=== PATIENT | male | born 1965 | race Caucasian/White ===

== ENCOUNTER → 2020-08-06 13:44 | Outpatient (CLI) | payer BC, SELFPAY ==
[2020-08-06 14:49] LABS: COVID19 -Nasal RAPID Negative (Negative)
== END ==
PROVIDERS: PCP Student in an Organized Health Care Education/Training Program; Visit Provider Nurse Practitioner
DX: Z20.822 Contact with and (suspected) exposure to COVID-19 (principal)
CPT/HCPCS: 87635

== ENCOUNTER 2020-08-08 13:28 | Day surgery (SDC) | payer BC, SELFPAY ==
[2020-08-08] VITALS (7 sets, daily range): BP systolic 141–154; BP diastolic 85–99; PULSE 46–67; RESP 10–20; TEMP 36.2–36.8; O2SAT 93–99; BMI 34.4
--- NOTE | 2020-08-08 | PATH_ITS ---
[facility] Accession Number: [id number] . 01 Material submitted: . PART A: cecum - CECAL POLYP 2 MM PART B: sigmoid colon - SIGMOID COLON 8 MM . 01 Clinical history: . SCREENING COLONOSCOPY . 02 Diagnosis: A. Cecal Polyp, 2 mm, Biopsy: Tubular adenoma. . B. Sigmoid Colon Polyp, 8 mm, Biopsy: Tubular adenoma. MRV 08/13/2020 1032 Local . 02 Electronically signed: . Ebenezer Patton MD, PhD, Pathologist NPI- [id number] . 01 Gross description: . Part A: CECAL POLYP 2 MM: Received in formalin is 1 fragment(s) of jeffries, soft tissue measuring 0.1 x 0.1 x 0.1 cm submitted entirely in 1 cassette(s) Part B: SIGMOID COLON 8 MM: Received in formalin are 4 fragment(s) of jeffries, soft tissue measuring 0.2 x 0.2 x 0.2 cm to 0.4 x 0.3 x 0.2 cm submitted entirely in 1 cassette(s) /TRE 08/11/2020 1930 Local . 02 Pathologist provided ICD-10: D12.0, D12.5 . 02 CPT . 133237, [id number] Performed at: 01 [facility] [address], [place], [place] [id number] MD Iam Lind MD Phone: [phone] Performed at: 02 [facility] [address] [place], [place] [id number] MD Angie Rollins MD Phone: [phone]
--- NOTE | 2020-08-08 | DI.RAD.S_ITS ---
PROCEDURE: XR ABDOMEN 1V INDICATIONS: distended abd TECHNIQUE: One view of the abdomen acquired. 2 images. Decubitus. COMPARISON: None. FINDINGS: Surgical changes and devices: None. Bowel: Gaseous distension of bowel loops on this decubitus radiograph. Small air-fluid levels. No obvious pneumoperitoneum. Possible small clip in the pelvis. Soft tissues: No suspicious abdominal calcifications. Visualized solid organ contours appear normal in size. Bones: No suspicious bony lesions. IMPRESSION: No obvious pneumoperitoneum. Upright abdominal radiograph or CT abdomen pelvis with IV contrast could be considered for further evaluation. Dictated by: Daniel Valencia M.D. on 08/08/2020 at 15:53 Approved by: Daniel Valencia M.D. on 08/08/2020 at 15:55
--- NOTE | 2020-08-08 | DI.RAD.S_ITS ---
PROCEDURE: XR ABDOMEN 1V INDICATIONS: r/o perforation, abdominal distention s/p colonosocopy TECHNIQUE: One view of the abdomen acquired. COMPARISON: [facility], CR, XR ABDOMEN 1V, 08/08/2020, 15:42. FINDINGS: Surgical changes and devices: Clip versus is Mallory catheter in the pelvis. Bowel: There is gaseous distension of the colon. Small air-fluid level in the cecum. Scattered small bowel gas. No pneumoperitoneum is seen under the diaphragm. Soft tissues: No suspicious abdominal calcifications. Visualized solid organ contours appear normal in size. Visualized lung bases are unremarkable. Bones: No suspicious bony lesions. IMPRESSION: No free air under the diaphragm is seen. If symptoms persist or high suspicion for occult perforation recommend CT abdomen pelvis with IV contrast. Dictated by: Daniel Valencia M.D. on 08/08/2020 at 16:43 Approved by: Daniel Valencia M.D. on 08/08/2020 at 16:46
--- NOTE | 2020-08-08 12:10 | PM.HP.1 ---
History of Present Illness History of Present Illness Date Patient Seen: 08/08/20 Chief complaint: SCREENING COLONOSCOPY Narrative: 54 Years Old Male seen today fo consideration of a screening colonoscopy. There have been no lower GI symptoms suggesting disease such as change in bowel habits, bleeding, abdominal pain or anemia. There's been no family history of colon cancer or colon polyps. Overall health issues have been stable, including no major cardiac events for at least 6 weeks. 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 Household Members: 2 Education: [employer] Patient History Family & Social History Family History Family/Other Obesity Father Loud snoring Heart disease Mother Obesity Dementia Family/Other Obesity Tobacco & Substance use: Smoking Status Current every day smoker Meds Home Medications and Allergies Home Medications Medication Instructions Recorded Confirmed Type aspirin 81 mg tablet,delayed 81 mg PO DAILY 05/22/20 08/08/20 History release atorvastatin 10 mg tablet 30 mg PO DAILY tab 05/22/20 08/08/20 History lisinopril 20 1 tab PO DAILY 05/22/20 08/08/20 History mg-hydrochlorothiazide 12.5 mg tablet Allergies Allergy/AdvReac Type Severity Reaction Status Date / Time No Known Drug Allergies Allergy Verified 08/08/20 14:08 Review of Systems Review of Systems ROS: Yes All systems reviewed with the patient and are negative except as otherwise documented Exam Narrative Exam Narrative: General: well developed, well nourished, in no acute distress, Head: normocephalic and atraumatic, Lungs: normal respiratory effort, clear bilaterally to auscultation, no wheezes rales or rhonchi. (unchanged from 04/02/2020) Heart: normal rate and regular rhythm, no murmurs, rubs, gallops, or clicks, Abdomen: abdomen soft and non-tender without masses, organomegaly, or abdominal wall hernias, bowel sounds positive. (unchanged from 04/02/2020) Skin: intact without suspicious lesions or rashes, Psych: alert and cooperative; normal mood and affect; normal attention span and concentration; cognition, remote and recent memory appear to be intact, Assessment & Plan Assessment & Plan narrative: 1. Screening for colon cancer Plan for colonoscopy. The nature and character of the procedure as well as anticipated results were discussed. The possibility of not completing the procedure was also discussed. Possible complications including aspiration pneumonia, bleeding, perforation and reaction to medications either for sedation or preparation and missed lesions were discussed. Questions were answered and proceeding to the colonoscopy was elected. Informed consent signed. I sincerely appreciate the referral allowing me to participate in this patient's care. Please contact me with any questions or concerns.
--- NOTE | 2020-08-08 12:12 | P.OP.ENDO_ITS ---
Operative Date/Time/Diagnoses Date of procedure: 08/08/20 Procedure Notes SCOAP/Timeout: 14:37 Procedure in detail: ENDOSCOPIST: Radha Brito MD Sedation RN: Nathanael Ingram Rn Sedation start time: 2:38 p.m. Sedation end time: 3:15 p.m. PROCEDURE: Colonoscopy with methylene blue lift, cold snare, and placement of hemoclip INDICATIONS: 1. Screening for colon cancer MEDICATION: Levsin 0.125 mg sublingual, incremental doses of Versed and fent anyl until appropriate level sedation achieved. ASA CLASS: 2 CECAL WITHDRAWAL TIME: 27 minutes COMPLICATIONS: None. EXTENT OF PROCEDURE: Cecum. QUALITY OF PREP: Good with portions of liquid stool. PROCEDURE: Prior to insertion of the colonoscope, a digital rectal examination was accomplished with circumferential palpation of the distal rectal mucosa without significant findings being noted. The high-definition colonoscope was passed into the rectum in the usual fashion and advanced over to the cecum without difficulty. The ileocecal valve, appendiceal stoma, and medial wall all could be inspected and a 2 mm polyp was seen and removed with cold biopsy forceps. ASCENDING COLON: As the colonoscope was withdrawn, care was taken to expose and inspect the haustral folds and no abnormalities were seen. HEPATIC FLEXURE: Normal, no polyps, diverticula or other abnormalities. TRANSVERSE COLON: Normal, no polyps, diverticula or other abnormalities. DESCENDING COLON: Normal, no polyps, diverticula or other abnormalities. SIGMOID COLON: 8 mm polyp lifted with methylene blue and removed with cold snare, hemoclip placed x1 with excellent hemostasis. Otherwise, no diverticula or other abnormalities. RECTUM: Normal. J maneuver was produced. There was no significant perianal disease. The J maneuver was broken. The remainder of the rectum was inspected and there was no external hemorrhoid disease. The scope was withdrawn. IMPRESSION: 1. Cecal polyp x1, 2 mm, removed with cold biopsy forceps 2. Sigmoid polyp x1, 8 mm, lifted with methylene blue and removed with cold snare PLAN: 1. Follow-up in clinic status post pathology results. The possibility of a missed lesion including a malignancy has been discussed with the patient previously. Potential alarm symptoms have been discussed and should be reported immediately.
[2020-08-08] MEDS: LACTATED RINGERS 1,000 ML 200 ML IV (14:11)
[2020-08-08] MEDS: HYOSCYAMINE 0.125 MG TABLET PO (14:11)
[2020-08-08] MEDS: METHYLENE BLUE 50 MG/10 ML VIAL 10 MG IV (15:05)
[2020-08-08] MEDS: MIDAZOLAM 5 MG/5 ML VIAL IV (15:07)
[2020-08-08] MEDS: fentaNYL 250 MCG/5 ML INJ IV (15:07)
--- NOTE | 2020-08-08 16:36 | SUR.PHASEII ---
Addendum entered by Maria Luisa Townsend R.N. 08/08/20 16:51: Report to Merrick Marlow. Discharge pending review of most recent xray. Original Note: after pts procedure, Dr Brito arrived at for follow up. Pt reported increase in discomfort and abd was noted to be somewhat distended. 1V portable xray was order, results posted. After this procedure pt requested use of the BR as he could feel the air moving thru. Pt stated he relieved a large amount of gas. Dr Brito returned to and then requested an upright view of the abd. Pt was transported by [facility] to . Dr Flores was requested to consult on pt. Results of xray pending.
--- NOTE | 2020-08-08 17:10 | PM.CN ---
History of Present Illness Consult details Date Patient Seen: 08/08/20 Time Patient Seen: 17:10 Chief complaint: SCREENING COLONOSCOPY Reason for consult: concern for possible colon perforation Requesting provider: Radha Brito Narrative: This is a 54 yo man who came in today for screening colonoscopy. He has a history of obesity (BMI 34.5), HTN, vertigo, HLD, and tobacco smoking. He denies any history of abdominal surgery. He reports no history of change in bowel habits, melena or hematochezia, and no family history of colon cancer or colon polyps. Today during his colonoscopy by Dr. Brito he had two polyps removed from the cecum using forceps, and an 8mm polyp removed from the sigmoid colon using lift and snare, with placement of a hemoclip after polyp removal. Per Dr. Brito, he initially complained of significant pain and discomfort upon arrival into the recovery room. His vitals were normal, without tachycardia or hypotension. A supine xray was obtained that showed no free air. He passed some flatus and began to feel a little bit better. An upright xray was obtained, and Dr. Brito called me to see the patient. Upon coming to see him, the patient reports he is now feeling better and better, and he no longer has any significant abdominal discomfort. He reports a bit of epigastric fullness which he continually says is improving. He denies any shoulder pain or any pelvic pain. His upright xray reveals no free air. The position of the hemoclip appears to be low in the pelvis, and may be below the peritoneal reflection. PMH: Hypertension, benign Vertigo Hyperlipidemia Obesity Smoker PSH: Colonoscopy with polypectomy x3 today right foot tendon repair, 2010 FMH: Father heart disease, mother Alzheimer's, sister ALS SOC: , employed, tobacco smoker Allergies: NKDA Home meds: ASA, atorvastatin, lisinopril ROS: Thirteen system review is otherwise negative other than as mentioned below and in HPI. PE: GENERAL: Alert, comfortable. Obese. Appears stated age. Answers questions promptly and appropriately. Vital signs noted. HENT: Normocephalic, atraumatic. Hearing intact. EYES: Conjunctiva pink, sclera white, no periorbital swelling. CARDIOVASCULAR: Slightly bradycardic at 46-59. No pedal edema. RESPIRATORY: Non-tachypneic, breathing comfortably on room air. GASTROINTESTINAL: Abdomen soft, obese, rounded, no left lower quadrant or pelvic tenderness, no tenderness in any quadrant of the abdomen GENITALURINARY: No flank tenderness. MUSCULOSKELETAL: Equal tone and mass bilaterally. No shoulder tenderness. SKIN: Warm, dry, soft, appropriate color for ethnicity. No other lesions, rashes, or wounds. NEURO: Alert and Oriented X 3. No gross sensory deficits, or cognitive issues. PSYCH: Appropriate affect and mood. Meds Home Medications and Allergies Home Medications Medication Instructions Recorded Confirmed Type aspirin 81 mg tablet,delayed 81 mg PO DAILY 05/22/20 08/08/20 History release atorvastatin 10 mg tablet 30 mg PO DAILY tab 05/22/20 08/08/20 History lisinopril 20 1 tab PO DAILY 05/22/20 08/08/20 History mg-hydrochlorothiazide 12.5 mg tablet Allergies Allergy/AdvReac Type Severity Reaction Status Date / Time No Known Drug Allergies Allergy Verified 08/08/20 14:08 Exam Vital Signs (past 8 hours): - 08/08/20 13:59 08/08/20 15:22 08/08/20 15:27 Temperature 98.0 F 97.2 F L Pulse Rate 67 55 L 54 L Respiratory Rate 17 14 18 Blood Pressure 146/91 H 149/85 H 143/92 H Pulse Oximetry 96 94 93 08/08/20 15:32 08/08/20 15:47 08/08/20 16:06 Temperature 98.3 F Pulse Rate 59 L 51 L 53 L Respiratory Rate 10 L 20 13 Blood Pressure 141/90 H 148/92 H 150/99 H Pulse Oximetry 96 98 97 08/08/20 16:55 Temperature 97.5 F L Pulse Rate 46 L Respiratory Rate 16 Blood Pressure 154/94 H Pulse Oximetry 99 Oxygen Delivery Method Room Air Objective Imaging Abdominal x-ray: Radiologist's impression: [address] [id number] ReportSigned Patient: Gino Hyman [facility]#: [id number]: 1965Acct:[id number]/Sex: 54 / MDate of Service: 08/08/20Loc: ENDOAccession Number: [id number] Procedure: XR abdomen 1V Ordering Provider: Radha Brito MD PROCEDURE: XR ABDOMEN 1V INDICATIONS: r/o perforation, abdominal distention s/p colonosocopy TECHNIQUE: One view of the abdomen acquired. COMPARISON: [facility], CR, XR ABDOMEN 1V, 08/08/2020, 15:42. FINDINGS: Surgical changes and devices: Clip versus is Mallory catheter in the pelvis. Bowel: There is gaseous distension of the colon. Small air-fluid level in the cecum. Scattered small bowel gas. No pneumoperitoneum is seen under the diaphragm. Soft tissues: No suspicious abdominal calcifications. Visualized solid organ contours appear normal in size. Visualized lung bases are unremarkable. Bones: No suspicious bony lesions. IMPRESSION: No free air under the diaphragm is seen. If symptoms persist or high suspicion for occult perforation recommend CT abdomen pelvis with IV contrast. Dictated by: Daniel Valencia M.D. on 08/08/2020 at 16:43 Approved by: Daniel Valencia M.D. on 08/08/2020 at 16:46 Assessment & Plan Assessment and plan (1) Abdominal pain: Status: Acute (2) Obesity (BMI 30.0-34.9): Status: Acute (3) Status post colonoscopy with polypectomy: Status: Acute (4) Hypertension: Status: Acute (5) Hyperlipidemia: Status: Acute Assessment & Plan narrative: I was asked by Dr. Brito to see this patient out of concern for possible perforation from his colonoscopy today. His exam at this point is quite benign. He has no pelvic pain, no shoulder pain, no left lower quadrant pain. His x-rays reveal no free air, and appear to have a normal gas pattern for post colonoscopy. IC the hemoclip from his procedure, which appears to be low in the colon and may be below the peritoneal reflection, which decreases the risk of free perforation as well. Given the benign appearance of his exam, his x-rays, and the description of the procedure, my suspicion is very low that he has a perforation of the colon. I think it is reasonable to let him go home, with strict return precautions that he should come into the ER if he is having fevers, nausea, vomiting, worsening abdominal pain, or other concerning symptoms. He should have someone at home observing him, or available to check in on him during the weekend. 17 minutes were spent discussing his case with Dr. Brito, and examining the patient. 4 minutes were spent reviewing his x-rays. Recommendations: Discharge home with a reliable helper who will check in on him over the weekend, and with strict return precautions as described above COVID-19 COVID-19 status: Negative Result date/Date tested (Pos, Neg/Pending): 08/06/20 Time Spent With Patient Time with patient: 15-24 minutes
== END 2020-08-08 17:08 | disposition home or self-care (01) ==
PROVIDERS: PCP Student in an Organized Health Care Education/Training Program; Referring Provider Student in an Organized Health Care Education/Training Program; Visit Provider Student in an Organized Health Care Education/Training Program
PROC: 0DJD8ZZ Inspection of Lower Intestinal Tract, Via Natural or Artificial Opening Endoscopic (ICD-10-PCS; CPT 45378; principal; 2020-08-08 14:30)
DX: Z12.11 Encounter for screening for malignant neoplasm of colon (principal); K42.9 Umbilical hernia without obstruction or gangrene; I10 Essential (primary) hypertension; E78.5 Hyperlipidemia, unspecified; E66.9 Obesity, unspecified; F17.210 Nicotine dependence, cigarettes, uncomplicated; Z68.34 Body mass index [BMI] 34.0-34.9, adult; D12.0 Benign neoplasm of cecum; D12.5 Benign neoplasm of sigmoid colon
CPT/HCPCS: 45390; 45385; 45382; 74018; J2250; J3010; Q9968

== ENCOUNTER → 2020-08-29 08:45 | Outpatient (CLI) | payer BC, SELFPAY ==
--- NOTE | 2020-08-29 09:52 | DI.CT.S_ITS ---
PROCEDURE: CT ABDOMEN PELVIS W CON INDICATIONS: Umbilical hernia without obstruction or gangrene TECHNIQUE: After the administration of oral and intravenous contrast, 5 mm thick sections acquired from the diaphragms to the symphysis. 5 mm thick coronal and sagittal reformats were performed. For radiation dose reduction, the following was used: automated exposure control, adjustment of mA and/or kV according to patient size. COMPARISON: None. FINDINGS: Image quality: Excellent. ABDOMEN: Lung bases: Lung bases are clear. Heart size is normal. Solid organs: Liver is normal in size and enhancement. Gallbladder is normal. Biliary system is non-dilated. Pancreas enhances normally. Spleen is normal in size and enhancement. No adrenal nodules. Kidneys are normal in size and enhancement, without hydronephrosis. Peritoneum and bowel: Stomach, small bowel, and colon loops are normal in caliber and wall thickness. Occasional diverticula in the colon. Normal appendix. No free fluid or air. Nodes and vessels: No retroperitoneal or mesenteric adenopathy. Aorta and inferior vena cava are normal in caliber. Miscellaneous: Fat containing umbilical hernia has a narrow neck measuring about 1.4 x 1.3 cm. There is minimal induration in the herniated fat. No fluid in the hernia sac. PELVIS: Genitourinary: Bladder wall thickness is normal. Miscellaneous: No inguinal hernias or adenopathy. Bones: No suspicious bony lesions. There are severe degenerative disc changes at L5-S1. No vertebral body compression fractures. IMPRESSION: 1. Small, narrow necked fat containing umbilical hernia. No evidence of significant intrinsic inflammation or fluid. Dictated by: Cynthia Ibarra M.D. on 08/29/2020 at 10:46 Approved by: Cynthia Ibarra M.D. on 08/29/2020 at 10:52
== END ==
PROVIDERS: PCP Student in an Organized Health Care Education/Training Program; Referring Provider Student in an Organized Health Care Education/Training Program; Visit Provider Student in an Organized Health Care Education/Training Program
DX: K42.9 Umbilical hernia without obstruction or gangrene (principal)
CPT/HCPCS: 74177; Q9967

== ENCOUNTER → 2020-09-12 11:02 | Outpatient (CLI) | payer BC, SELFPAY ==
[2020-09-12 11:37] LABS: COVID19 -Nasal RAPID Negative (Negative)
== END ==
PROVIDERS: PCP Student in an Organized Health Care Education/Training Program; Visit Provider Surgery
DX: Z20.822 Contact with and (suspected) exposure to COVID-19 (principal)
CPT/HCPCS: 87635; C9803

== ENCOUNTER 2020-09-15 11:50 | Day surgery (SDC) | payer BC, SELFPAY ==
[2020-09-15] MEDS: LACTATED RINGERS 1,000 ML 42 ML IV (12:07)
[2020-09-15] MEDS: ACETAMINOPHEN 325 MG TABLET 975 MG PO (12:09)
[2020-09-15 12:12] VITALS: BP 150/90; PULSE 52; RESP 16; TEMP 36.6; O2SAT 98; BMI 34.4
--- NOTE | 2020-09-15 12:39 | PM.PREOP ---
Pre-operative Note COVID-19 COVID-19 status: Negative Result date/Date tested (Pos, Neg/Pending): 09/12/20 Interval Note History & Physical reviewed/Exam performed by Physician: Yes Changes to H&P: No H&P completed within 30 days and has changed as indicated here:: Patient has not yet quit smoking, although we did discuss at his office visit that he was going to quit smoking that day. I again reiterated to him the importance of smoking cessation as cigarette smoking increases the risk of wound infection and hernia recurrence. He verbalized understanding of this and says he plans to quit smoking today.
[2020-09-15] MEDS: CEFAZOLIN 2 GM/100 ML FROZ.PIGGY IV (13:00)
--- NOTE | 2020-09-15 13:10 | SUR.OPER ---
Supine on padded OR bed, head on pillow, arms secured on padded arm boards at <90 degrees abduction, legs uncrossed, safety belt at thigh, tape over blanket over lower legs.
[2020-09-15] MEDS: BUPIVACAINE LIPOSOME 266 MG/20 ML VIAL INJ (13:22)
[2020-09-15] MEDS: BUPIVACAINE 0.5% W/ EPI (PF) 30 ML VIAL INJ (13:22)
[2020-09-15 13:48] VITALS: BP 130/74; PULSE 73; RESP 12; TEMP 36.8; O2SAT 90
[2020-09-15 13:53] VITALS: BP 119/74; PULSE 71; RESP 93; O2SAT 10
--- NOTE | 2020-09-15 13:54 | P.OP_ITS ---
Operative Date/Time/Diagnoses Date of procedure: 09/15/20 Time of procedure: 13:54 Pre-op diagnosis: Non reducible umbilical hernia Post-op diagnosis: other (Umbilical hernia with incarcerated omentum) Procedure & Clinicians Procedure: Open repair of umbilical hernia with mesh Same procedure as scheduled: Yes Indications: Painful umbilical hernia Surgeon: Luanne Flores Click Yes if Unassisted: Yes Anesthesia Type: General Operative Notes Findings: 1.5cm umbilical hernia defect with 3cm hernia sac, non reducible with omentum incarcerated in the sac. Specimen(s): none sent Prosthetic devices, grafts, tissues, transplants, or devices: BARD 4.3cm ventralex mesh Estimated Blood Loss (mL): 2 Procedure in detail: The patient was brought to the operating room, placed supine on the operating table, and sequential compression devices were placed on both legs and turned on. Appropriate perioperative antibiotics were given. General anesthesia was induced by the anesthesiologist and the patient was intubated. The abdomen was then prepped and draped in sterile fashion, and a surgical time-out was conducted. At this point local anesthetic was injected using 0.5% Marcaine with epi, at the site of the planned incision. A 3cm transverse curvilinear incision was then made in the skin on the superior border of the umbilicus. Dissection was then carried down through the dermis and subcutaneous tissue, until the hernia sac was encountered. The sac contents were not reducible. I dissected circumferentially around the hernia sac, and off of the umbilical skin. I opened the sac and encountered incarcerated omentum. It was not ischemic. Once it was freed from the sac, the omentum and sac could be reduced. The hernia defect was [1.5 cm] in diameter. The hernia sac was reduced through the defect, and a [4.3cm] BARD Ventralex mesh was brought into the field and placed into the defect, between the peritoneum and the fascia. It was then sutured to the fascia in four corners using 2-0 PDS suture. I then closed the defect with 2-0 PDS figure of eights. I then injected the fascia with another 10mL of 0.5% Marcaine with epi, and 20mL of Exparel in small aliquots. I then closed the subcutaneous fat and tacked down the umbilical skin with 3-0 Vicryl. I closed the skin with subcuticular Monocryl 4-0. The skin edges were then sealed with Dermabond. This concluded the procedure. Two cotton balls were placed in the umbilicus and covered with a Tegaderm. As the patient was awakened from anesthesia he had a prolonged episode of coughing. I held pressure on the repair as he was awakened from anesthesia and extubated. Once he stopped coughing, he was transferred onto his hospital [facility]. The patient was then transferred to the postanesthesia care unit in stable condition. He tolerated the procedure well. Needle sponge and instrument counts were correct x2 at the end of the case. Complications: none Post-operative Condition: stable Disposition: PACU
[2020-09-15 13:58] VITALS: BP 126/79; PULSE 70; RESP 10; O2SAT 93
--- NOTE | 2020-09-15 13:58 | SUR.PHASEI ---
Received to PACU after general anesthesia. Oral airway in place. No further assistance required. Report received from Dr Doran and Luca RN. 1343 - Oral airway removed without difficulty.
[2020-09-15 14:03] VITALS: BP 130/83; PULSE 63; RESP 10; TEMP 36.2; O2SAT 94
[2020-09-15 14:07] VITALS: BP 123/82; PULSE 64; RESP 10; TEMP 36.2; O2SAT 93
== END 2020-09-15 14:28 | disposition home or self-care (01) ==
PROVIDERS: PCP Student in an Organized Health Care Education/Training Program; Referring Provider Surgery; Visit Provider Surgery
PROC: (CPT 49587; principal; 2020-09-15 13:45)
DX: K42.0 Umbilical hernia with obstruction, without gangrene (principal); G47.33 Obstructive sleep apnea (adult) (pediatric); I10 Essential (primary) hypertension; E66.9 Obesity, unspecified; K21.9 Gastro-esophageal reflux disease without esophagitis; F17.210 Nicotine dependence, cigarettes, uncomplicated; Z68.35 Body mass index [BMI] 35.0-35.9, adult
CPT/HCPCS: 49587; 82962; C1781; C9290; J0330; J0690; J1100; J1885; J2250; J2405; J2704; J3010

== ENCOUNTER → 2020-10-13 11:47 | Outpatient (CLI) | payer BC, SELFPAY ==
[2020-10-13 13:57] LABS: COVID19 -Nasal RAPID Negative (Negative)
== END ==
PROVIDERS: PCP Student in an Organized Health Care Education/Training Program; Visit Provider Family Medicine Sleep Medicine
DX: Z20.822 Contact with and (suspected) exposure to COVID-19 (principal)
CPT/HCPCS: 87635

== ENCOUNTER 2021-02-02 09:27 | Emergency (ER) | payer BC, SELFPAY ==
[2021-02-02 09:30] VITALS: BP 159/94; PULSE 64; RESP 14; TEMP 36.6; O2SAT 99
[2021-02-02 10:13] LABS: Add Manual Diff / Slide Review NO; Basophils Absolute Auto 0 /uL (0-100); Basophils Percent Auto 0.5 % (0-2); Eosinophils Absolute Auto 300 /uL (0-450); Hemoglobin 14.6 g/dL (13.5-17.5); Lymphocytes Absolute Auto 2200 /uL (1100-4500); Lymphocytes Percent Auto 23.7 % (25-40); Mean Corpuscular HGB Conc 34.8 % (30-36); Mean Corpuscular Hemoglobin 35.5 PG (26-34); Mean Corpuscular Volume 101.8 fL (80-100); Monocytes Absolute Auto 700 /uL (0-900); Monocytes Percent Auto 7.7 % (3-14); Neutrophils Absolute Auto 6100 /uL (1500-7000); Neutrophils Percent Auto 65.1 % (50-75); Platelet Count 169 X10^3/uL (150-400); Red Blood Cell Count 4.13 X10^6/uL (4.5-5.9); Red Cell Distribution Width 12.9 % (11.6-14.8); White Blood Cell Count 9.4 X10^3/uL (4.5-11.0)
--- NOTE | 2021-02-02 10:15 | ED.ABDPAIN ---
HPI - Abdominal Pain General Chief Complaint: Abdominal Pain Stated Complaint: abd pain sent by [facility] Time Seen by Provider: 02/02/21 09:55 Source: patient Mode of arrival: Ambulatory Limitations: no limitations History of Present Illness HPI narrative: Patient is a 55-year-old male who presents with left lower quadrant pain ongoing for the last 3 days. He says it has progressively gotten worse. He had colonoscopy earlier this year he had a couple polyps removed. He denies any fever no nausea or vomiting. No blood in his stool. No change in bowel habits. No prior history of diverticulitis. He denies any flank pain or blood in his urine. Location: [facility] Radiation: none Migration to: no migration Related Data Home Medications Medication Instructions Recorded Confirmed aspirin 81 mg tablet,delayed 81 mg PO DAILY 05/22/20 09/24/20 release (Adult Low Dose Aspirin) atorvastatin 10 mg tablet 30 mg PO DAILY tab 05/22/20 09/24/20 lisinopril 20 1 tab PO DAILY 05/22/20 09/24/20 mg-hydrochlorothiazide 12.5 mg tablet Previous Rx's Medication Instructions Recorded docusate sodium 100 mg capsule 100 mg PO BID #20 cap 09/15/20 ciprofloxacin HCl 500 mg tablet 500 mg PO BID #20 tab 02/02/21 (Cipro) metronidazole 500 mg tablet 500 mg PO Q8H #30 tab 02/02/21 (Flagyl) Allergies Allergy/AdvReac Type Severity Reaction Status Date / Time No Known Drug Allergies Allergy Verified 02/02/21 08:59 Review of Systems Review of Systems Narrative: GENERAL: Denies chills, fatigue, malaise, fever, sweats, travel HEENT: Denies sinus pain, ear pain, sore throat, difficulty swallowing, neck pain RESPIRATORY: Denies dyspnea, cough, wheezing, hemoptysis, sputum. CARDIOVASCULAR: Denies chest pain, palpitations, orthopnea, edema GASTROINTESTINAL: See HPI : Denies dysuria, frequency, incontinence, hematuria, urinary retention, flank pain. MUSCULOSKELETAL: Denies weakness, joint pain, or bony pain SKIN: No rash, no erythema, no pruritus NEUROLOGIC: Denies weakness, dizziness, headache, numbness, change in speech, confusion PSYCHIATRIC: No concerning psychosocial issues. 12 point review of systems is negative except for those stated above and HPI Patient History Medical History Abdominal pain Benign essential HTN GERD (gastroesophageal reflux disease) Hyperlipidemia Idiopathic hypersomnia Obesity (BMI 30-39.9) Obstructive sleep apnea, adult Tobacco use disorder, continuous Umbilical hernia Vertigo Surgical History History of colonoscopy with polypectomy S/P hernia repair S/P tendon repair Status post colonoscopy with polypectomy Family History Family/Other Obesity Father Loud snoring Heart disease Mother Obesity Dementia Family/Other Obesity Social History household members: spouse and none Smoking Status: Current every day smoker alcohol intake: current Smoking Status: Current every day smoker alcohol intake frequency: 3 or more drinks per day Substance Use Type: does not use Exam Initial Vital Signs Initial Vital Signs: Vital Signs Temperature 97.9 F 02/02/21 09:30 Pulse Rate 64 02/02/21 09:30 Respiratory Rate 14 02/02/21 09:30 Blood Pressure 159/94 H 02/02/21 09:30 Pulse Oximetry 99 02/02/21 09:30 GENERAL: Alert 55-year-old male and in no acute] distress. HEENT: Head atraumatic,EOMI, pupils reactive, face symmetric, [moist] mucous membranes CARDIOVASCULAR: Regular rate and rhythm without murmurs, rubs or gallops. RESPIRATORY: Breath sounds equal bilaterally, no wheezes rales or rhonchi. ABDOMEN: Soft, of lower quadrant pain no guarding or rebound EXTREMITIES: Normal range of motion, no clubbing or edema. Neurovascularly intact NEUROLOGICAL: Alert and oriented x4.Normal gait and speech. SKIN: Warm, dry, no laceration, no petechiae, no rashes or lesions. Course Orders Ordered: Discontinued Medications Ketorolac Tromethamine (Ketorolac 30 Mg/Ml Vial) 15 mg IV NOW ONE Stop: 02/02/21 10:23 Last Admin: 02/02/21 10:36 Dose: 15 mg Documented by: RAMOS Vital Signs Vital signs: Vital Signs - 8 hr 02/02/21 11:31 Pulse Rate 60 Respiratory Rate 19 Blood Pressure 146/88 H Pulse Oximetry 97 MDM - Abdominal Pain Lab Data Result diagrams: 02/02/21 10:07 02/02/21 10:07 Labs: Lab Results 02/02/21 02/02/21 Range/Units 10:07 10:07 WBC 9.4 (4.5-11.0) X10^3/uL RBC 4.13 L (4.5-5.9) X10^6/uL Hgb 14.6 (13.5-17.5) g/dL Hct 42.0 (41-53) % MCV 101.8 H (80-100) fL MCH 35.5 H (26-34) PG MCHC 34.8 (30-36) % RDW 12.9 (11.6-14.8) % Plt Count 169 (150-400) X10^3/uL Neut % (Auto) 65.1 (50-75) % Lymph % (Auto) 23.7 L (25-40) % [place] % (Auto) 7.7 (3-14) % Eos % (Auto) 3.0 (2-4) % Baso % (Auto) 0.5 (0-2) % Neut # (Auto) 6100 (5747-4710) /uL Lymph # (Auto) 2200 (2772-6664) /uL [place] # (Auto) 700 (0-900) /uL Eos # (Auto) 300 (0-450) /uL Baso # (Auto) 0 (0-100) /uL Sodium 137 (137-145) mmol/L Potassium 4.0 (3.4-5.1) mmol/L Chloride 106 (98-107) mmol/L Carbon Dioxide 26 (22-32) mmol/L BUN 15 (9-20) mg/dL Creatinine 0.72 (0.66-1.25) mg/dL Estimated GFR > 60.0 (>60) mL/min BUN/Creatinine Ratio 20.8 (6-22) Glucose 97 (70-100) mg/dL Calcium 9.6 (8.4-10.2) mg/dL Total Bilirubin 0.5 (0.2-1.3) mg/dL AST 43 (17-59) IU/L ALT 58 H (<50) IU/L Alkaline Phosphatase 80 (38-126) U/L Total Protein 6.9 (6.3-8.2) g/dL Albumin 4.1 (3.5-5.0) g/dL Globulin 2.8 (1.7-4.1) g/dL Albumin/Globulin Ratio 1.5 (1.0-2.8) Lipase 168 (23-300) U/L Imaging Data CT scan - abdomen/pelvis: Radiologist's Impression: PROCEDURE: CT ABDOMEN PELVIS W CON INDICATIONS: llq pain x 3 days TECHNIQUE: After the administration of intravenous contrast, axial sections acquired from the lung bases to the pubic symphysis. Coronal and sagittal reformats were performed. For radiation dose reduction, the following was used: automated exposure control, adjustment of mA and/or kV according to patient size. COMPARISON: [facility], CT, CT ABDOMEN PELVIS W CON, 08/29/2020, 9:39. FINDINGS: Image quality: Excellent. Lung bases: Mild dependent atelectasis at the lung bases. Heart: No significant findings. ABDOMEN: Liver: A 5 mm hypodensity in the left hepatic lobe is too small to characterize, but most likely represents a cyst. Gallbladder: Gallbladder is mildly contracted, but otherwise appears normal. Biliary ducts: Unremarkable. Pancreas: Unremarkable. Spleen: Unremarkable. Adrenal Glands: Unremarkable. Kidneys and Ureters: Unremarkable. Stomach and Bowel: There is mild bowel wall thickening and pericolonic fat stranding in the left lower quadrant adjacent to a small diverticulum, compatible with acute diverticulitis. No macroscopic air is seen. There is no discrete fluid collection or abscess. No signs of bowel obstruction. Normal appendix. A few additional scattered diverticula are seen in the colon. Peritoneum: No abnormal intraperitoneal fluid. No free air. Ventral Wall: Postsurgical changes are seen from periumbilical hernia repair without a recurrent hernia. Abdominal Nodes: No retroperitoneal or mesenteric adenopathy by size criteria. Vessels: Aorta and inferior vena cava are normal in size. PELVIS: Pelvic Organs: Unremarkable. Bladder: Unremarkable. Pelvic Nodes: No enlarged lymph nodes. Miscellaneous: No hernias are seen. Bones: Degenerative changes are seen at the lumbosacral junction. IMPRESSION: Acute uncomplicated diverticulitis in the left lower quadrant at the junction of the descending and sigmoid colon. Findings were discussed with the referring physician, Dr. Lewis, by telephone on 02/02/2021 at approximately 10:00 AM ([place] time). Dictated by: Alejandro Hall M.D. on 02/02/2021 at 9:54 MDM Narrative Medical decision making narrative: Patient is found to have diverticulitis without any complication no leukocytosis he is afebrile. At this time outpatient treatment antibiotics seems reasonable. I discussed with him warning signs when to return to the ED. Discharge Plan Departure Patient Disposition: Home Clinical Impression: Diverticulitis Instructions: DI for Diverticulitis Activity Restrictions/Additional Instructions: *You have been diagnosed with diverticulitis *What to do: At this time he should start to feel better with antibiotics. Blood work is overall reassuring. I recommend low-fiber diet until symptoms have improved your off antibiotics then I recommend high fiber diet. *Continue to take medications as directed SENT TO [facility] [place] Cipro 500 mg twice a day for 10 days Flagyl 500 mg 3 times a day for 10 days MOTRIN 600 MG EVERY 6-8 HOURS IF NEEDED FOR [id number] PAIN *Follow up with your primary care provider in 2-3 days *Return to ER if you should have increasing abdominal pain, bloody stools, persistent fever or any new, worsening or concerning symptoms Prescriptions: New metronidazole [Flagyl] 500 mg tablet 500 mg PO Q8H Qty: 30 RF: 0 ciprofloxacin HCl [Cipro] 500 mg tablet 500 mg PO BID Qty: 20 RF: 0 No Action docusate sodium 100 mg capsule 100 mg PO BID Qty: 20 RF: 0 aspirin [Adult Low Dose Aspirin] 81 mg tablet,delayed release (DR/EC) 81 mg PO DAILY RF: 0 lisinopril-hydrochlorothiazide 20-12.5 mg tablet 1 tab PO DAILY RF: 0 atorvastatin 10 mg tablet 30 mg PO DAILY RF: 0 Referrals: Radha Brito MD [Primary Care Provider] -
[2021-02-02 10:28] LABS: Alanine Aminotransferase 58 IU/L (<50); Albumin 4.1 g/dL (3.5-5.0); Albumin Globulin Ratio 1.5 (1.0-2.8); Alkaline Phosphatase 80 U/L (38-126); Aspartate Aminotransferase 43 IU/L (17-59); BUN Creatinine Ratio 20.8 (6-22); Bilirubin Total 0.5 mg/dL (0.2-1.3); Blood Urea Nitrogen 15 mg/dL (9-20); Calcium 9.6 mg/dL (8.4-10.2); Carbon Dioxide 26 mmol/L (22-32); Chloride 106 mmol/L (98-107); Estimated Glomerular Filt Rate > 60.0 mL/min (>60); Globulin 2.8 g/dL (1.7-4.1); Glucose 97 mg/dL (70-100); HEMOLYSIS < 15 (0-50); Lipase 168 U/L (23-300); Sodium 137 mmol/L (137-145); Total Protein 6.9 g/dL (6.3-8.2)
[2021-02-02] MEDS: KETOROLAC 30 MG/ML VIAL 15 MG IV (10:36)
[2021-02-02 11:31] VITALS: BP 146/88; PULSE 60; RESP 19; O2SAT 97
== END 2021-02-02 11:32 | disposition home or self-care (01) ==
PROVIDERS: Emergency Provider Emergency Medicine; PCP Student in an Organized Health Care Education/Training Program
DX: K57.92 Diverticulitis of intestine, part unspecified, without perforation or abscess without bleeding (principal)
CPT/HCPCS: 36415; 74177; 80053; 83690; 85025; 96374; 99284; J1885; Q9967

== ENCOUNTER 2021-11-06 11:26 | Emergency (ER) | payer OTHER, SELFPAY ==
[2021-11-06 12:01] VITALS: BP 174/99; PULSE 72; RESP 14; TEMP 36.2; O2SAT 98; BMI 36.0
[2021-11-06] MEDS: KETOROLAC 30 MG/ML VIAL IM (12:09)
--- NOTE | 2021-11-06 13:41 | ED_ITS ---
HPI - Extremity Injury (Upper) <Jono Castelan PA-C - Last Filed: 11/06/21 17:16> General Chief Complaint: Extremity Injury, Upper Stated Complaint: bisept extreme pain last three days Time Seen by Provider: 11/06/21 13:38 Source: patient Mode of arrival: Ambulatory History of Present Illness HPI narrative: This is a 56-year-old male presents to the emergency department due to left biceps injury 3 days ago. States that he was lifting a TV when he felt a ?pop? the left biceps. Went to the urgent care clinic who stated they put a referral in for Orthopedics but states he has not heard back. Denies any numbne ss in the distal extremity. Still able to move the distal fingers and hands. Reports moderate to severe pain the left distal bicep area. Maintains mild range of motion at the elbow but causes him pain. Related Data Home Medications Medication Instructions Recorded Confirmed aspirin 81 mg tablet,delayed 81 mg PO DAILY 05/22/20 07/23/21 release (Adult Low Dose Aspirin) atorvastatin 10 mg tablet 30 mg PO DAILY tab 05/22/20 07/23/21 lisinopril 20 1 tab PO DAILY 05/22/20 07/23/21 mg-hydrochlorothiazide 12.5 mg tablet ResMed AirSense 10 Auto 07/23/21 07/23/21 Previous Rx's Medication Instructions Recorded docusate sodium 100 mg capsule 100 mg PO BID #20 cap 09/15/20 ciprofloxacin HCl 500 mg tablet 500 mg PO BID #20 tab 02/02/21 (Cipro) metronidazole 500 mg tablet 500 mg PO Q8H #30 tab 02/02/21 (Flagyl) hydrocodone 5 mg-acetaminophen 325 1 tab PO Q6H PRN 5 Days #20 tab 11/06/21 mg tablet Allergies Allergy/AdvReac Type Severity Reaction Status Date / Time No Known Drug Allergies Allergy Verified 11/06/21 12:06 Review of Systems <Jono Castelan PA-C - Last Filed: 11/06/21 17:16> Review of Systems Narrative: See HPI Patient History <Jono Castelan PA-C - Last Filed: 11/06/21 17:16> Medical History Abdominal pain Benign essential HTN GERD (gastroesophageal reflux disease) Hyperlipidemia Idiopathic hypersomnia Obesity (BMI 30-39.9) Obstructive sleep apnea, adult Tobacco use disorder, continuous Umbilical hernia Vertigo Surgical History History of colonoscopy with polypectomy S/P hernia repair S/P tendon repair Status post colonoscopy with polypectomy Family History Family/Other Obesity Father Loud snoring Heart disease Mother Obesity Dementia Family/Other Obesity Social History household members: spouse and none Smoking Status: Current every day smoker alcohol intake: current Smoking Status: Current every day smoker alcohol intake frequency: 3 or more drinks per day Substance Use Type: does not use Exam <Jono Castelan PA-C - Last Filed: 11/06/21 17:16> Narrative Exam Narrative: GENERAL: 56 year old patient appears stated age. Well-developed patient, in mild distress. HEAD: Atraumatic. Normocephalic. EYES: Pupils equal round and reactive. Extraocular motions intact. No scleral icterus. No injection or drainage. ENT: Nose without bleeding, purulent drainage. Throat without erythema, tonsillar hypertrophy or exudate. Airway patent. NECK: Trachea midline. Non tender CARDIOVASCULAR: Regular rate and rhythm without murmurs, gallops, or rubs. RESPIRATORY: Clear to auscultation. Breath sounds equal bilaterally. No wheezes, rales, or rhonchi. GASTROINTESTINAL: Abdomen soft, non-tender, nondistended. EXTREMITIES: Generalized tenderness to palpation to the left elbow. Some laxi ty noted to the left distal bicep area. Range of motion at the left elbow decreased secondary to pain. BACK: Nontender without deformity or crepitance. No flank tenderness. NEURO: AOx3. SKIN: No rash or erythema of visible areas Initial Vital Signs Initial Vital Signs: Vital Signs Temperature 97.2 F L 11/06/21 12:01 Pulse Rate 72 11/06/21 12:01 Respiratory Rate 14 11/06/21 12:01 Blood Pressure 174/99 H 11/06/21 12:01 Pulse Oximetry 98 11/06/21 12:01 <Lis Fritz DO - Last Filed: 11/06/21 20:50> Initial Vital Signs Initial Vital Signs: Vital Signs Temperature 97.2 F L 04/22/22 12:01 Pulse Rate 72 11/06/21 12:01 Respiratory Rate 14 11/06/21 12:01 Blood Pressure 174/99 H 11/06/21 12:01 Pulse Oximetry 98 11/06/21 12:01 Course <Jono Castelan PA-C - Last Filed: 11/06/21 17:16> Orders Ordered: ED Orders 11/06/21 13:50 XR elbow LT min 3V Stat 11/06/21 15:27 MR elbow LT wo con Stat Discontinued Medications Ketorolac Tromethamine (Ketorolac 30 Mg/Ml Vial) 30 mg IM NOW ONE Stop: 11/06/21 12:08 Last Admin: 11/06/21 12:09 Dose: 30 mg Documented by: GILL Consultations Consultation #1: [id number]: Spoke with Dr. Smith, orthopedics, who recommended MRI be orderedwith outpatient follow-up and calling his office on Tuesday for possible scheduling. Vital Signs Vital signs: Vital Signs - 8 hr 11/06/21 14:40 11/06/21 15:32 11/06/21 15:33 Pulse Rate 80 60 60 Respiratory Rate 18 18 18 Blood Pressure 170/90 H 167/96 H 167/96 H Pulse Oximetry 98 99 98 11/06/21 17:21 Pulse Rate 70 Respiratory Rate 16 Blood Pressure 155/78 H Pulse Oximetry 99 <Lis Fritz, - Last Filed: 11/06/21 20:50> Orders Ordered: ED Orders 11/06/21 13:50 XR elbow LT min 3V Stat 11/06/21 15:27 MR elbow LT wo con Stat Discontinued Medications Ketorolac Tromethamine (Ketorolac 30 Mg/Ml Vial) 30 mg IM NOW ONE Stop: 11/06/21 12:08 Last Admin: 11/06/21 12:09 Dose: 30 mg Documented by: GILL Vital Signs Vital signs: Vital Signs - 8 hr 11/06/21 14:40 11/06/21 15:32 11/06/21 15:33 Pulse Rate 80 60 60 Respiratory Rate 18 18 18 Blood Pressure 170/90 H 167/96 H 167/96 H Pulse Oximetry 98 99 98 11/06/21 17:21 Pulse Rate 70 Respiratory Rate 16 Blood Pressure 155/78 H Pulse Oximetry 99 MDM - Extremity Injury (Upper) <Jono Castelan PA-C - Last Filed: 11/06/21 17:16> Imaging Data Extremity x-ray #1: Radiologist's Impression: [address] [address] XRay Report Signed Patient: Gino Hyman MR#: [id number] : 1965 Acct:[id number] Age/Sex: 56 / M Date of Service: 11/06/21 Loc: ED Accession Number: [id number] ?? Procedure: XR elbow LT min 3V Ordering Provider: Jono Castelan P.A-C PROCEDURE:? XR ELBOW LT MIN 3V ? INDICATIONS:? Left elbow TTP, possible distal bicep tendon tear ? TECHNIQUE:? 3 views of the elbow were acquired.? ? COMPARISON:? None. ? FINDINGS:? ? Bones:? No fractures or dislocations.? No suspicious bony lesions.? ? Soft tissues:? No elbow joint effusion.? Medial soft tissue edema..? ? ? IMPRESSION:? Medial soft tissue edema. ? ? Dictated by: Dane Kaur M.D. on 11/06/2021 at 14:49 ? ? Approved by: Dane Kaur M.D. on 11/06/2021 at 14:50 ? Extremity x-ray #2: Radiologist's Impression: [address] [address] Magnetic Resonance Report Signed Patient: Gino Hyman MR#: [id number] : 1965 Acct:[id number] Age/Sex: 56 / M Date of Service: 11/06/21 Loc: ED Accession Number: [id number] ?? Procedure: MR elbow LT wo con Ordering Provider: Jono Castelan P.A-C PROCEDURE:? MR ELBOW LT W CON ? INDICATIONS:? Left distal biceps tendon injury ? TECHNIQUE:? Noncontrast coronal proton density fast spin echo and T2 fast spin echo with fat saturation, axial and sagittal T1 spin echo and T2 fast spin echo with fat saturation through the elbow.? ? COMPARISON:? [facility], , XR ELBOW LT MIN 3V, 11/06/2021, 14:02. ? FINDINGS:? Image quality:? Excellent.? ? Lateral structures:? The lateral ulnar collateral ligament and radial collateral ligament both appear intact.? The overlying common extensor tendon also appears normal.? ? Medial structures:? The ulnar collateral ligament appears intact.? The overlying common flexor tendon appears normal.? The ulnar nerve appears normal in size and signal within the cubital tunnel.? ? Anterior structures:? There is complete tearing of the distal biceps tendon.? A 1.6 cm tendon fragment is seen adjacent to the radial tuberosity, although there appears to be high-grade or complete tearing at the distal insertion.? There is approximately 6.5 cm retraction of the bulk of the tendon fibers from the radial tuberosity.? The myotendinous junction is also significantly retracted.? There is surrounding soft tissue edema and hemorrhage.? The torn tendon stump appears irregular and possibly stretched.? The distal brachialis tendon is intact.? Edema is also seen within the distal portion of the brachioradialis muscle. ? Posterior structures:? The conjoint triceps tendon from the long and lateral hea ds appears intact.? The medial head of the triceps tendon also appears normal, with direct muscle insertion onto the olecranon.? A small amount of olecranon bursal fluid is seen. ? Bone and cartilage:? No bone marrow contusions or fractures.? No osteochondral injuries.? ? ? IMPRESSION:? 1. Complete tearing of the distal biceps tendon near its insertion onto the radial tuberosity.? Possible small in situ tendon fragment adjacent to the radial tuberosity versus blood products with hypointense T2-weighted signal.? The bulk of the tendon is retracted approximately 6.5 cm from the radial tuberosity.? The retracted tendon stump appears somewhat irregular and elongated and may be stretched or tendinotic. ? 2. Low-grade strain of the brachioradialis muscle. ? 3. Soft tissue edema and hemorrhage surrounding the although, which is more prominent anteriorly.? Small olecranon bursal effusion.? Dictated by: Alejandro Hall M.D. on 11/06/2021 at 16:18 ? ? Approved by: Alejandro Hall M.D. on 11/06/2021 at 16:28 ? MDM Narrative Medical decision making narrative: 56-year-old male presents to the emergency department due to a left bicep tendon injury. Left elbow x-ray negative for fracture. Spoke with Dr. Smith, orthopedist, who recommended elbow MRI and outpatient follow-up. Elbow MRI showed complete tear of the left distal biceps tendon. Patient will be discharged with sling and instructions to call Dr. Smith's office on Tuesday for outpatient follow-up. Discharge Plan Departure Patient Disposition: Home Clinical Impression: Tear of distal tendon of biceps Activity Restrictions/Additional Instructions: Thank you for coming to the [facility] stay. The MRI shows a complete tear of your left distal biceps tendon. Please call Dr. Smith's, orthopedics,office on Tuesday morning for an appointment and for further evaluation and management. I hope you feel better soon. Prescriptions: New hydrocodone-acetaminophen 5-325 mg tablet 1 tab PO Q6H PRN (Reason: pain from distal biceps tendon tear) 5 Days Qty: 20 0RF No Action docusate sodium 100 mg capsule 100 mg PO BID Qty: 20 0RF metronidazole [Flagyl] 500 mg tablet 500 mg PO Q8H Qty: 30 0RF ciprofloxacin HCl [Cipro] 500 mg tablet 500 mg PO BID Qty: 20 0RF (DME) ResMed AirSense 10 Auto See Rx Instructions .ROUTE .MEDSUPPLY 0RF Rx Instructions: CPAP Min: 12 Max: 16 DME: [employer] aspirin [Adult Low Dose Aspirin] 81 mg tablet,delayed release (DR/EC) 81 mg PO DAILY 0RF lisinopril-hydrochlorothiazide 20-12.5 mg tablet 1 tab PO DAILY 0RF atorvastatin 10 mg tablet 30 mg PO DAILY 0RF Referrals: Radha Brito MD [Primary Care Provider] - Sunshine Smith MD [Physician] - (Patient presenting with complete distal biceps tendon tear, confirmed on MRI) <Lis Fritz DO - Last Filed: 11/06/21 20:50> Cosign ED Attending Cossheelaature Attestation: I was immediately available in the department for consultation. Documentation has been reviewed.
--- NOTE | 2021-11-06 13:50 | DI.RAD.S_ITS ---
PROCEDURE: XR ELBOW LT MIN 3V INDICATIONS: Left elbow TTP, possible distal bicep tendon tear TECHNIQUE: 3 views of the elbow were acquired. COMPARISON: None. FINDINGS: Bones: No fractures or dislocations. No suspicious bony lesions. Soft tissues: No elbow joint effusion. Medial soft tissue edema.. IMPRESSION: Medial soft tissue edema. Dictated by: Dane Kaur M.D. on 11/06/2021 at 14:49 Approved by: Dane Kaur M.D. on 11/06/2021 at 14:50
[2021-11-06 14:40] VITALS: BP 170/90; PULSE 80; RESP 18; O2SAT 98
--- NOTE | 2021-11-06 15:01 | PC.NURSE ---
pt reports he felt a popping sensation and heard the pop while lifting a TV at work
--- NOTE | 2021-11-06 15:27 | DI.MRI.S_ITS ---
PROCEDURE: MR ELBOW LT W CON INDICATIONS: Left distal biceps tendon injury TECHNIQUE: Noncontrast coronal proton density fast spin echo and T2 fast spin echo with fat saturation, axial and sagittal T1 spin echo and T2 fast spin echo with fat saturation through the elbow. COMPARISON: [facility], CR, XR ELBOW LT MIN 3V, 11/06/2021, 14:02. FINDINGS: Image quality: Excellent. Lateral structures: The lateral ulnar collateral ligament and radial collateral ligament both appear intact. The overlying common extensor tendon also appears normal. Medial structures: The ulnar collateral ligament appears intact. The overlying common flexor tendon appears normal. The ulnar nerve appears normal in size and signal within the cubital tunnel. Anterior structures: There is complete tearing of the distal biceps tendon. A 1.6 cm tendon fragment is seen adjacent to the radial tuberosity, although there appears to be high-grade or complete tearing at the distal insertion. There is approximately 6.5 cm retraction of the bulk of the tendon fibers from the radial tuberosity. The myotendinous junction is also significantly retracted. There is surrounding soft tissue edema and hemorrhage. The torn tendon stump appears irregular and possibly stretched. The distal brachialis tendon is intact. Edema is also seen within the distal portion of the brachioradialis muscle. Posterior structures: The conjoint triceps tendon from the long and lateral heads appears intact. The medial head of the triceps tendon also appears normal, with direct muscle insertion onto the olecranon. A small amount of olecranon bursal fluid is seen. Bone and cartilage: No bone marrow contusions or fractures. No osteochondral injuries. IMPRESSION: 1. Complete tearing of the distal biceps tendon near its insertion onto the radial tuberosity. Possible small in situ tendon fragment adjacent to the radial tuberosity versus blood products with hypointense T2-weighted signal. The bulk of the tendon is retracted approximately 6.5 cm from the radial tuberosity. The retracted tendon stump appears somewhat irregular and elongated and may be stretched or tendinotic. 2. Low-grade strain of the brachioradialis muscle. 3. Soft tissue edema and hemorrhage surrounding the although, which is more prominent anteriorly. Small olecranon bursal effusion. Dictated by: Alejandro Hall M.D. on 11/06/2021 at 16:18 Approved by: Alejandro Hall M.D. on 11/06/2021 at 16:28
[2021-11-06 15:32] VITALS: BP 167/96; PULSE 60; RESP 18; O2SAT 99
[2021-11-06 15:33] VITALS: BP 167/96; PULSE 60; RESP 18; O2SAT 98
[2021-11-06 17:21] VITALS: BP 155/78; PULSE 70; RESP 16; O2SAT 99
== END 2021-11-06 17:26 | disposition home or self-care (01) ==
PROVIDERS: Emergency Provider Physician Assistant Medical; PCP Student in an Organized Health Care Education/Training Program
DX: S46.212A Strain of muscle, fascia and tendon of other parts of biceps, left arm, initial encounter (principal); X50.0XXA Overexertion from strenuous movement or load, initial encounter; Y99.0 Civilian activity done for income or pay
CPT/HCPCS: 73080; 73221; 96372; 99283; 99284; J1885

== ENCOUNTER → 2022-03-03 08:00 | Outpatient (CLI) | payer OTHER, SELFPAY ==
--- NOTE | 2022-03-03 | DI.MRI.S_ITS ---
PROCEDURE: MR SHOULDER LT WO CON INDICATIONS: Strain of muscle and tendon of the rotator cuff TECHNIQUE: Noncontrast oblique coronal T2 fast spin echo with fat saturation, oblique sagittal T1 spin echo and T2 fast spin echo with fat saturation, axial T1 spin echo and T2 fast spin echo with fat saturation through the shoulder. COMPARISON: None. FINDINGS: Image quality: Excellent. Rotator cuff: Low-grade articular and bursal surface partial thickness tear involving distal supraspinatus is seen extending to musculotendinous junction. Distal infraspinatus tendinosis is noted. Distal subscapularis tendon is intact. No full-thickness rotator cuff tendon rupture. Sagittal images demonstrate very mild supraspinatus muscle atrophy. Bones and bursae: No bone marrow contusions or fractures. Moderate acromioclavicular joint osteoarthritic changes are seen with joint space narrowing, subchondral sclerosis and cyst formation and downward osteophyte formation depressing the musculotendinous junction of supraspinatus. Small amount of joint effusion and subacromial subdeltoid bursal fluid is seen. Capsule and soft tissues: There is subtle signal abnormality and contour irregularity involving superior anterior labrum at 12 to 1 o'clock position suggestive of superior anterior labral tear. The long head of the biceps tendinosis and low to moderate grade intrasubstance partial-thickness tear is seen.. The rotator interval appears normal, without fibrosis. The coracohumeral ligament is normal in thickness. IMPRESSION: 1. Low-grade articular and bursal surface partial thickness tear involving distal supraspinatus extending to musculotendinous junction. Distal infraspinatus tendinosis. No full-thickness rotator cuff tendon rupture. Very mild supraspinatus muscle atrophy. 2. Moderate acromioclavicular joint osteoarthritis. No fracture or dislocation. Small amount of joint effusion and subacromial subdeltoid bursal fluid. 3. Suggestion of subtle superior anterior labral tear at 12 to 1 o'clock position. 4. Moderate grade intrasubstance partial-thickness tear involving proximal intra-articular portion of long head of biceps. Dictated by: Андрей Julio M.D. on 03/03/2022 at 12:58 Approved by: Андрей Julio M.D. on 03/03/2022 at 13:36
== END ==
PROVIDERS: Family Provider Student in an Organized Health Care Education/Training Program; PCP Student in an Organized Health Care Education/Training Program; Referring Provider Orthopaedic Surgery; Visit Provider Orthopaedic Surgery
DX: S46.012A Strain of muscle(s) and tendon(s) of the rotator cuff of left shoulder, initial encounter (principal); M19.012 Primary osteoarthritis, left shoulder; X58.XXXA Exposure to other specified factors, initial encounter
CPT/HCPCS: 73221

== ENCOUNTER 2022-05-06 15:15 | Outpatient (RCR) | payer OTHER, SELFPAY ==
--- NOTE | 2021-12-29 16:56 | PT.OPPOC ---
Physical, Occupational & Speech Therapy At [facility] Current Diagnoses Pain in left arm (12/29/21) Weakness (12/29/21) Strain of muscle, fascia and tendon of other parts of biceps, left arm, initial encounter (12/29/21) Encounter for other specified surgical aftercare (12/29/21) Visit Care Team Role Provider Type Radha Brito MD Family Provider Physician Primary Care Provider Specialty: Family Practice Address: [address] [place] [address], [facility] [place], [address] Email: [email or web address] Alex Arellano MD Attending Provider Physician Referring Provider Specialty: Orthopedics Orthopedic Surgery Address: [address] [place] [address], [id number] Email: [email or web address] Plan Of Care PT-OP-T Assessment and Plan Start: 12/28/21 16:41 Freq: Status: Active Protocol: Document 12/29/21 08:57 SAK (Rec: 12/30/21 16:51 SAK [id number]) Physical Therapy Assessment Rehab Potential Rehabilitation Potential Good Evaluation Complexity Number of Personal Factors/Comorbidities 1-2 Number of Body Systems Impaired 3 Clinical Presentation at Evaluation Evolving Impairments Impairments Activity Tolerance,Edema,ROM, Strength Goals Four Impairment activity tolerance Impairment Quickdash disability index score 60% Short Term Goal (STG) decrease quickdash score to no greater than 40% as measure of improved left UE activity tolerance STG Duration 01/28/22 [facility] Goal (LTG) decrease quickdash score to no greater than 10% as measure of improved left UE activity tolerance and return to usual activities. LTG Duration 03/31/22 Three Impairment Limited ROM and strength left UE Short Term Goal (STG) Patient able to tolerate a progressive HEP following post -op protocol left UE for purposes of ROM and strengthening STG Duration 01/28/22 [facility] Goal (LTG) Patient will demonstrate left UE ROM and strength of at least 4+/5 all muscle groups to allow a return to prior level of function LTG Duration 03/31/22 Two Impairment edema left UE contributing to pain and limited motion [facility] Goal (LTG) Decrease edema left UE to within 1 cm measurements on right to allow normal motion all left UE joints and return to activity LTG Duration 03/31/22 One Impairment pain left UE Impairment as high as 7/10 Short Term Goal (STG) Decrease pain to no greater than 4/10 STG Duration 01/28/22 [facility] Goal (LTG) Decrease pain to no greater than 2/10 with all usual activities LTG Duration 03/31/22 Assessment Summary Assessment Patient presents to PT 4 weeks s/p distal biceps tendon repair after full tear sustained while lifting. He c /o moderate to severe pain and swelling in left UE, difficulty managing pain and not doing much exercise or ice as feels nothing helps. His worst pain is in his hand due to severity of swelling and in his shoulder due to attempts to lift, irritating long head of biceps. He has limitations of ROM in his left shoulder, elbow, and hand, and c/o 7/10 constant pain. No PT initially but due to the above symptoms, now sent to PT. His incisions seem to be healing well both anterior an posterior elbow. Evaluation performed, he was instructed in gentle hand and forearm ROM ex, and pendulum exercises and instructed to ice and elevate his left UE above his heart several times per day. Post-op protocol requested. Will benefit from physical therapy to decrease his swelling and pain, improve his ROM and strength in left UE and help him return to full, active use of his left UE. Discussed POC and patient is in agreement. Physical Therapy Plan Frequency and Duration Frequency of Treatment 2x/Week Duration of Treatment 12 weeks Plan of Care Start Date 12/29/21 Plan of Care End Date 03/31/22 Therapeutic Interventions Therapeutic Interventions Aquatic Therapy,Home Exercise Program,Manual Therapy,Patient /Caregiver Education,Self-Care /Home Management,Soft Tissue Mobilization,Taping, Therapeutic Activities, Therapeutic Exercises Modalities Cold Pack/Ice Massage,Electric Stimulation,Hot Packs, Infrared Therapy,Iontophoresis ,Ultrasound Next Visit Focus/Plan Next Note Type Treatment Note Next Visit Plan review HEP, do AAROM elbow ROM instead of active for better tolerance. Gentle retrograde massage/MLD for reduction of edema, decreased muscle tension and pain. Consider kinesiotape for edema reduction. End with IFES and ice left UE with UE elevated. Plan of Care Dates Plan of Care Start Date 12/29/21 Plan of Care End Date 03/31/22 Electronically Signed by: Jaci Waller, PT 12/30/21 8810 If you are in agreement with this Plan of Care, please return a signed and dated copy. I have reviewed this Plan of Care and certify that the skilled therapy services above are required to meet the patient?s needs. Physician Signature Date Printed Name and Credentials Clinical Instructor Signature Printed Name and Credentials
--- NOTE | 2021-12-29 16:56 | PT.OIE ---
Current Diagnoses Pain in left arm (12/29/21) Weakness (12/29/21) Strain of muscle, fascia and tendon of other parts of biceps, left arm, initial encounter (12/29/21) Encounter for other specified surgical aftercare (12/29/21) Past Medical History (Last Reviewed 07/23/21 @ 13:05 by Quoc Linares MD) Abdominal pain Benign essential HTN GERD (gastroesophageal reflux disease) Hyperlipidemia Idiopathic hypersomnia Obesity (BMI 30-39.9) Obstructive sleep apnea, adult Tobacco use disorder, continuous Umbilical hernia Vertigo Past Surgical History (Last Reviewed 07/23/21 @ 13:05 by Quoc Linares MD) History of colonoscopy with polypectomy S/P hernia repair S/P tendon repair Status post colonoscopy with polypectomy Visit Care Team Role Provider Type Radha Brito MD Family Provider Physician Primary Care Provider Specialty: Family Practice Address: [address] [place] [address], [address] Email: [email or web address] Alex Arellano MD Attending Provider Physician Referring Provider Specialty: Orthopedics Orthopedic Surgery Address: [address] [place] [address], [address] Email: [email or web address] Physical Therapy Initial Evaluation PT-OP-A Visit Information Start: 12/28/21 16:41 Freq: Status: Active Protocol: Document 12/29/21 08:57 SAK (Rec: 12/29/21 09:48 SAK [id number]) Out-Patient Physical Therapy Visit Information Visit Information Visit Type Initial Evaluation Visit Start Time 09:00 Visit Stop Time 09:55 Total Visit Minutes 55 Visit Number 1 Evaluation Information Evaluation Date 12/29/[address] Arellano note standard biceps tendon repair protocol PT-OP-B Current Condition Start: 12/28/21 16:41 Freq: Status: Active Protocol: Document 12/29/21 08:57 SAK (Rec: 12/29/21 09:48 SAK [id number]) Current Condition History of Current Condition Onset Date 11/23/21 Current Complaints left elbow pain, shoulder pain swelling left UE especially hand. History of Current Condition was picking up heavy flat screen TV, heard pop and felt like bicep broke and retracted into his arm. Had surgical repair 11/23/21; [facility] doctor told him a lot of scar tissue had to be cut out, was worried about tearing free so didn't want him to do PT initially. Follow-up appointment 2 weeks ago; [facility] doctor wanted him to do recovery without PT. advised bending and straightening his arm and rotating his arm. Swelling not going down, pain is incredible so asked for PT . Has been doing ROM at elbow as advised and some hand and finger ROM, occasionally trying to reach up overhead. Was told not to lift over a pound, no pushing or pulling. No icing recently because doesn't seem to be helping. 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 Functional Limitations- Recreation/ unable to use left UE Hobbies PT-OP-C Subjective Start: 12/28/21 16:41 Freq: Status: Active Protocol: Document 12/29/21 08:57 [facility] (Rec: 12/30/21 14:31 [facility] [id number]) Patient Questionnaires Quick Dash- Upper Extremity Quick Dash UE Score 60 OP-PT Pain Assessment Pain Assessment Grid Paper Pain Assessment Grid Completed Yes Location left UE Pain Location Details shoulder to fingers Intensity 7 Scale Used Numeric (0 - 10) Description Aching,Burning,Pressure,Tender ,Tightness,Throbbing,Tingling, With Movement Frequency Frequent Pain Aggravating Factors Position,ADL's,Activity, Exercise Pain Alleviating Factors None Home Pain Medication Use Pain Medications Used Yes Pain Behaviors Pain Behaviors Facial Grimacing,Guarding, Holding Area,Wincing PT-OP-H Neuro Start: 12/28/21 16:41 Freq: Status: Active Protocol: Document 12/29/21 08:57 [facility] (Rec: 12/30/21 16:51 [facility] [id number]) Sensation Evaluation Gross Sensation Gross Sensation Left UE Impaired Sensation Description Paresthesia PT-OP-J Posture/Palpation/Skin Start: 12/28/21 16:41 Freq: Status: Active Protocol: Document 12/29/21 08:57 [facility] (Rec: 12/30/21 16:51 [facility] [id number]) Posture Evaluation Position Sitting Shoulder Posture (L) Rounded Arm Posture (L) Internally Rotated Palpation Assessment Location One Palpation Location left UE Palpation Findings Edema,Muscle Guarding, Tenderness Palpation Details Patient very tender to touch throughout left UE with moderate swelling left forearm and hand. Incisions healing well; anterior elbow mostly closed with immature scar, posterior elbow scar still with steri strips but no signs or symptoms of infection. Skin Assessment Edema Assessment Left Arm Edema Appearance Discolored,Puffy,Taut Incisional Assessment Incision Appearance/Comments as above PT-OP-K Range of Motion Start: 12/28/21 16:41 Freq: Status: Active Protocol: Document 12/29/21 08:57 [facility] (Rec: 12/30/21 16:51 [facility] [id number]) Cervical Spine Range of Motion Cervical Spine Active Testing Position Sitting Comments WNL Shoulder Goniometric Range of Motion Shoulder Left Active Shoulder ROM WFL No Flexion 15 External Rotation at 0 degrees Abduction 10 Right Active Shoulder ROM WFL Yes Shoulder ROM Limitations Shoulder ROM Limitations Pain Elbow/Forearm Range of Motion Elbow/Forearm Left Active Elbow Flexion (degrees) 115 Elbow Extension (degrees) 8 Pronation (degrees) 90 Supination (degrees) 22 Right Active Elbow/Forearm ROM WFL Yes Elbow/Forearm ROM Limitations Elbow/Forearm ROM Limitations Soft Tissue Tightness,Pain, Swelling Wrist Goniometric Range of Motion Wrist Left Wrist ROM WFL No Flexion Active (degrees) 15 Flexion Passive (degrees) 10 Right Wrist ROM WFL Yes ROM Limitations Wrist Limitations of Range of Motion Swelling Finger Goniometric Range of Motion Finger alll Comments unable to make a full fist or touch fingers to thumb due to swelling left hand. Finger ROM Limitations Finger ROM Limitations Swelling PT-OP-M Strength Start: 12/28/21 16:41 Freq: Status: Active Protocol: Document 12/29/21 08:57 [facility] (Rec: 12/30/21 16:51 [facility] [id number]) Shoulder Strength Shoulder Manual Muscle Testing Left Comments not assessed due to recent surgery Right Flexion 5 Normal Extension 5 Normal External Rotation 5 Normal Internal Rotation 5 Normal Horizontal Abduction 5 Normal Horizontal Adduction 5 Normal Elbow/Forearm Strength Elbow and Forearm Manual Muscle Testing Left Comments not assessed due to recent surgery Right Flexion (C6) 5 Normal Extension (C7) 5 Normal Pronation 5 Normal Supination 5 Normal PT-OP-Q Treatments Start: 12/28/21 16:41 Freq: Status: Active Protocol: Document 12/29/21 08:57 [facility] (Rec: 12/30/21 16:51 [facility] [id number]) Self-Care/Home Management Treatment Education Patient Education Home Exercise Program,Pain Management Other Education issued written handout for HEP instructed to elevate left UE on pillows above heart, ice several times a day PT-OP-R Modalities Start: 12/28/21 16:41 Freq: Status: Active Protocol: Document 12/29/21 08:57 [facility] (Rec: 12/30/21 16:51 [facility] [id number]) Hot Pack/Cold Pack Treatment Cold Pack Location left shoulder, elbow, and hand Patient Position Hooklying Treatment Duration (minutes) 10 Patient Tolerance Good Comments left UE elevated with bolster and pillows PT-OP-T Assessment and Plan Start: 12/28/21 16:41 Freq: Status: Active Protocol: Document 12/29/21 08:57 [facility] (Rec: 12/30/21 16:51 [facility] [id number]) Physical Therapy Assessment Rehab Potential Rehabilitation Potential Good Evaluation Complexity Number of Personal Factors/Comorbidities 1-2 Number of Body Systems Impaired 3 Clinical Presentation at Evaluation Evolving Impairments Impairments Activity Tolerance,Edema,ROM, Strength Goals Four Impairment activity tolerance Impairment Quickdash disability index score 60% Short Term Goal (STG) decrease quickdash score to no greater than 40% as measure of improved left UE activity tolerance STG Duration 01/28/22 [facility] Goal (LTG) decrease quickdash score to no greater than 10% as measure of improved left UE activity tolerance and return to usual activities. LTG Duration 03/31/22 Three Impairment Limited ROM and strength left UE Short Term Goal (STG) Patient able to tolerate a progressive HEP following post -op protocol left UE for purposes of ROM and strengthening STG Duration 01/28/22 [facility] Goal (LTG) Patient will demonstrate left UE ROM and strength of at least 4+/5 all muscle groups to allow a return to prior level of function LTG Duration 03/31/22 Two Impairment edema left UE contributing to pain and limited motion [employer] Goal (LTG) Decrease edema left UE to within 1 cm measurements on right to allow normal motion all left UE joints and return to activity LTG Duration 03/31/22 One Impairment pain left UE Impairment as high as 7/10 Short Term Goal (STG) Decrease pain to no greater than 4/10 STG Duration 01/28/22 [facility] Goal (LTG) Decrease pain to no greater than 2/10 with all usual activities LTG Duration 03/31/22 Assessment Summary Assessment Patient presents to PT 4 weeks s/p distal biceps tendon repair after full tear sustained while lifting. He c /o moderate to severe pain and swelling in left UE, difficulty managing pain and not doing much exercise or ice as feels nothing helps. His worst pain is in his hand due to severity of swelling and in his shoulder due to attempts to lift, irritating long head of biceps. He has limitations of ROM in his left shoulder, elbow, and hand, and c/o 7/10 constant pain. No PT initially but due to the above symptoms, now sent to PT. His incisions seem to be healing well both anterior an posterior elbow. Evaluation performed, he was instructed in gentle hand and forearm ROM ex, and pendulum exercises and instructed to ice and elevate his left UE above his heart several times per day. Post-op protocol requested. Will benefit from physical therapy to decrease his swelling and pain, improve his ROM and strength in left UE and help him return to full, active use of his left UE. Discussed POC and patient is in agreement. Physical Therapy Plan Frequency and Duration Frequency of Treatment 2x/Week Duration of Treatment 12 weeks Plan of Care Start Date 12/29/21 Plan of Care End Date 03/31/22 Therapeutic Interventions Therapeutic Interventions Aquatic Therapy,Home Exercise Program,Manual Therapy,Patient /Caregiver Education,Self-Care /Home Management,Soft Tissue Mobilization,Taping, Therapeutic Activities, Therapeutic Exercises Modalities Cold Pack/Ice Massage,Electric Stimulation,Hot Packs, Infrared Therapy,Iontophoresis ,Ultrasound Next Visit Focus/Plan Next Note Type Treatment Note Next Visit Plan review HEP, do AAROM elbow ROM instead of active for better tolerance. Gentle retrograde massage/MLD for reduction of edema, decreased muscle tension and pain. Consider kinesiotape for edema reduction. End with IFES and ice left UE with UE elevated.
--- NOTE | 2021-12-31 17:23 | PT.OTN ---
Current Diagnoses Pain in left arm (12/31/21) Weakness (12/31/21) Strain of muscle, fascia and tendon of other parts of biceps, left arm, initial encounter (12/31/21) Encounter for other specified surgical aftercare (12/31/21) Physical Therapy Treatment Note PT-OP-A Visit Information Start: 12/28/21 16:41 Freq: Status: Active Protocol: Document 12/31/21 13:48 NBM (Rec: 12/31/21 17:23 NBM [id number]) Out-Patient Physical Therapy Visit Information Visit Information Visit Type Treatment Note Visit Start Time 13:46 Visit Stop Time 14:30 Total Visit Minutes 44 Visit Number 2 Number of MOTOR VEHICLES SUPERVISOR Visits 1 PT-OP-B Current Condition Start: 12/28/21 16:41 Freq: Status: Active Protocol: Document 12/29/21 08:57 SAK (Rec: 12/29/21 09:48 SAK [id number]) Current Condition History of Current Condition Onset Date 11/23/21 Current Complaints left elbow pain, shoulder pain swelling left UE especially hand. History of Current Condition was picking up heavy flat screen TV, heard pop and felt like bicep broke and retracted into his arm. Had surgical repair 11/23/21; [facility] doctor told him a lot of scar tissue had to be cut out, was worried about tearing free so didn't want him to do PT initially. Follow-up appointment 2 weeks ago; [facility] doctor wanted him to do recovery without PT. advised bending and straightening his arm and rotating his arm. Swelling not going down, pain is incredible so asked for PT . Has been doing ROM at elbow as advised and some hand and finger ROM, occasionally trying to reach up overhead. Was told not to lift over a pound, no pushing or pulling. No icing recently because doesn't seem to be helping. 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 His L hand is still swollen. He is doing is exercises and icing in a recliner to keep his hand elevated. He is happy to return to work light duty Tu01/05. He has not been able to sleep well and uses lots of pillows but awakes from pain when he rolls. PT-OP-H Neuro Start: 12/28/21 16:41 Freq: Status: Active Protocol: Document 12/29/21 08:57 SAK (Rec: 12/30/21 16:51 [facility] [id number]) Sensation Evaluation Gross Sensation Gross Sensation Left UE Impaired Sensation Description Paresthesia PT-OP-J Posture/Palpation/Skin Start: 12/28/21 16:41 Freq: Status: Active Protocol: Document 12/29/21 08:57 SAK (Rec: 12/30/21 16:51 SAK [id number]) Posture Evaluation Position Sitting Shoulder Posture (L) Rounded Arm Posture (L) Internally Rotated Palpation Assessment Location One Palpation Location left UE Palpation Findings Edema,Muscle Guarding, Tenderness Palpation Details Patient very tender to touch throughout left UE with moderate swelling left forearm and hand. Incisions healing well; anterior elbow mostly closed with immature scar, posterior elbow scar still with steri strips but no signs or symptoms of infection. Skin Assessment Edema Assessment Left Arm Edema Appearance Discolored,Puffy,Taut Incisional Assessment Incision Appearance/Comments as above PT-OP-K Range of Motion Start: 12/28/21 16:41 Freq: Status: Active Protocol: Document 12/29/21 08:57 SAK (Rec: 12/30/21 16:51 [facility] [id number]) Cervical Spine Range of Motion Cervical Spine Active Testing Position Sitting Comments WNL Shoulder Goniometric Range of Motion Shoulder Left Active Shoulder ROM WFL No Flexion 15 External Rotation at 0 degrees Abduction 10 Right Active Shoulder ROM WFL Yes Shoulder ROM Limitations Shoulder ROM Limitations Pain Elbow/Forearm Range of Motion Elbow/Forearm Left Active Elbow Flexion (degrees) 115 Elbow Extension (degrees) 8 Pronation (degrees) 90 Supination (degrees) 22 Right Active Elbow/Forearm ROM WFL Yes Elbow/Forearm ROM Limitations Elbow/Forearm ROM Limitations Soft Tissue Tightness,Pain, Swelling Wrist Goniometric Range of Motion Wrist Left Wrist ROM WFL No Flexion Active (degrees) 15 Flexion Passive (degrees) 10 Right Wrist ROM WFL Yes ROM Limitations Wrist Limitations of Range of Motion Swelling Finger Goniometric Range of Motion Finger alll Comments unable to make a full fist or touch fingers to thumb due to swelling left hand. Finger ROM Limitations Finger ROM Limitations Swelling PT-OP-M Strength Start: 12/28/21 16:41 Freq: Status: Active Protocol: Document 12/29/21 08:57 SAK (Rec: 12/30/21 16:51 SAK [id number]) Shoulder Strength Shoulder Manual Muscle Testing Left Comments not assessed due to recent surgery Right Flexion 5 Normal Extension 5 Normal External Rotation 5 Normal Internal Rotation 5 Normal Horizontal Abduction 5 Normal Horizontal Adduction 5 Normal Elbow/Forearm Strength Elbow and Forearm Manual Muscle Testing Left Comments not assessed due to recent surgery Right Flexion (C6) 5 Normal Extension (C7) 5 Normal Pronation 5 Normal Supination 5 Normal PT-OP-Q Treatments Start: 12/28/21 16:41 Freq: Status: Active Protocol: Document 12/31/21 13:48 NB (Rec: 12/31/21 17:23 NBM [id number]) Therapeutic Exercises Sitting Exercises Table slide Sitting Exercise Name AAROM Side left Equipment Used pillow case Reps/Minutes 1 x 10 rep w/ 5SH Comments VC for slower pace and 5 SH Hand Sitting Exercise Name Finger Abduction to Closed Fist Side left Reps/Minutes 1 x 10 rep w/ 5 SH Wrist Sitting Exercise Name Flexion/Extension Side left Reps/Minutes 1 x 10 w/ 1 SH hold Comments elbow stabilized on mat table, VC for slower pace Scapular retraction Sitting Exercise Name Shoulder Blade Squeeze Reps/Minutes 1 x 10 rep w/ 5SH Comments Verbal/tactile cues for slower pace, hold full 5, no UT Standing Exercises Pendulum Standing Exercise Name Fwd/Back Side left Reps/Minutes 60 Comments vc and visual cues to relax shoulder. Improved w/ visual cue. Manual Therapy Treatment Soft Tissue Mobilization Shoulder Body Location L Long head Biceps, pec, UT Mobilization Type Cross-Friction,Myofascial Release,Rolling Intensity/Depth Superficial Body Position Hooklying Comments w/ bolster, L arm supported and L hand elevated. Pecs were tender to palpation and was stopped d/t pain. Pt reported significant pain relief w/ manual therapy to biceps. PT-OP-R Modalities Start: 12/28/21 16:41 Freq: Status: Active Protocol: Document 12/31/21 13:48 NBM (Rec: 12/31/21 17:23 NB [id number]) Hot Pack/Cold Pack Treatment Cold Pack Location left shoulder Patient Position Hooklying Treatment Duration (minutes) 10 Patient Tolerance Good Comments left UE elevated with bolster and pillows PT-OP-T Assessment and Plan Start: 12/28/21 16:41 Freq: Status: Active Protocol: Document 12/31/21 13:48 NBM (Rec: 12/31/21 17:23 [facility] [id number]) Physical Therapy Assessment Goals Four Impairment activity tolerance Impairment Quickdash disability index score 60% Short Term Goal (STG) decrease quickdash score to no greater than 40% as measure of improved left UE activity tolerance STG Duration 01/28/22 Shelter Goal (LTG) decrease quickdash score to no greater than 10% as measure of improved left UE activity tolerance and return to usual activities. LTG Duration 03/31/22 Three Impairment Limited ROM and strength left UE Short Term Goal (STG) Patient able to tolerate a progressive HEP following post -op protocol left UE for purposes of ROM and strengthening STG Duration 01/28/22 Anthropologist Physical Goal (LTG) Patient will demonstrate left UE ROM and strength of at least 4+/5 all muscle groups to allow a return to prior level of function LTG Duration 03/31/22 Two Impairment edema left UE contributing to pain and limited motion Anthropologist Physical Goal (LTG) Decrease edema left UE to within 1 cm measurements on right to allow normal motion all left UE joints and return to activity LTG Duration 03/31/22 One Impairment pain left UE Impairment as high as 7/10 Short Term Goal (STG) Decrease pain to no greater than 4/10 STG Duration 01/28/22 Anthropologist Physical Goal (LTG) Decrease pain to no greater than 2/10 with all usual activities LTG Duration 03/31/22 Assessment Summary Assessment Gino demonstrates improved performance of home exercises with verbal and tactile cues. Manual therapy to his L pec was difficult to tolerate and stopped due to pain. He reported significant pain relief w/ manual therapy to his L biceps. Physical Therapy Plan Next Visit Focus/Plan Next Note Type Treatment Note Next Visit Plan review HEP, do AAROM elbow ROM instead of active for better tolerance. Gentle retrograde massage/MLD for reduction of edema, decreased muscle tension and pain. Consider kinesiotape for edema reduction. End with IFES and ice left UE with UE elevated.
--- NOTE | 2022-01-06 08:15 | PT.OTN ---
Current Diagnoses Pain in left arm (01/06/22) Weakness (01/06/22) Strain of muscle, fascia and tendon of other parts of biceps, left arm, initial encounter (01/06/22) Encounter for other specified surgical aftercare (01/06/22) Physical Therapy Treatment Note PT-OP-A Visit Information Start: 12/28/21 16:41 Freq: Status: Active Protocol: Document 01/06/22 09:02 SAK (Rec: 01/06/22 09:59 [facility] [id number]) Out-Patient Physical Therapy Visit Information Visit Information Visit Type Treatment Note Visit Start Time 09:02 Visit Number 3 Number of MIGRANT LEADER Visits 0 Evaluation Information Evaluation Date 12/29/[address] Arellano note standard biceps tendon repair protocol PT-OP-B Current Condition Start: 12/28/21 16:41 Freq: Status: Active Protocol: Document 12/29/21 08:57 SAK (Rec: 12/29/21 09:48 SAK [id number]) Current Condition History of Current Condition Onset Date 11/23/21 Current Complaints left elbow pain, shoulder pain swelling left UE especially hand. History of Current Condition was picking up heavy flat screen TV, heard pop and felt like bicep broke and retracted into his arm. Had surgical repair 11/23/21; [facility] doctor told him a lot of scar tissue had to be cut out, was worried about tearing free so didn't want him to do PT initially. Follow-up appointment 2 weeks ago; [facility] doctor wanted him to do recovery without PT. advised bending and straightening his arm and rotating his arm. Swelling not going down, pain is incredible so asked for PT . Has been doing ROM at elbow as advised and some hand and finger ROM, occasionally trying to reach up overhead. Was told not to lift over a pound, no pushing or pulling. No icing recently because doesn't seem to be helping. 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 Hasn 't obtained glove for compression. Less pain after manual treatment last session. PT-OP-H Neuro Start: 12/28/21 16:41 Freq: Status: Active Protocol: Document 12/29/21 08:57 [facility] (Rec: 12/30/21 16:51 [facility] [id number]) Sensation Evaluation Gross Sensation Gross Sensation Left UE Impaired Sensation Description Paresthesia PT-OP-J Posture/Palpation/Skin Start: 12/28/21 16:41 Freq: Status: Active Protocol: Document 12/29/21 08:57 SAK (Rec: 12/30/21 16:51 [facility] [id number]) Posture Evaluation Position Sitting Shoulder Posture (L) Rounded Arm Posture (L) Internally Rotated Palpation Assessment Location One Palpation Location left UE Palpation Findings Edema,Muscle Guarding, Tenderness Palpation Details Patient very tender to touch throughout left UE with moderate swelling left forearm and hand. Incisions healing well; anterior elbow mostly closed with immature scar, posterior elbow scar still with steri strips but no signs or symptoms of infection. Skin Assessment Edema Assessment Left Arm Edema Appearance Discolored,Puffy,Taut Incisional Assessment Incision Appearance/Comments as above PT-OP-K Range of Motion Start: 12/28/21 16:41 Freq: Status: Active Protocol: Document 12/29/21 08:57 [facility] (Rec: 12/30/21 16:51 [facility] [id number]) Cervical Spine Range of Motion Cervical Spine Active Testing Position Sitting Comments WNL Shoulder Goniometric Range of Motion Shoulder Left Active Shoulder ROM WFL No Flexion 15 External Rotation at 0 degrees Abduction 10 Right Active Shoulder ROM WFL Yes Shoulder ROM Limitations Shoulder ROM Limitations Pain Elbow/Forearm Range of Motion Elbow/Forearm Left Active Elbow Flexion (degrees) 115 Elbow Extension (degrees) 8 Pronation (degrees) 90 Supination (degrees) 22 Right Active Elbow/Forearm ROM WFL Yes Elbow/Forearm ROM Limitations Elbow/Forearm ROM Limitations Soft Tissue Tightness,Pain, Swelling Wrist Goniometric Range of Motion Wrist Left Wrist ROM WFL No Flexion Active (degrees) 15 Flexion Passive (degrees) 10 Right Wrist ROM WFL Yes ROM Limitations Wrist Limitations of Range of Motion Swelling Finger Goniometric Range of Motion Finger alll Comments unable to make a full fist or touch fingers to thumb due to swelling left hand. Finger ROM Limitations Finger ROM Limitations Swelling PT-OP-M Strength Start: 12/28/21 16:41 Freq: Status: Active Protocol: Document 12/29/21 08:57 [facility] (Rec: 12/30/21 16:51 [facility] [id number]) Shoulder Strength Shoulder Manual Muscle Testing Left Comments not assessed due to recent surgery Right Flexion 5 Normal Extension 5 Normal External Rotation 5 Normal Internal Rotation 5 Normal Horizontal Abduction 5 Normal Horizontal Adduction 5 Normal Elbow/Forearm Strength Elbow and Forearm Manual Muscle Testing Left Comments not assessed due to recent surgery Right Flexion (C6) 5 Normal Extension (C7) 5 Normal Pronation 5 Normal Supination 5 Normal PT-OP-Q Treatments Start: 12/28/21 16:41 Freq: Status: Active Protocol: Document 01/06/22 09:02 [facility] (Rec: 01/11/22 08:07 [facility] [id number]) Therapeutic Exercises Supine Exercises shoulder flex Supine Exercise Name wand Reps/Minutes 10x Comments 90 to flex as tolerated, 155 shoulder PROM Supine Exercise Name elbow extended Reps/Minutes 10x Comments all planes Sitting Exercises ebow flex Sitting Exercise Name AAROM Reps/Minutes 10x elbow extension Sitting Exercise Name active with terminal stretch Reps/Minutes 10x5 Pron/sup Sitting Exercise Name AROM Reps/Minutes 10x with terminal stretch x 5 Table slide Sitting Exercise Name AAROM shoulder Side left Equipment Used pillow case Reps/Minutes 1 x 10 rep w/ 5SH Comments VC for slower pace and 5 SH Hand Sitting Exercise Name Finger Abduction to Closed Fist Side left Reps/Minutes 1 x 10 rep w/ 5 SH Wrist Sitting Exercise Name Flexion/Extension Side left Reps/Minutes 1 x 10 w/ 1 SH hold Comments elbow stabilized on mat table, VC for slower pace Scapular retraction Sitting Exercise Name Shoulder Blade Squeeze Reps/Minutes 1 x 10 rep w/ 5SH Comments Verbal/tactile cues for slower pace, hold full 5, no UT Standing Exercises Pendulum Standing Exercise Name Fwd/Back Side left Reps/Minutes 10x ea Comments vc and visual cues to relax shoulder and elbow Manual Therapy Treatment Soft Tissue Mobilization MLD left LUE Body Location left UE Mobilization Type Manual Lymphatic Drainage Intensity/Depth light Body Position Hooklying Comments bolster and pillows supporting left UE Shoulder Body Location L Long head Biceps, pec, UT, scar Mobilization Type Cross-Friction,Myofascial Release,Rolling Intensity/Depth gentle Body Position Hooklying Comments bolster supporting left LUE Other Other Manual Treatments Applied Tubigrip size E with thumbhole to left hand wrist to mid forearm; instructed to wear during the day. Self-Care/Home Management Treatment Education Patient Education Home Exercise Program,Pain Management Other Education shown options for compression glove online, try tubigrip to see if effective then encouraged obtain glove if not adequate or swelling continues to be an issue. PT-OP-R Modalities Start: 12/28/21 16:41 Freq: Status: Active Protocol: Document 01/06/22 09:02 [facility] (Rec: 01/11/22 08:07 [facility] [id number]) Hot Pack/Cold Pack Treatment Cold Pack Location left shoulder, elbow Patient Position Hooklying Treatment Duration (minutes) 10 Patient Tolerance Good Comments left UE elevated with bolster and pillows PT-OP-T Assessment and Plan Start: 12/28/21 16:41 Freq: Status: Active Protocol: Document 01/06/22 09:02 [facility] (Rec: 01/11/22 08:15 [facility] [id number]) Physical Therapy Assessment Impairments Impairments Activity Tolerance,Edema,ROM, Strength Goals Four Impairment activity tolerance Impairment Quickdash disability index score 60% Short Term Goal (STG) decrease quickdash score to no greater than 40% as measure of improved left UE activity tolerance STG Duration 01/28/22 Newspaper Copy Editor Goal (LTG) decrease quickdash score to no greater than 10% as measure of improved left UE activity tolerance and return to usual activities. LTG Duration 03/31/22 Three Impairment Limited ROM and strength left UE Short Term Goal (STG) Patient able to tolerate a progressive HEP following post -op protocol left UE for purposes of ROM and strengthening STG Duration 01/28/22 [facility] Goal (LTG) Patient will demonstrate left UE ROM and strength of at least 4+/5 all muscle groups to allow a return to prior level of function LTG Duration 03/31/22 Two Impairment edema left UE contributing to pain and limited motion [facility] Goal (LTG) Decrease edema left UE to within 1 cm measurements on right to allow normal motion all left UE joints and return to activity LTG Duration 03/31/22 One Impairment pain left UE Impairment as high as 7/10 Short Term Goal (STG) Decrease pain to no greater than 4/10 STG Duration 01/28/22 Newspaper Copy Editor Goal (LTG) Decrease pain to no greater than 2/10 with all usual activities LTG Duration 03/31/22 Assessment Summary Assessment Patient had noted some improvement in hand swelling but worsened with return to work and continues to be significant issue. After MLD, size E Tubigrip applied to left hand for compression and patient was shown options for compression glove online. Importance of continued HEP encouraged. Per protocol patient can now do active elbow flex and extension with terminal stretch, same with pron and supination. Continue shoulder ROM. Patient progress has been limited due to not wearing sling or having any education on precautions prior to initiating PT and left LUE swelling. HE demonstrates good understanding of HEP and need to decrease edema. Physical Therapy Plan Frequency and Duration Frequency of Treatment 2x/Week Duration of Treatment 12 weeks Plan of Care Start Date 12/29/21 Plan of Care End Date 03/31/22 Therapeutic Interventions Therapeutic Interventions Aquatic Therapy,Home Exercise Program,Manual Therapy,Patient /Caregiver Education,Self-Care /Home Management,Soft Tissue Mobilization,Taping, Therapeutic Activities, Therapeutic Exercises Modalities Cold Pack/Ice Massage,Electric Stimulation,Hot Packs, Infrared Therapy,Iontophoresis ,Ultrasound Next Visit Focus/Plan Next Note Type Treatment Note Next Visit Plan Continue PT per protocol as tolerated, assess response to Tubigrip and assess need for different size and further discuss compression glove. Manual therapy for edema reduction, decreased muscle tension and pain, and improved scar mobility.
--- NOTE | 2022-01-12 08:20 | PT.OTN ---
Current Diagnoses Pain in left arm (01/12/22) Weakness (01/12/22) Strain of muscle, fascia and tendon of other parts of biceps, left arm, initial encounter (01/12/22) Encounter for other specified surgical aftercare (01/12/22) Physical Therapy Treatment Note PT-OP-A Visit Information Start: 12/28/21 16:41 Freq: Status: Active Protocol: Document 01/12/22 07:33 SP (Rec: 01/12/22 08:49 SP [id number]) Out-Patient Physical Therapy Visit Information Visit Information Visit Type Treatment Note Visit Note Surgery 11/23/21; patient 8 weeks post-op Visit Start Time 07:33 Visit Stop Time 08:20 Total Visit Minutes 47 Visit Number 4 Number of BELL CAPTAIN Visits 1 Evaluation Information Evaluation Date 12/29/[address] Arellano note standard biceps tendon repair protocol PT-OP-B Current Condition Start: 12/28/21 16:41 Freq: Status: Active Protocol: Document 12/29/21 08:57 SAK (Rec: 12/29/21 09:48 SAK [id number]) Current Condition History of Current Condition Onset Date 11/23/21 Current Complaints left elbow pain, shoulder pain swelling left UE especially hand. History of Current Condition was picking up heavy flat screen TV, heard pop and felt like bicep broke and retracted into his arm. Had surgical repair 11/23/21; [facility] told him a lot of scar tissue had to be cut out, was worried about tearing free so didn't want him to do PT initially. Follow-up appointment 2 weeks ago; [facility] doctor wanted him to do recovery without PT. advised bending and straightening his arm and rotating his arm. Swelling not going down, pain is incredible so asked for PT . Has been doing ROM at elbow as advised and some hand and finger ROM, occasionally trying to reach up overhead. Was told not to lift over a pound, no pushing or pulling. No icing recently because doesn't seem to be helping. 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 He states didnt get the ice pack end last tx wants to get today from [employer]. He had to remove the compression stocking due to became painful and started hurting his L shld, felt better after removed. He noted less swelling today when woke up. Pt stated purchased the compression glove but couldn't get it on, reported won't be functional. Pt reports sleeping better only woke up 2 -3 times briefly at night, not having to support L UE with pillow, usually LUE supported in lap driving to/from work from . PT-OP-H Neuro Start: 12/28/21 16:41 Freq: Status: Active Protocol: Document 12/29/21 08:57 SAK (Rec: 12/30/21 16:51 [facility] [id number]) Sensation Evaluation Gross Sensation Gross Sensation Left UE Impaired Sensation Description Paresthesia PT-OP-J Posture/Palpation/Skin Start: 12/28/21 16:41 Freq: Status: Active Protocol: Document 12/29/21 08:57 SAK (Rec: 12/30/21 16:51 [facility] [id number]) Posture Evaluation Position Sitting Shoulder Posture (L) Rounded Arm Posture (L) Internally Rotated Palpation Assessment Location One Palpation Location left UE Palpation Findings Edema,Muscle Guarding, Tenderness Palpation Details Patient very tender to touch throughout left UE with moderate swelling left forearm and hand. Incisions healing well; anterior elbow mostly closed with immature scar, posterior elbow scar still with steri strips but no signs or symptoms of infection. Skin Assessment Edema Assessment Left Arm Edema Appearance Discolored,Puffy,Taut Incisional Assessment Incision Appearance/Comments as above PT-OP-K Range of Motion Start: 12/28/21 16:41 Freq: Status: Active Protocol: Document 12/29/21 08:57 SAK (Rec: 12/30/21 16:51 [facility] [id number]) Cervical Spine Range of Motion Cervical Spine Active Testing Position Sitting Comments WNL Shoulder Goniometric Range of Motion Shoulder Left Active Shoulder ROM WFL No Flexion 15 External Rotation at 0 degrees Abduction 10 Right Active Shoulder ROM WFL Yes Shoulder ROM Limitations Shoulder ROM Limitations Pain Elbow/Forearm Range of Motion Elbow/Forearm Left Active Elbow Flexion (degrees) 115 Elbow Extension (degrees) 8 Pronation (degrees) 90 Supination (degrees) 22 Right Active Elbow/Forearm ROM WFL Yes Elbow/Forearm ROM Limitations Elbow/Forearm ROM Limitations Soft Tissue Tightness,Pain, Swelling Wrist Goniometric Range of Motion Wrist Left Wrist ROM WFL No Flexion Active (degrees) 15 Flexion Passive (degrees) 10 Right Wrist ROM WFL Yes ROM Limitations Wrist Limitations of Range of Motion Swelling Finger Goniometric Range of Motion Finger alll Comments unable to make a full fist or touch fingers to thumb due to swelling left hand. Finger ROM Limitations Finger ROM Limitations Swelling PT-OP-M Strength Start: 12/28/21 16:41 Freq: Status: Active Protocol: Document 12/29/21 08:57 SAK (Rec: 12/30/21 16:51 SAK [id number]) Shoulder Strength Shoulder Manual Muscle Testing Left Comments not assessed due to recent surgery Right Flexion 5 Normal Extension 5 Normal External Rotation 5 Normal Internal Rotation 5 Normal Horizontal Abduction 5 Normal Horizontal Adduction 5 Normal Elbow/Forearm Strength Elbow and Forearm Manual Muscle Testing Left Comments not assessed due to recent surgery Right Flexion (C6) 5 Normal Extension (C7) 5 Normal Pronation 5 Normal Supination 5 Normal PT-OP-Q Treatments Start: 12/28/21 16:41 Freq: Status: Active Protocol: Document 01/12/22 07:33 SP (Rec: 01/12/22 08:49 SP [id number]) Therapeutic Exercises Supine Exercises elbow AROM Supine Exercise Name PROM> AROM: flex, ext, pron, supination Side left Equipment Used elbow flexed and extended as tolerated Reps/Minutes x10 Comments good feedback response shoulder PROM Supine Exercise Name elbow extended Side left Reps/Minutes 10x Comments all planes Sitting Exercises theraputty Sitting Exercise Name added to HEP Side left Resistance Yellow Reps/Minutes x10, 3-5 xday Comments all purpose clerk squeeze ebow flex Sitting Exercise Name AROM Reps/Minutes 10x elbow extension Sitting Exercise Name active with terminal stretch Reps/Minutes 10x5 Pron/sup Sitting Exercise Name AROM Reps/Minutes 10x with terminal stretch x 5 Hand Sitting Exercise Name Finger Abduction to Closed Fist Side left Reps/Minutes 1 x 10 rep w/ 5 SH Wrist Sitting Exercise Name Flexion/Extension/UD/RD Side left Reps/Minutes 1 x 10 w/ 1 SH hold Comments elbow stabilized on mat table, VC for slower pace Scapular retraction Sitting Exercise Name Shoulder Blade Squeeze Reps/Minutes 1 x 10 rep w/ 5SH Comments Verbal/tactile cues for slower pace, hold full 5, no UT Standing Exercises UT, LS stretching Standing Exercise Name added to HEP: seated or standing Side left Reps/Minutes 30 x2 Comments good feedback response self STMs Standing Exercise Name posterior scap, pec Side left Equipment Used racquetball in sock at wall Reps/Minutes 1 min Comments good feedback response Pendulum Standing Exercise Name Fwd/Back- discussed but not performed today Side left Reps/Minutes 10x ea Comments cues to relax shoulder and elbow Manual Therapy Treatment Soft Tissue Mobilization MLD left LUE Body Location left UE: shld start proximal work distal retrograde Mobilization Type Manual Lymphatic Drainage Intensity/Depth light Body Position Hooklying Comments bolster and pillows supporting left UE- improved hand swelling. Shoulder Body Location L Long head Biceps, pec, UT, scar Mobilization Type Cross-Friction,Myofascial Release,Rolling Intensity/Depth gentle Body Position Hooklying Comments bolster supporting left LUE Joint Mobilizations L GH jt Direction sup/ inf/ A/P Grade II Body Position Hooklying Reps/Duration 1 min Comments good feedback response, discussed continue pendulum. Self-Care/Home Management Treatment Education Patient Education Home Exercise Program,Pain Management Other Education Provided F tubigrip to see if effective, encouraged adequate for swelling continues to be an issue. Good feedback response fit: LUE IP>1 below elbow with 1st MCP exposed. Provided G as well but didn't provide compression on hand, F better fit and good response. BELL [employer]TAIN provided 2 disposable ice pack for use at home/work, theraputty to assist with swelling control. PT-OP-R Modalities Start: 12/28/21 16:41 Freq: Status: Active Protocol: Document 01/06/22 09:02 [facility] (Rec: 01/11/22 08:07 [facility] [id number]) Hot Pack/Cold Pack Treatment Cold Pack Location left shoulder, elbow Patient Position Hooklying Treatment Duration (minutes) 10 Patient Tolerance Good Comments left UE elevated with bolster and pillows PT-OP-T Assessment and Plan Start: 12/28/21 16:41 Freq: Status: Active Protocol: Document 01/12/22 07:33 SP (Rec: 01/12/22 08:49 SP [id number]) Physical Therapy Assessment Goals Four Impairment activity tolerance Impairment Quickdash disability index score 60% Short Term Goal (STG) decrease quickdash score to no greater than 40% as measure of improved left UE activity tolerance STG Duration 01/28/22 Long-Term Goal (LTG) decrease quickdash score to no greater than 10% as measure of improved left UE activity tolerance and return to usual activities. LTG Duration 03/31/22 Three Impairment Limited ROM and strength left UE Short Term Goal (STG) Patient able to tolerate a progressive HEP following post -op protocol left UE for purposes of ROM and strengthening STG Duration 01/28/22 Medical Scribe Goal (LTG) Patient will demonstrate left UE ROM and strength of at least 4+/5 all muscle groups to allow a return to prior level of function LTG Duration 03/31/22 Two Impairment edema left UE contributing to pain and limited motion Medical Scribe Goal (LTG) Decrease edema left UE to within 1 cm measurements on right to allow normal motion all left UE joints and return to activity LTG Duration 03/31/22 One Impairment pain left UE Impairment as high as 7/10 Short Term Goal (STG) Decrease pain to no greater than 4/10 STG Duration 01/28/22 Long-Term Goal (LTG) Decrease pain to no greater than 2/10 with all usual activities LTG Duration 03/31/22 Assessment Summary Assessment Pt good response to ther ex, provided HOs for stretching, putty all purpose clerk swelling control. Pt able to almost extend arm at side end tx. Good understanding HEP incorporate and CP for upright swelling control and ROM. Understood stretching application to support shld and neck decreased tension and elevating LUE on table at work , use of CP for comfort. Pt reported L shld felt better. Physical Therapy Plan Frequency and Duration Frequency of Treatment 2x/Week Duration of Treatment 12 weeks Plan of Care Start Date 12/29/21 Plan of Care End Date 03/31/22 Therapeutic Interventions Therapeutic Interventions Aquatic Therapy,Home Exercise Program,Manual Therapy,Patient /Caregiver Education,Self-Care /Home Management,Soft Tissue Mobilization,Taping, Therapeutic Activities, Therapeutic Exercises Modalities Cold Pack/Ice Massage,Electric Stimulation,Hot Packs, Infrared Therapy,Iontophoresis ,Ultrasound Next Visit Focus/Plan Next Note Type Treatment Note Next Visit Plan Continue PT per protocol as tolerated, assess response to Tubigrip F. Manual therapy and CP for edema reduction, decreased muscle tension and pain, and improved scar mobility.
--- NOTE | 2022-01-14 11:18 | PT.OTN ---
Current Diagnoses Pain in left arm (01/14/22) Weakness (01/14/22) Strain of muscle, fascia and tendon of other parts of biceps, left arm, initial encounter (01/14/22) Encounter for other specified surgical aftercare (01/14/22) Physical Therapy Treatment Note PT-OP-A Visit Information Start: 12/28/21 16:41 Freq: Status: Active Protocol: Document 01/14/22 09:28 MA (Rec: 01/14/22 11:18 MA [id number]) Out-Patient Physical Therapy Visit Information Visit Information Visit Type Treatment Note Visit Note Surgery 11/23/21; patient 8 weeks post-op Visit Start Time 09:45 Visit Stop Time 10:35 Total Visit Minutes 50 Visit Number 5 Number of RESIDENTIAL FEE APPRAISER Visits [address] Arellano note standard biceps tendon repair protocol PT-OP-B Current Condition Start: 12/28/21 16:41 Freq: Status: Active Protocol: Document 12/29/21 08:57 SAK (Rec: 12/29/21 09:48 SAK [id number]) Current Condition History of Current Condition Onset Date 11/23/21 Current Complaints left elbow pain, shoulder pain swelling left UE especially hand. History of Current Condition was picking up heavy flat screen TV, heard pop and felt like bicep broke and retracted into his arm. Had surgical repair 11/23/21; [facility] told him a lot of scar tissue had to be cut out, was worried about tearing free so didn't want him to do PT initially. Follow-up appointment 2 weeks ago; [facility] doctor wanted him to do recovery without PT. advised bending and straightening his arm and rotating his arm. Swelling not going down, pain is incredible so asked for PT . Has been doing ROM at elbow as advised and some hand and finger ROM, occasionally trying to reach up overhead. Was told not to lift over a pound, no pushing or pulling. No icing recently because doesn't seem to be helping. 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 He thinks the F tubigrip worked better than the G which was too loose. PT-OP-H Neuro Start: 12/28/21 16:41 Freq: Status: Active Protocol: Document 12/29/21 08:57 SAK (Rec: 12/30/21 16:51 SAK [id number]) Sensation Evaluation Gross Sensation Gross Sensation Left UE Impaired Sensation Description Paresthesia PT-OP-J Posture/Palpation/Skin Start: 12/28/21 16:41 Freq: Status: Active Protocol: Document 12/29/21 08:57 SAK (Rec: 12/30/21 16:51 SAK [id number]) Posture Evaluation Position Sitting Shoulder Posture (L) Rounded Arm Posture (L) Internally Rotated Palpation Assessment Location One Palpation Location left UE Palpation Findings Edema,Muscle Guarding, Tenderness Palpation Details Patient very tender to touch throughout left UE with moderate swelling left forearm and hand. Incisions healing well; anterior elbow mostly closed with immature scar, posterior elbow scar still with steri strips but no signs or symptoms of infection. Skin Assessment Edema Assessment Left Arm Edema Appearance Discolored,Puffy,Taut Incisional Assessment Incision Appearance/Comments as above PT-OP-K Range of Motion Start: 12/28/21 16:41 Freq: Status: Active Protocol: Document 12/29/21 08:57 SAK (Rec: 12/30/21 16:51 SAK [id number]) Cervical Spine Range of Motion Cervical Spine Active Testing Position Sitting Comments WNL Shoulder Goniometric Range of Motion Shoulder Left Active Shoulder ROM WFL No Flexion 15 External Rotation at 0 degrees Abduction 10 Right Active Shoulder ROM WFL Yes Shoulder ROM Limitations Shoulder ROM Limitations Pain Elbow/Forearm Range of Motion Elbow/Forearm Left Active Elbow Flexion (degrees) 115 Elbow Extension (degrees) 8 Pronation (degrees) 90 Supination (degrees) 22 Right Active Elbow/Forearm ROM WFL Yes Elbow/Forearm ROM Limitations Elbow/Forearm ROM Limitations Soft Tissue Tightness,Pain, Swelling Wrist Goniometric Range of Motion Wrist Left Wrist ROM WFL No Flexion Active (degrees) 15 Flexion Passive (degrees) 10 Right Wrist ROM WFL Yes ROM Limitations Wrist Limitations of Range of Motion Swelling Finger Goniometric Range of Motion Finger alll Comments unable to make a full fist or touch fingers to thumb due to swelling left hand. Finger ROM Limitations Finger ROM Limitations Swelling PT-OP-M Strength Start: 12/28/21 16:41 Freq: Status: Active Protocol: Document 12/29/21 08:57 SAK (Rec: 12/30/21 16:51 SAK [id number]) Shoulder Strength Shoulder Manual Muscle Testing Left Comments not assessed due to recent surgery Right Flexion 5 Normal Extension 5 Normal External Rotation 5 Normal Internal Rotation 5 Normal Horizontal Abduction 5 Normal Horizontal Adduction 5 Normal Elbow/Forearm Strength Elbow and Forearm Manual Muscle Testing Left Comments not assessed due to recent surgery Right Flexion (C6) 5 Normal Extension (C7) 5 Normal Pronation 5 Normal Supination 5 Normal PT-OP-Q Treatments Start: 12/28/21 16:41 Freq: Status: Active Protocol: Document 01/14/22 09:28 MA (Rec: 01/14/22 11:18 MA [id number]) Therapeutic Exercises Supine Exercises elbow AROM Supine Exercise Name PROM> AROM: flex, ext, pron, supination Side left Equipment Used elbow flexed and extended as tolerated Reps/Minutes x10 Comments good feedback response shoulder PROM Supine Exercise Name elbow extended Side left Reps/Minutes 10x Comments all planes Sitting Exercises ebow flex Sitting Exercise Name AROM Reps/Minutes 10x Table slide Sitting Exercise Name AAROM shoulder Side left Equipment Used pillow case Reps/Minutes 1 x 10 rep w/ 5SH Comments VC for slower pace and 5 SH Hand Sitting Exercise Name Finger Abduction to Closed Fist Side left Reps/Minutes 1 x 10 rep w/ 5 SH Wrist Sitting Exercise Name Flexion/Extension/UD/RD Side left Reps/Minutes 1 x 10 w/ 1 SH hold Comments elbow stabilized on mat table, VC for slower pace Manual Therapy Treatment Soft Tissue Mobilization MLD left LUE Body Location left UE: shld start proximal work distal retrograde Mobilization Type Manual Lymphatic Drainage Intensity/Depth light Body Position Hooklying Comments bolster and pillows supporting left UE- improved hand swelling. Shoulder Body Location L Long head Biceps, pec, UT, scar Mobilization Type Cross-Friction,Myofascial Release,Rolling Intensity/Depth gentle Body Position Hooklying Comments bolster supporting left LUE PT-OP-R Modalities Start: 12/28/21 16:41 Freq: Status: Active Protocol: Document 01/14/22 09:28 MA (Rec: 01/14/22 11:18 MA [id number]) Hot Pack/Cold Pack Treatment Cold Pack Location left shoulder, elbow Patient Position Sitting Treatment Duration (minutes) 10 Patient Tolerance Good Comments left UE elevated with bolster and pillows PT-OP-T Assessment and Plan Start: 12/28/21 16:41 Freq: Status: Active Protocol: Document 01/14/22 09:28 MA (Rec: 01/14/22 11:18 MA [id number]) Physical Therapy Assessment Goals Four Impairment activity tolerance Impairment Quickdash disability index score 60% Short Term Goal (STG) decrease quickdash score to no greater than 40% as measure of improved left UE activity tolerance STG Duration 01/28/22 Detention Goal (LTG) decrease quickdash score to no greater than 10% as measure of improved left UE activity tolerance and return to usual activities. LTG Duration 03/31/22 Three Impairment Limited ROM and strength left UE Short Term Goal (STG) Patient able to tolerate a progressive HEP following post -op protocol left UE for purposes of ROM and strengthening STG Duration 01/28/22 Industrial Paramedic Goal (LTG) Patient will demonstrate left UE ROM and strength of at least 4+/5 all muscle groups to allow a return to prior level of function LTG Duration 03/31/22 Two Impairment edema left UE contributing to pain and limited motion Detention Goal (LTG) Decrease edema left UE to within 1 cm measurements on right to allow normal motion all left UE joints and return to activity LTG Duration 03/31/22 One Impairment pain left UE Impairment as high as 7/10 Short Term Goal (STG) Decrease pain to no greater than 4/10 STG Duration 01/28/22 Industrial Paramedic Goal (LTG) Decrease pain to no greater than 2/10 with all usual activities LTG Duration 03/31/22 Assessment Summary Assessment Pt reports doing HEP throughout day at home and work. He feels he has less swelling in the morning so therapy is easier as he can more easily move his wrist and fingers. Discouraged pt from using heat on shoulder at home to prevent increased swelling but to continue with using ice. Reviewed new HEP with pt struggling to extend single finger without lifting multiple fingers from table together. Pt plans to get a raquet ball for self-STM today when he is out shopping. Physical Therapy Plan Frequency and Duration Frequency of Treatment 2x/Week Duration of Treatment 12 weeks Plan of Care Start Date 12/29/21 Plan of Care End Date 03/31/22 Therapeutic Interventions Therapeutic Interventions Aquatic Therapy,Home Exercise Program,Manual Therapy,Patient /Caregiver Education,Self-Care /Home Management,Soft Tissue Mobilization,Taping, Therapeutic Activities, Therapeutic Exercises Modalities Cold Pack/Ice Massage,Electric Stimulation,Hot Packs, Infrared Therapy,Iontophoresis ,Ultrasound Next Visit Focus/Plan Next Note Type Treatment Note Next Visit Plan Continue PT per protocol as tolerated, assess response to Tubigrip F. Manual therapy and CP for edema reduction, decreased muscle tension and pain, and improved scar mobility.
--- NOTE | 2022-01-19 09:07 | PT.OTN ---
Current Diagnoses Pain in left arm (01/19/22) Weakness (01/19/22) Strain of muscle, fascia and tendon of other parts of biceps, left arm, initial encounter (01/19/22) Encounter for other specified surgical aftercare (01/19/22) Physical Therapy Treatment Note PT-OP-A Visit Information Start: 12/28/21 16:41 Freq: Status: Active Protocol: Document 01/19/22 08:12 NBM (Rec: 01/19/22 09:07 NBM [id number]) Out-Patient Physical Therapy Visit Information Visit Information Visit Type Treatment Note Visit Note Surgery 11/23/21; patient 8 weeks post-op Visit Start Time 08:15 Visit Stop Time 09:00 Total Visit Minutes 45 Visit Number 6 Number of LOCOMOTIVE OILER Visits 3 PT-OP-B Current Condition Start: 12/28/21 16:41 Freq: Status: Active Protocol: Document 12/29/21 08:57 SAK (Rec: 12/29/21 09:48 SAK [id number]) Current Condition History of Current Condition Onset Date 11/23/21 Current Complaints left elbow pain, shoulder pain swelling left UE especially hand. History of Current Condition was picking up heavy flat screen TV, heard pop and felt like bicep broke and retracted into his arm. Had surgical repair 11/23/21; [facility] doctor told him a lot of scar tissue had to be cut out, was worried about tearing free so didn't want him to do PT initially. Follow-up appointment 2 weeks ago; [facility] doctor wanted him to do recovery without PT. advised bending and straightening his arm and rotating his arm. Swelling not going down, pain is incredible so asked for PT . Has been doing ROM at elbow as advised and some hand and finger ROM, occasionally trying to reach up overhead. Was told not to lift over a pound, no pushing or pulling. No icing recently because doesn't seem to be helping. 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 He has been using a tennis ball in sock for self- massage and for squeezing instead of putty. His left thumb bothers him the most in his hand. PT-OP-H Neuro Start: 12/28/21 16:41 Freq: Status: Active Protocol: Document 12/29/21 08:57 SAK (Rec: 12/30/21 16:51 SAK [id number]) Sensation Evaluation Gross Sensation Gross Sensation Left UE Impaired Sensation Description Paresthesia PT-OP-J Posture/Palpation/Skin Start: 12/28/21 16:41 Freq: Status: Active Protocol: Document 12/29/21 08:57 SAK (Rec: 12/30/21 16:51 SAK [id number]) Posture Evaluation Position Sitting Shoulder Posture (L) Rounded Arm Posture (L) Internally Rotated Palpation Assessment Location One Palpation Location left UE Palpation Findings Edema,Muscle Guarding, Tenderness Palpation Details Patient very tender to touch throughout left UE with moderate swelling left forearm and hand. Incisions healing well; anterior elbow mostly closed with immature scar, posterior elbow scar still with steri strips but no signs or symptoms of infection. Skin Assessment Edema Assessment Left Arm Edema Appearance Discolored,Puffy,Taut Incisional Assessment Incision Appearance/Comments as above PT-OP-K Range of Motion Start: 12/28/21 16:41 Freq: Status: Active Protocol: Document 12/29/21 08:57 SAK (Rec: 12/30/21 16:51 [facility] [id number]) Cervical Spine Range of Motion Cervical Spine Active Testing Position Sitting Comments WNL Shoulder Goniometric Range of Motion Shoulder Left Active Shoulder ROM WFL No Flexion 15 External Rotation at 0 degrees Abduction 10 Right Active Shoulder ROM WFL Yes Shoulder ROM Limitations Shoulder ROM Limitations Pain Elbow/Forearm Range of Motion Elbow/Forearm Left Active Elbow Flexion (degrees) 115 Elbow Extension (degrees) 8 Pronation (degrees) 90 Supination (degrees) 22 Right Active Elbow/Forearm ROM WFL Yes Elbow/Forearm ROM Limitations Elbow/Forearm ROM Limitations Soft Tissue Tightness,Pain, Swelling Wrist Goniometric Range of Motion Wrist Left Wrist ROM WFL No Flexion Active (degrees) 15 Flexion Passive (degrees) 10 Right Wrist ROM WFL Yes ROM Limitations Wrist Limitations of Range of Motion Swelling Finger Goniometric Range of Motion Finger alll Comments unable to make a full fist or touch fingers to thumb due to swelling left hand. Finger ROM Limitations Finger ROM Limitations Swelling PT-OP-M Strength Start: 12/28/21 16:41 Freq: Status: Active Protocol: Document 12/29/21 08:57 [facility] (Rec: 12/30/21 16:51 SAK [id number]) Shoulder Strength Shoulder Manual Muscle Testing Left Comments not assessed due to recent surgery Right Flexion 5 Normal Extension 5 Normal External Rotation 5 Normal Internal Rotation 5 Normal Horizontal Abduction 5 Normal Horizontal Adduction 5 Normal Elbow/Forearm Strength Elbow and Forearm Manual Muscle Testing Left Comments not assessed due to recent surgery Right Flexion (C6) 5 Normal Extension (C7) 5 Normal Pronation 5 Normal Supination 5 Normal PT-OP-Q Treatments Start: 12/28/21 16:41 Freq: Status: Active Protocol: Document 01/19/22 08:12 [facility] (Rec: 01/19/22 09:07 [facility] [id number]) Therapeutic Exercises Supine Exercises elbow AROM Supine Exercise Name PROM> AROM: flex, ext, pron, supination Side left Equipment Used elbow flexed and extended as tolerated Reps/Minutes x10 Comments good feedback response Sitting Exercises Pron/sup Sitting Exercise Name AROM Reps/Minutes 10x with terminal stretch x 5 Hand Sitting Exercise Name Finger Abduction to Closed Fist Side left Reps/Minutes 1 x 10 rep w/ 5 SH Wrist Sitting Exercise Name Flexion/Extension/UD/RD Side left Reps/Minutes 1 x 10 w/ 1 SH hold Comments elbow stabilized on mat table, VC for slower pace Scapular retraction Sitting Exercise Name Shoulder Blade Squeeze Reps/Minutes 1 x 10 rep w/ 5SH Comments Verbal/tactile cues for slower pace, hold full 5, no UT PT-OP-R Modalities Start: 12/28/21 16:41 Freq: Status: Active Protocol: Document 01/19/22 08:12 NB (Rec: 01/19/22 09:07 [facility] [id number]) Hot Pack/Cold Pack Treatment Cold Pack Location left shoulder, elbow Patient Position Supine Treatment Duration (minutes) 10 Patient Tolerance Good Comments left UE elevated with bolster and pillows PT-OP-T Assessment and Plan Start: 12/28/21 16:41 Freq: Status: Active Protocol: Document 01/19/22 08:12 [facility] (Rec: 01/19/22 09:07 [facility] [id number]) Physical Therapy Assessment Goals Four Impairment activity tolerance Impairment Quickdash disability index score 60% Short Term Goal (STG) decrease quickdash score to no greater than 40% as measure of improved left UE activity tolerance STG Duration 01/28/22 Glue Line Operator Goal (LTG) decrease quickdash score to no greater than 10% as measure of improved left UE activity tolerance and return to usual activities. LTG Duration 03/31/22 Three Impairment Limited ROM and strength left UE Short Term Goal (STG) Patient able to tolerate a progressive HEP following post -op protocol left UE for purposes of ROM and strengthening STG Duration 01/28/22 Alf Goal (LTG) Patient will demonstrate left UE ROM and strength of at least 4+/5 all muscle groups to allow a return to prior level of function LTG Duration 03/31/22 Two Impairment edema left UE contributing to pain and limited motion Alf Goal (LTG) Decrease edema left UE to within 1 cm measurements on right to allow normal motion all left UE joints and return to activity LTG Duration 03/31/22 One Impairment pain left UE Impairment as high as 7/10 Short Term Goal (STG) Decrease pain to no greater than 4/10 STG Duration 01/28/22 Glue Line Operator Goal (LTG) Decrease pain to no greater than 2/10 with all usual activities LTG Duration 03/31/22 Assessment Summary Assessment Pt reports doing HEP at home and work. He has decreased swelling overall and more ROM in shoulder, wrists and fingers but continues to be restricted by pain and swelling. He requires many cues for upper trapezius overactivation which exacerbates his pain. Physical Therapy Plan Next Visit Focus/Plan Next Note Type Treatment Note Next Visit Plan Continue PT per protocol as tolerated. Manual therapy and CP for edema reduction, decreased muscle tension and pain, and improved scar mobility.
--- NOTE | 2022-01-25 09:30 | PT.OTN ---
Current Diagnoses Pain in left arm (01/25/22) Weakness (01/25/22) Strain of muscle, fascia and tendon of other parts of biceps, left arm, initial encounter (01/25/22) Encounter for other specified surgical aftercare (01/25/22) Physical Therapy Treatment Note PT-OP-A Visit Information Start: 12/28/21 16:41 Freq: Status: Active Protocol: Document 01/25/22 08:12 NBM (Rec: 01/25/22 09:29 NBM [id number]) Out-Patient Physical Therapy Visit Information Visit Information Visit Type Treatment Note Visit Note Surgery 11/23/21; patient 8 weeks post-op Visit Start Time 08:15 Visit Stop Time 09:05 Total Visit Minutes 50 Visit Number 7 Number of AUTOMOTIVE PARTS COUNTER ASSOCIATE 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 Arellano note standard biceps tendon repair protocol PT-OP-B Current Condition Start: 12/28/21 16:41 Freq: Status: Active Protocol: Document 12/29/21 08:57 SAK (Rec: 12/29/21 09:48 SAK [id number]) Current Condition History of Current Condition Onset Date 11/23/21 Current Complaints left elbow pain, shoulder pain swelling left UE especially hand. History of Current Condition was picking up heavy flat screen TV, heard pop and felt like bicep broke and retracted into his arm. Had surgical repair 11/23/21; [facility] doctor told him a lot of scar tissue had to be cut out, was worried about tearing free so didn't want him to do PT initially. Follow-up appointment 2 weeks ago; [facility] doctor wanted him to do recovery without PT. advised bending and straightening his arm and rotating his arm. Swelling not going down, pain is incredible so asked for PT . Has been doing ROM at elbow as advised and some hand and finger ROM, occasionally trying to reach up overhead. Was told not to lift over a pound, no pushing or pulling. No icing recently because doesn't seem to be helping. 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 Yesterday was the first time he was able to get the glove on. He awakes with pain in L shoulder 8/10 which comes down to 0/10 with ice. Sudden movements cause pain in L shoulder. Pain is 0/10 at the moment. PT-OP-H Neuro Start: 12/28/21 16:41 Freq: Status: Active Protocol: Document 12/29/21 08:57 [facility] (Rec: 12/30/21 16:51 [facility] [id number]) Sensation Evaluation Gross Sensation Gross Sensation Left UE Impaired Sensation Description Paresthesia PT-OP-J Posture/Palpation/Skin Start: 12/28/21 16:41 Freq: Status: Active Protocol: Document 12/29/21 08:57 SAK (Rec: 12/30/21 16:51 [facility] [id number]) Posture Evaluation Position Sitting Shoulder Posture (L) Rounded Arm Posture (L) Internally Rotated Palpation Assessment Location One Palpation Location left UE Palpation Findings Edema,Muscle Guarding, Tenderness Palpation Details Patient very tender to touch throughout left UE with moderate swelling left forearm and hand. Incisions healing well; anterior elbow mostly closed with immature scar, posterior elbow scar still with steri strips but no signs or symptoms of infection. Skin Assessment Edema Assessment Left Arm Edema Appearance Discolored,Puffy,Taut Incisional Assessment Incision Appearance/Comments as above PT-OP-K Range of Motion Start: 12/28/21 16:41 Freq: Status: Active Protocol: Document 12/29/21 08:57 SAK (Rec: 12/30/21 16:51 [facility] [id number]) Cervical Spine Range of Motion Cervical Spine Active Testing Position Sitting Comments WNL Shoulder Goniometric Range of Motion Shoulder Left Active Shoulder ROM WFL No Flexion 15 External Rotation at 0 degrees Abduction 10 Right Active Shoulder ROM WFL Yes Shoulder ROM Limitations Shoulder ROM Limitations Pain Elbow/Forearm Range of Motion Elbow/Forearm Left Active Elbow Flexion (degrees) 115 Elbow Extension (degrees) 8 Pronation (degrees) 90 Supination (degrees) 22 Right Active Elbow/Forearm ROM WFL Yes Elbow/Forearm ROM Limitations Elbow/Forearm ROM Limitations Soft Tissue Tightness,Pain, Swelling Wrist Goniometric Range of Motion Wrist Left Wrist ROM WFL No Flexion Active (degrees) 15 Flexion Passive (degrees) 10 Right Wrist ROM WFL Yes ROM Limitations Wrist Limitations of Range of Motion Swelling Finger Goniometric Range of Motion Finger alll Comments unable to make a full fist or touch fingers to thumb due to swelling left hand. Finger ROM Limitations Finger ROM Limitations Swelling PT-OP-M Strength Start: 12/28/21 16:41 Freq: Status: Active Protocol: Document 12/29/21 08:57 SAK (Rec: 12/30/21 16:51 SAK [id number]) Shoulder Strength Shoulder Manual Muscle Testing Left Comments not assessed due to recent surgery Right Flexion 5 Normal Extension 5 Normal External Rotation 5 Normal Internal Rotation 5 Normal Horizontal Abduction 5 Normal Horizontal Adduction 5 Normal Elbow/Forearm Strength Elbow and Forearm Manual Muscle Testing Left Comments not assessed due to recent surgery Right Flexion (C6) 5 Normal Extension (C7) 5 Normal Pronation 5 Normal Supination 5 Normal PT-OP-Q Treatments Start: 12/28/21 16:41 Freq: Status: Active Protocol: Document 01/25/22 08:12 NB (Rec: 01/25/22 09:29 NB [id number]) Therapeutic Exercises Supine Exercises shoulder AROM Reps/Minutes 1 x 8 Comments R hand assisting L shouler flexion at wrist - stopped d/t pain in L ant em shoulder blade squeeze Supine Exercise Name scapular retraction Reps/Minutes 1 x 10 Comments during PROM elbow AROM Supine Exercise Name PROM> AROM: flex, ext, pron, supination Side left Equipment Used elbow flexed and extended as tolerated Reps/Minutes x10 Comments good feedback response shoulder PROM Supine Exercise Name elbow extended Side left Reps/Minutes 10x Comments all planes Sitting Exercises Pron/sup Sitting Exercise Name AROM Reps/Minutes 10x with terminal stretch x 5 Hand Sitting Exercise Name Finger Abduction to Closed Fist Side left Reps/Minutes 1 x 10 rep Wrist Sitting Exercise Name Flexion/Extension/UD/RD Side left Reps/Minutes 1 x 10 w/ 1 SH hold Comments elbow stabilized on mat table Manual Therapy Treatment Soft Tissue Mobilization Retrograde STM Body Location L hand - added to HEP Mobilization Type Other Intensity/Depth Superficial Body Position Hooklying Comments Followed with fist to open and fingers together/apart exercises. performed in HL, pt demonstrated in sitting. Shoulder Body Location L Long head Biceps, pec, UT, scar Mobilization Type Cross-Friction,Myofascial Release,Rolling Intensity/Depth gentle Body Position Hooklying Comments bolster supporting left LUE Joint Mobilizations L GH jt Direction sup/ inf/ A/P Grade II Body Position Hooklying Reps/Duration 1 min Comments good feedback response, discussed continue pendulum. Self-Care/Home Management Treatment Education Patient Education Home Exercise Program,Pain Management Other Education Educated pt to perform retrograde self-massage - added to HEP. PT-OP-R Modalities Start: 12/28/21 16:41 Freq: Status: Active Protocol: Document 01/25/22 08:12 NBM (Rec: 01/25/22 09:29 [facility] [id number]) Hot Pack/Cold Pack Treatment Cold Pack Location left shoulder, elbow Patient Position Supine Treatment Duration (minutes) 10 Patient Tolerance Good Comments left UE elevated with bolster and pillows PT-OP-T Assessment and Plan Start: 12/28/21 16:41 Freq: Status: Active Protocol: Document 01/25/22 08:12 NBM (Rec: 01/25/22 09:29 [facility] [id number]) Physical Therapy Assessment Goals Four Impairment activity tolerance Impairment Quickdash disability index score 60% Short Term Goal (STG) decrease quickdash score to no greater than 40% as measure of improved left UE activity tolerance STG Duration 01/28/22 Geospatial Technologist Goal (LTG) decrease quickdash score to no greater than 10% as measure of improved left UE activity tolerance and return to usual activities. LTG Duration 03/31/22 Three Impairment Limited ROM and strength left UE Short Term Goal (STG) Patient able to tolerate a progressive HEP following post -op protocol left UE for purposes of ROM and strengthening STG Duration 01/28/22 [facility] Goal (LTG) Patient will demonstrate left UE ROM and strength of at least 4+/5 all muscle groups to allow a return to prior level of function LTG Duration 03/31/22 Two Impairment edema left UE contributing to pain and limited motion Geospatial Technologist Goal (LTG) Decrease edema left UE to within 1 cm measurements on right to allow normal motion all left UE joints and return to activity LTG Duration 03/31/22 One Impairment pain left UE Impairment as high as 7/10 Short Term Goal (STG) Decrease pain to no greater than 4/10 STG Duration 01/28/22 [facility] Goal (LTG) Decrease pain to no greater than 2/10 with all usual activities LTG Duration 03/31/22 Assessment Summary Assessment Jesus shows decrease in L hand swelling today as demonstrated with ability to don compression glove and observed decrease in swelling. His ROM continues to be limited by pain and L shoulder AAROM was discontinued to do pain. Pt continues to require cueing to address over activation of Upper trapezius and posture. He is HEP compliant and is able to demonstrate appropriate retrograde self- massage of L hand. Physical Therapy Plan Next Visit Focus/Plan Next Note Type Treatment Note Next Visit Plan Assess retrograde self-massage. POC: Continue PT per protocol as tolerated. Manual therapy and CP for edema reduction, decreased muscle tension and pain, and improved scar mobility.
--- NOTE | 2022-02-08 14:23 | PT.OTN ---
Current Diagnoses Pain in left arm (02/08/22) Weakness (02/08/22) Strain of muscle, fascia and tendon of other parts of biceps, left arm, initial encounter (02/08/22) Encounter for other specified surgical aftercare (02/08/22) Physical Therapy Treatment Note PT-OP-A Visit Information Start: 12/28/21 16:41 Freq: Status: Active Protocol: Document 02/08/22 14:05 [facility] (Rec: 02/08/22 14:22 [facility] [id number]) Out-Patient Physical Therapy Visit Information Visit Information Visit Type Treatment Note Visit Note Surgery 11/23/21; patient 11 weeks post-op Visit Start Time 08:15 Visit Stop Time 09:05 Total Visit Minutes 50 Visit Number 7 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 Arellano note standard biceps tendon repair protocol PT-OP-B Current Condition Start: 12/28/21 16:41 Freq: Status: Active Protocol: Document 12/29/21 08:57 [facility] (Rec: 12/29/21 09:48 [facility] [id number]) Current Condition History of Current Condition Onset Date 11/23/21 Current Complaints left elbow pain, shoulder pain swelling left UE especially hand. History of Current Condition was picking up heavy flat screen TV, heard pop and felt like bicep broke and retracted into his arm. [facility] lot [facility] tissue had to be cut out, was worried about tearing free so didn't want him to do PT initially. Follow-up appointment 2 weeks ago[facility] without PT. advised bending and straightening his arm and rotating his arm. Swelling not going down, pain is incredible so asked for PT . Has been doing ROM at elbow as advised and some hand and finger ROM, occasionally trying to reach up overhead. Was told not to lift over a pound, no pushing or pulling. No icing recently because doesn't seem to be helping. 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 Trying to do finger and hand ROM as much as possible. Hasn't iced recently because tired of it. Continues with high pain level, especially upper end of biceps. PT-OP-H Neuro Start: 12/28/21 16:41 Freq: Status: Active Protocol: Document 12/29/21 08:57 [facility] (Rec: 12/30/21 16:51 [facility] [id number]) Sensation Evaluation Gross Sensation Gross Sensation Left UE Impaired Sensation Description Paresthesia PT-OP-J Posture/Palpation/Skin Start: 12/28/21 16:41 Freq: Status: Active Protocol: Document 12/29/21 08:57 [facility] (Rec: 12/30/21 16:51 [facility] [id number]) Posture Evaluation Position Sitting Shoulder Posture (L) Rounded Arm Posture (L) Internally Rotated Palpation Assessment Location One Palpation Location left UE Palpation Findings Edema,Muscle Guarding, Tenderness Palpation Details Patient very tender to touch throughout left UE with moderate swelling left forearm and hand. Incisions healing well; anterior elbow mostly closed with immature scar, posterior elbow scar still with steri strips but no signs or symptoms of infection. Skin Assessment Edema Assessment Left Arm Edema Appearance Discolored,Puffy,Taut Incisional Assessment Incision Appearance/Comments as above PT-OP-K Range of Motion Start: 12/28/21 16:41 Freq: Status: Active Protocol: Document 12/29/21 08:57 [facility] (Rec: 12/30/21 16:51 [facility] [id number]) Cervical Spine Range of Motion Cervical Spine Active Testing Position Sitting Comments WNL Shoulder Goniometric Range of Motion Shoulder Left Active Shoulder ROM WFL No Flexion 15 External Rotation at 0 degrees Abduction 10 Right Active Shoulder ROM WFL Yes Shoulder ROM Limitations Shoulder ROM Limitations Pain Elbow/Forearm Range of Motion Elbow/Forearm Left Active Elbow Flexion (degrees) 115 Elbow Extension (degrees) 8 Pronation (degrees) 90 Supination (degrees) 22 Right Active Elbow/Forearm ROM WFL Yes Elbow/Forearm ROM Limitations Elbow/Forearm ROM Limitations Soft Tissue Tightness,Pain, Swelling Wrist Goniometric Range of Motion Wrist Left Wrist ROM WFL No Flexion Active (degrees) 15 Flexion Passive (degrees) 10 Right Wrist ROM WFL Yes ROM Limitations Wrist Limitations of Range of Motion Swelling Finger Goniometric Range of Motion Finger alll Comments unable to make a full fist or touch fingers to thumb due to swelling left hand. Finger ROM Limitations Finger ROM Limitations Swelling PT-OP-M Strength Start: 12/28/21 16:41 Freq: Status: Active Protocol: Document 12/29/21 08:57 [facility] (Rec: 12/30/21 16:51 [facility] [id number]) Shoulder Strength Shoulder Manual Muscle Testing Left Comments not assessed due to recent surgery Right Flexion 5 Normal Extension 5 Normal External Rotation 5 Normal Internal Rotation 5 Normal Horizontal Abduction 5 Normal Horizontal Adduction 5 Normal Elbow/Forearm Strength Elbow and Forearm Manual Muscle Testing Left Comments not assessed due to recent surgery Right Flexion (C6) 5 Normal Extension (C7) 5 Normal Pronation 5 Normal Supination 5 Normal PT-OP-Q Treatments Start: 12/28/21 16:41 Freq: Status: Active Protocol: Document 02/08/22 14:05 [facility] (Rec: 02/08/22 14:22 [facility] [id number]) Therapeutic Exercises Supine Exercises elbow AROM Supine Exercise Name PROM> AROM: flex, ext, pron, supination Side left Equipment Used elbow flexed and extended as tolerated Reps/Minutes x10 Comments good feedback response shoulder PROM Supine Exercise Name elbow extended Side left Reps/Minutes 10x Comments all planes Sitting Exercises Pron/sup Sitting Exercise Name AROM Reps/Minutes 10x with terminal stretch x 5 Table slide Sitting Exercise Name HEP Wrist Sitting Exercise Name Flexion/Extension/UD/RD Side left Reps/Minutes 1 x 10 w/ 1 SH hold Comments elbow stabilized on mat table Standing Exercises Pendulum Standing Exercise Name Fwd/Back- discussed but not performed today Side left Reps/Minutes 10x ea Comments cues to relax shoulder and elbow Manual Therapy Treatment Soft Tissue Mobilization Shoulder Body Location L Long head Biceps, pec, UT, scar Mobilization Type Cross-Friction,Myofascial Release,Rolling Intensity/Depth gentle Body Position Hooklying Comments bolster supporting left LUE Joint Mobilizations L GH jt Direction post, inf Grade II Body Position Hooklying Reps/Duration 3 min Comments no inc pain Taping left hand/forearm Type of Tape Kinesio Tape Comments fan strip extending into dorsal 2-4th digit to nail bed from base at cubital fossa . Y strip with base distal biceps with 50% stretch to ant GH Self-Care/Home Management Treatment Education Patient Education Home Exercise Program,Pain Management Other Education tape can stay on up to 5 days if well-tolerated, continue hand ROM, retrograde massage as tolerated. PT-OP-R Modalities Start: 12/28/21 16:41 Freq: Status: Active Protocol: Document 02/08/22 14:05 [facility] (Rec: 02/08/22 14:22 [facility] [id number]) Electric Stimulation Electric Stimulation Interferential Current (IFC) Body Location left shoulder Duration (Minutes) 15 Intensity 11 Target/Sweep Sweep Patient Position Hooklying Combined With Heat/Cold Hot Pack Comments beginning of treatment. Hot Pack/Cold Pack Treatment Cold Pack Location left shoulder, elbow Patient Position Supine Treatment Duration (minutes) 10 Patient Tolerance Good Comments left UE elevated with bolster and pillows. after treatment PT-OP-T Assessment and Plan Start: 12/28/21 16:41 Freq: Status: Active Protocol: Document 02/08/22 14:05 [facility] (Rec: 02/08/22 14:22 [facility] [id number]) Physical Therapy Assessment Goals Four Impairment activity tolerance Impairment Quickdash disability index score 60% Short Term Goal (STG) decrease quickdash score to no greater than 40% as measure of improved left UE activity tolerance STG Duration 01/28/22 Chief Specialist Leed Goal (LTG) decrease quickdash score to no greater than 10% as measure of improved left UE activity tolerance and return to usual activities. LTG Duration 03/31/22 Three Impairment Limited ROM and strength left UE Short Term Goal (STG) Patient able to tolerate a progressive HEP following post -op protocol left UE for purposes of ROM and strengthening STG Duration 01/28/22 Chief Specialist Leed Goal (LTG) Patient will demonstrate left UE ROM and strength of at least 4+/5 all muscle groups to allow a return to prior level of function LTG Duration 03/31/22 Two Impairment edema left UE contributing to pain and limited motion Chief Specialist Leed Goal (LTG) Decrease edema left UE to within 1 cm measurements on right to allow normal motion all left UE joints and return to activity LTG Duration 03/31/22 One Impairment pain left UE Impairment as high as 7/10 Short Term Goal (STG) Decrease pain to no greater than 4/10 STG Duration 01/28/22 Custodial Goal (LTG) Decrease pain to no greater than 2/10 with all usual activities LTG Duration 03/31/22 Assessment Summary Assessment Patient continues to have high pain level but hasn't been icing recently due to tired of it. His compression glove fell apart so not wearing and demonstrating minimal use of left UE; frequent continued AROM encouraged. Trial kinesiotape done today for edema management in hand and pain management shoulder and elbow. Started session with IFES for promotion of muscle relaxation and pain management . Patient has full AAROM left elbow flex and extension, full pronation, supination to 57 deg. Shoulder flex AAROM limited to 90 deg, ER 34. Physical Therapy Plan Next Visit Focus/Plan Next Note Type Treatment Note Next Visit Plan Assess response to IFES, kinesiotape. Continue PT per protocol as tolerated working toward normal ROM and strength at left shoulder and elbow. Isometric exercises elbow and shoulder as tolerated.
--- NOTE | 2022-02-11 10:10 | PT.OTN ---
Current Diagnoses Pain in left arm (02/11/22) Weakness (02/11/22) Strain of muscle, fascia and tendon of other parts of biceps, left arm, initial encounter (02/11/22) Encounter for other specified surgical aftercare (02/11/22) Physical Therapy Treatment Note PT-OP-A Visit Information Start: 12/28/21 16:41 Freq: Status: Active Protocol: Document 02/11/22 08:11 [facility] (Rec: 02/11/22 09:01 [facility] [id number]) Out-Patient Physical Therapy Visit Information Visit Information Visit Type Treatment Note Visit Note Surgery 11/23/21; patient 11 weeks post-op Visit Start Time 08:15 Visit Stop Time 09:05 Total Visit Minutes 55 Visit Number 8 Number of SAUSAGE TIER Visits [address] Arellano note standard biceps tendon repair protocol PT-OP-B Current Condition Start: 12/28/21 16:41 Freq: Status: Active Protocol: Document 12/29/21 08:57 [facility] (Rec: 12/29/21 09:48 [facility] [id number]) Current Condition History of Current Condition Onset Date 11/23/21 Current Complaints left elbow pain, shoulder pain swelling left UE especially hand. History of Current Condition was picking up heavy flat screen TV, heard pop and felt like bicep broke and retracted into his arm. Had surgical repair 11/23/21; [facility] doctor told him a lot of scar tissue had to be cut out, was worried about tearing free so didn't want him to do PT initially. Follow-up appointment 2 weeks ago; [facility] doctor wanted him to do recovery without PT. advised bending and straightening his arm and rotating his arm. Swelling not going down, pain is incredible so asked for PT . Has been doing ROM at elbow as advised and some hand and finger ROM, occasionally trying to reach up overhead. Was told not to lift over a pound, no pushing or pulling. No icing recently because doesn't seem to be helping. 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 [id number]) OP-PT Subjective Patient Comments Patient Comments Really likes the kinesiotape, less pain, able to do more with his left UE, feeling more hopeful about his arm. PT-OP-H Neuro Start: 12/28/21 16:41 Freq: Status: Active Protocol: Document 12/29/21 08:57 [facility] (Rec: 12/30/21 16:51 [facility] [id number]) Sensation Evaluation Gross Sensation Gross Sensation Left UE Impaired Sensation Description Paresthesia PT-OP-J Posture/Palpation/Skin Start: 12/28/21 16:41 Freq: Status: Active Protocol: Document 12/29/21 08:57 [facility] (Rec: 12/30/21 16:51 [facility] [id number]) Posture Evaluation Position Sitting Shoulder Posture (L) Rounded Arm Posture (L) Internally Rotated Palpation Assessment Location One Palpation Location left UE Palpation Findings Edema,Muscle Guarding, Tenderness Palpation Details Patient very tender to touch throughout left UE with moderate swelling left forearm and hand. Incisions healing well; anterior elbow mostly closed with immature scar, posterior elbow scar still with steri strips but no signs or symptoms of infection. Skin Assessment Edema Assessment Left Arm Edema Appearance Discolored,Puffy,Taut Incisional Assessment Incision Appearance/Comments as above PT-OP-K Range of Motion Start: 12/28/21 16:41 Freq: Status: Active Protocol: Document 12/29/21 08:57 [facility] (Rec: 12/30/21 16:51 [facility] [id number]) Cervical Spine Range of Motion Cervical Spine Active Testing Position Sitting Comments WNL Shoulder Goniometric Range of Motion Shoulder Left Active Shoulder ROM WFL No Flexion 15 External Rotation at 0 degrees Abduction 10 Right Active Shoulder ROM WFL Yes Shoulder ROM Limitations Shoulder ROM Limitations Pain Elbow/Forearm Range of Motion Elbow/Forearm Left Active Elbow Flexion (degrees) 115 Elbow Extension (degrees) 8 Pronation (degrees) 90 Supination (degrees) 22 Right Active Elbow/Forearm ROM WFL Yes Elbow/Forearm ROM Limitations Elbow/Forearm ROM Limitations Soft Tissue Tightness,Pain, Swelling Wrist Goniometric Range of Motion Wrist Left Wrist ROM WFL No Flexion Active (degrees) 15 Flexion Passive (degrees) 10 Right Wrist ROM WFL Yes ROM Limitations Wrist Limitations of Range of Motion Swelling Finger Goniometric Range of Motion Finger alll Comments unable to make a full fist or touch fingers to thumb due to swelling left hand. Finger ROM Limitations Finger ROM Limitations Swelling PT-OP-M Strength Start: 12/28/21 16:41 Freq: Status: Active Protocol: Document 12/29/21 08:57 [facility] (Rec: 12/30/21 16:51 [facility] [id number]) Shoulder Strength Shoulder Manual Muscle Testing Left Comments not assessed due to recent surgery Right Flexion 5 Normal Extension 5 Normal External Rotation 5 Normal Internal Rotation 5 Normal Horizontal Abduction 5 Normal Horizontal Adduction 5 Normal Elbow/Forearm Strength Elbow and Forearm Manual Muscle Testing Left Comments not assessed due to recent surgery Right Flexion (C6) 5 Normal Extension (C7) 5 Normal Pronation 5 Normal Supination 5 Normal PT-OP-Q Treatments Start: 12/28/21 16:41 Freq: Status: Active Protocol: Document 02/11/22 08:11 [facility] (Rec: 02/11/22 09:01 [facility] [id number]) Cardio Equipment Recumbent Elliptical (Imperva) Duration (Minutes) 6 Resistance 1 Seat Position 10 Other cues for pain-free ROM and intensity, reported feels good Therapeutic Exercises Supine Exercises serratus punch Equipment Used wand Reps/Minutes 10x Comments denied increase in pain chest press Equipment Used wand Reps/Minutes 10x Comments denied increase in pain elbow AROM Supine Exercise Name PROM> AROM: flex, ext, pron, supination Side left Equipment Used elbow flexed and extended as tolerated Reps/Minutes x10 Comments good feedback response shoulder flex Supine Exercise Name wand Reps/Minutes 10x Comments 90 to flex as tolerated, thumbs up shoulder PROM Supine Exercise Name elbow extended Side left Reps/Minutes 10x Comments all planes Sitting Exercises forearm sup Sitting Exercise Name from neutral forearm thumb up, elbow supported Equipment Used 2# weight Reps/Minutes 10x5 Comments into supination stretch AAROM with weight Wrist Sitting Exercise Name Flexion/Extension/UD/RD Side left Reps/Minutes 1 x 10 w/ 1 SH hold Comments elbow stabilized on mat table Standing Exercises wall slide Equipment Used slider sheet Reps/Minutes 10x 5s hold shoulder IR and ER Reps/Minutes 10x Manual Therapy Treatment Taping left hand/forearm Type of Tape Kinesio Tape Comments fan strip extending into dorsal 2-4th digit to nail bed from base at cubital fossa . Y strip with base distal biceps with 50% stretch to ant GH Self-Care/Home Management Treatment Education Patient Education Home Exercise Program,Pain Management Other Education remove tape 24 hours before next appointment. PT-OP-R Modalities Start: 12/28/21 16:41 Freq: Status: Active Protocol: Document 02/11/22 08:11 [facility] (Rec: 02/11/22 10:10 [facility] [id number]) Electric Stimulation Electric Stimulation Interferential Current (IFC) Body Location left shoulder Duration (Minutes) 10 Intensity 11 Target/Sweep Sweep Patient Position Hooklying Combined With Heat/Cold Cold Pack Comments end of treatment PT-OP-T Assessment and Plan Start: 12/28/21 16:41 Freq: Status: Active Protocol: Document 02/11/22 08:11 [facility] (Rec: 02/11/22 09:01 [facility] [id number]) Physical Therapy Assessment Goals Four Impairment activity tolerance Impairment Quickdash disability index score 60% Short Term Goal (STG) decrease quickdash score to no greater than 40% as measure of improved left UE activity tolerance STG Duration 01/28/22 Senior Care Goal (LTG) decrease quickdash score to no greater than 10% as measure of improved left UE activity tolerance and return to usual activities. LTG Duration 03/31/22 Three Impairment Limited ROM and strength left UE Short Term Goal (STG) Patient able to tolerate a progressive HEP following post -op protocol left UE for purposes of ROM and strengthening STG Duration 01/28/22 Communications Agent Goal (LTG) Patient will demonstrate left UE ROM and strength of at least 4+/5 all muscle groups to allow a return to prior level of function LTG Duration 03/31/22 Two Impairment edema left UE contributing to pain and limited motion Senior Care Goal (LTG) Decrease edema left UE to within 1 cm measurements on right to allow normal motion all left UE joints and return to activity LTG Duration 03/31/22 One Impairment pain left UE Impairment as high as 7/10 Short Term Goal (STG) Decrease pain to no greater than 4/10 STG Duration 01/28/22 Communications Agent Goal (LTG) Decrease pain to no greater than 2/10 with all usual activities LTG Duration 03/31/22 Assessment Summary Assessment Patient pain and hand swelling decreased with kinesiotape, improved tolerance for ther ex , initiated Biodex today with good tolerance. Ran out of time for manual treatment biceps tendon, scar. Benefits from IFES for pain reduction. Still lacking full supination, added stretch with 2# weight from neutral forearm rotation to supination with good tolerance. Physical Therapy Plan Frequency and Duration Frequency of Treatment 2x/Week Duration of Treatment 12 weeks Plan of Care Start Date 12/29/21 Plan of Care End Date 03/31/22 Next Visit Focus/Plan Next Note Type Treatment Note Next Visit Plan Review HEP, updated written handout as needed. Continue with Biodex, add PNF multiplanar movements, GH mobs as indicated, manual treatment to surgical scar and biceps tendon. Continue kinesiotape. End with ice/ IFES.
--- NOTE | 2022-02-16 09:05 | PT.OTN ---
Current Diagnoses Pain in left arm (02/18/22) Weakness (02/18/22) Strain of muscle, fascia and tendon of other parts of biceps, left arm, initial encounter (02/18/22) Encounter for other specified surgical aftercare (02/18/22) Physical Therapy Treatment Note PT-OP-A Visit Information Start: 12/28/21 16:41 Freq: Status: Active Protocol: Document 02/18/22 08:31 NBM (Rec: 02/16/22 09:10 NBM [id number]) Out-Patient Physical Therapy Visit Information Visit Information Visit Type Treatment Note Visit Note Surgery 11/23/21; patient 11 weeks post-op Visit Start Time 08:24 Visit Stop Time 09:05 Total Visit Minutes 41 Visit Number 9 Number of CHANGE ROOM ATTENDANT Visits 1 PT-OP-B Current Condition Start: 12/28/21 16:41 Freq: Status: Active Protocol: Document 12/29/21 08:57 SAK (Rec: 12/29/21 09:48 SAK [id number]) Current Condition History of Current Condition Onset Date 11/23/21 Current Complaints left elbow pain, shoulder pain swelling left UE especially hand. History of Current Condition was picking up heavy flat screen TV, heard pop and felt like bicep broke and retracted into his arm. Had surgical repair 11/23/21; [facility] doctor told him a lot of scar tissue had to be cut out, was worried about tearing free so didn't want him to do PT initially. Follow-up appointment 2 weeks ago; [facility] doctor wanted him to do recovery without PT. advised bending and straightening his arm and rotating his arm. Swelling not going down, pain is incredible so asked for PT . Has been doing ROM at elbow as advised and some hand and finger ROM, occasionally trying to reach up overhead. Was told not to lift over a pound, no pushing or pulling. No icing recently because doesn't seem to be helping. 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 Surgeon told him their office will contact L&I but there might be dispute since initial injury was L elbow and now this is L shoulder. Kinesiotape has been great and he thinks L arm is better. PT-OP-H Neuro Start: 12/28/21 16:41 Freq: Status: Active Protocol: Document 12/29/21 08:57 SAK (Rec: 12/30/21 16:51 [facility] [id number]) Sensation Evaluation Gross Sensation Gross Sensation Left UE Impaired Sensation Description Paresthesia PT-OP-J Posture/Palpation/Skin Start: 12/28/21 16:41 Freq: Status: Active Protocol: Document 12/29/21 08:57 SAK (Rec: 12/30/21 16:51 [facility] [id number]) Posture Evaluation Position Sitting Shoulder Posture (L) Rounded Arm Posture (L) Internally Rotated Palpation Assessment Location One Palpation Location left UE Palpation Findings Edema,Muscle Guarding, Tenderness Palpation Details Patient very tender to touch throughout left UE with moderate swelling left forearm and hand. Incisions healing well; anterior elbow mostly closed with immature scar, posterior elbow scar still with steri strips but no signs or symptoms of infection. Skin Assessment Edema Assessment Left Arm Edema Appearance Discolored,Puffy,Taut Incisional Assessment Incision Appearance/Comments as above PT-OP-K Range of Motion Start: 12/28/21 16:41 Freq: Status: Active Protocol: Document 12/29/21 08:57 SAK (Rec: 12/30/21 16:51 [facility] [id number]) Cervical Spine Range of Motion Cervical Spine Active Testing Position Sitting Comments WNL Shoulder Goniometric Range of Motion Shoulder Left Active Shoulder ROM WFL No Flexion 15 External Rotation at 0 degrees Abduction 10 Right Active Shoulder ROM WFL Yes Shoulder ROM Limitations Shoulder ROM Limitations Pain Elbow/Forearm Range of Motion Elbow/Forearm Left Active Elbow Flexion (degrees) 115 Elbow Extension (degrees) 8 Pronation (degrees) 90 Supination (degrees) 22 Right Active Elbow/Forearm ROM WFL Yes Elbow/Forearm ROM Limitations Elbow/Forearm ROM Limitations Soft Tissue Tightness,Pain, Swelling Wrist Goniometric Range of Motion Wrist Left Wrist ROM WFL No Flexion Active (degrees) 15 Flexion Passive (degrees) 10 Right Wrist ROM WFL Yes ROM Limitations Wrist Limitations of Range of Motion Swelling Finger Goniometric Range of Motion Finger alll Comments unable to make a full fist or touch fingers to thumb due to swelling left hand. Finger ROM Limitations Finger ROM Limitations Swelling PT-OP-M Strength Start: 12/28/21 16:41 Freq: Status: Active Protocol: Document 12/29/21 08:57 SAK (Rec: 12/30/21 16:51 SAK [id number]) Shoulder Strength Shoulder Manual Muscle Testing Left Comments not assessed due to recent surgery Right Flexion 5 Normal Extension 5 Normal External Rotation 5 Normal Internal Rotation 5 Normal Horizontal Abduction 5 Normal Horizontal Adduction 5 Normal Elbow/Forearm Strength Elbow and Forearm Manual Muscle Testing Left Comments not assessed due to recent surgery Right Flexion (C6) 5 Normal Extension (C7) 5 Normal Pronation 5 Normal Supination 5 Normal PT-OP-Q Treatments Start: 12/28/21 16:41 Freq: Status: Active Protocol: Document 02/18/22 08:31 NBM (Rec: 02/16/22 09:10 NBM [id number]) Cardio Equipment Recumbent Elliptical (FEMA Guides) Duration (Minutes) 6 Resistance 1 Seat Position 10 Other dc'd d/t to c/o L shoulder pain Therapeutic Exercises Supine Exercises shoulder blade squeeze Supine Exercise Name scapular retraction Reps/Minutes 1 x 10 Sitting Exercises forearm sup Sitting Exercise Name from neutral forearm thumb up, elbow supported Equipment Used 3#>2# weight Reps/Minutes 10x5 Comments into supination stretch AAROM with weight ebow flex Sitting Exercise Name AROM Reps/Minutes 10x elbow extension Sitting Exercise Name active with terminal stretch Reps/Minutes 10x5 Pron/sup Sitting Exercise Name AROM Resistance 2# Reps/Minutes 10x 2with terminal stretch x 5 Hand Sitting Exercise Name Finger Abduction to Closed Fist Side left Reps/Minutes 1 x 10 rep Wrist Sitting Exercise Name Flexion/Extension//RD Side left Resistance 1# Reps/Minutes 1 x 10 each motion Comments elbow stabilized on mat table Scapular retraction Sitting Exercise Name Shoulder Blade Squeeze Reps/Minutes 1 x 10 rep w/ 5SH Comments Verbal/tactile cues for slower pace, hold full 5, no UT Manual Therapy Treatment Soft Tissue Mobilization Retrograde STM Body Location L hand - HEP review Mobilization Type Other Intensity/Depth Superficial Body Position Sitting Comments Pt had forgotten about this - Followed with fist to open and fingers together/apart exercises. Shoulder Body Location L Long head Biceps, pec, UT, scar Mobilization Type Cross-Friction,Myofascial Release,Rolling Intensity/Depth gentle Body Position Hooklying Comments pillow supporting left UE Taping left hand/forearm Body Location left hand/forearm, bicep Type of Tape Kinesio Tape Comments fan strip extending into dorsal 2-4th digit to nail bed from base at cubital fossa . Y strip with base distal biceps with 50% stretch to ant GH PT-OP-R Modalities Start: 12/28/21 16:41 Freq: Status: Active Protocol: Document 02/18/22 08:31 [facility] (Rec: 02/19/22 04:59 [facility] [id number]) Electric Stimulation Electric Stimulation Interferential Current (IFC) Body Location left shoulder Duration (Minutes) 10 Intensity 11 Target/Sweep Sweep Patient Position Hooklying Combined With Heat/Cold Cold Pack Comments end of treatment Hot Pack/Cold Pack Treatment Cold Pack Location left shoulder, elbow Patient Position Hooklying Treatment Duration (minutes) 10 Patient Tolerance Good Comments w/ IFES PT-OP-T Assessment and Plan Start: 12/28/21 16:41 Freq: Status: Active Protocol: Document 02/18/22 08:31 [facility] (Rec: 02/16/22 09:10 [facility] [id number]) Physical Therapy Assessment Goals Four Impairment activity tolerance Impairment Quickdash disability index score 60% Short Term Goal (STG) decrease quickdash score to no greater than 40% as measure of improved left UE activity tolerance STG Duration 01/28/22 Group Home Goal (LTG) decrease quickdash score to no greater than 10% as measure of improved left UE activity tolerance and return to usual activities. LTG Duration 03/31/22 Three Impairment Limited ROM and strength left UE Short Term Goal (STG) Patient able to tolerate a progressive HEP following post -op protocol left UE for purposes of ROM and strengthening STG Duration 01/28/22 Screwhead Polisher Goal (LTG) Patient will demonstrate left UE ROM and strength of at least 4+/5 all muscle groups to allow a return to prior level of function LTG Duration 03/31/22 Two Impairment edema left UE contributing to pain and limited motion Screwhead Polisher Goal (LTG) Decrease edema left UE to within 1 cm measurements on right to allow normal motion all left UE joints and return to activity LTG Duration 03/31/22 One Impairment pain left UE Impairment as high as 7/10 Short Term Goal (STG) Decrease pain to no greater than 4/10 STG Duration 01/28/22 Group Home Goal (LTG) Decrease pain to no greater than 2/10 with all usual activities LTG Duration 03/31/22 Assessment Summary Assessment Pt presents w/increased L shoulder pain today and reports possible L rotator cuff tear per surgeon. Treatment focus today on HEP review and manual therapy to L shoulder and UE. Pt's L hand swelling continues to improve and pt demonstrates improved functional movement in L hand (opposition to each finger) but demonstrates limited supination - unable to tolerate added stretch w/ 3# weight but continues to tolerate 2#. Pt continues to be challenged w/ Upper trapezius over activation and will benefit from continued skilled therapeutic intervention. Physical Therapy Plan Next Visit Focus/Plan Next Note Type Treatment Note Next Visit Plan Review HEP, updated written handout as needed. Continue with Biodex as tolerated, add PNF multiplanar movements, GH mobs as indicated, manual treatment to surgical scar and biceps tendon. Continue kinesiotape. End with ice/ IFES.
--- NOTE | 2022-02-18 09:14 | PT.OTN ---
Current Diagnoses Pain in left arm (02/18/22) Weakness (02/18/22) Strain of muscle, fascia and tendon of other parts of biceps, left arm, initial encounter (02/18/22) Encounter for other specified surgical aftercare (02/18/22) Physical Therapy Treatment Note PT-OP-A Visit Information Start: 12/28/21 16:41 Freq: Status: Active Protocol: Document 02/18/22 08:12 SAK (Rec: 02/18/22 09:01 [facility] [id number]) Out-Patient Physical Therapy Visit Information Visit Information Visit Type Treatment Note Visit Note Surgery 11/23/21; patient 12 weeks post-op Visit Start Time 08:15 Visit Stop Time 08:58 Total Visit Minutes 43 Visit Number 10 Number of KILN SETTER Visits 0 PT-OP-B Current Condition Start: 12/28/21 16:41 Freq: Status: Active Protocol: Document 12/29/21 08:57 SAK (Rec: 12/29/21 09:48 [facility] [id number]) Current Condition History of Current Condition Onset Date 11/23/21 Current Complaints left elbow pain, shoulder pain swelling left UE especially hand. History of Current Condition was picking up heavy flat screen TV, heard pop and felt like bicep broke and retracted into his arm. Had surgical repair 11/23/21; [facility] doctor told him a lot of scar tissue had to be cut out, was worried about tearing free so didn't want him to do PT initially. Follow-up appointment 2 weeks ago; [facility] doctor wanted him to do recovery without PT. advised bending and straightening his arm and rotating his arm. Swelling not going down, pain is incredible so asked for PT . Has been doing ROM at elbow as advised and some hand and finger ROM, occasionally trying to reach up overhead. Was told not to lift over a pound, no pushing or pulling. No icing recently because doesn't seem to be helping. 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 Didn't feel ice and IFES helpful for shoulder pain, though patient continues with ice at home and in car on way to and from work, also resting left UE on pillow per PT recommendation while driving for some relief of shoulder pain. PT-OP-H Neuro Start: 12/28/21 16:41 Freq: Status: Active Protocol: Document 12/29/21 08:57 [facility] (Rec: 12/30/21 16:51 [facility] [id number]) Sensation Evaluation Gross Sensation Gross Sensation Left UE Impaired Sensation Description Paresthesia PT-OP-J Posture/Palpation/Skin Start: 12/28/21 16:41 Freq: Status: Active Protocol: Document 12/29/21 08:57 [facility] (Rec: 12/30/21 16:51 [facility] [id number]) Posture Evaluation Position Sitting Shoulder Posture (L) Rounded Arm Posture (L) Internally Rotated Palpation Assessment Location One Palpation Location left UE Palpation Findings Edema,Muscle Guarding, Tenderness Palpation Details Patient very tender to touch throughout left UE with moderate swelling left forearm and hand. Incisions healing well; anterior elbow mostly closed with immature scar, posterior elbow scar still with steri strips but no signs or symptoms of infection. Skin Assessment Edema Assessment Left Arm Edema Appearance Discolored,Puffy,Taut Incisional Assessment Incision Appearance/Comments as above PT-OP-K Range of Motion Start: 12/28/21 16:41 Freq: Status: Active Protocol: Document 12/29/21 08:57 [facility] (Rec: 12/30/21 16:51 [facility] [id number]) Cervical Spine Range of Motion Cervical Spine Active Testing Position Sitting Comments WNL Shoulder Goniometric Range of Motion Shoulder Left Active Shoulder ROM WFL No Flexion 15 External Rotation at 0 degrees Abduction 10 Right Active Shoulder ROM WFL Yes Shoulder ROM Limitations Shoulder ROM Limitations Pain Elbow/Forearm Range of Motion Elbow/Forearm Left Active Elbow Flexion (degrees) 115 Elbow Extension (degrees) 8 Pronation (degrees) 90 Supination (degrees) 22 Right Active Elbow/Forearm ROM WFL Yes Elbow/Forearm ROM Limitations Elbow/Forearm ROM Limitations Soft Tissue Tightness,Pain, Swelling Wrist Goniometric Range of Motion Wrist Left Wrist ROM WFL No Flexion Active (degrees) 15 Flexion Passive (degrees) 10 Right Wrist ROM WFL Yes ROM Limitations Wrist Limitations of Range of Motion Swelling Finger Goniometric Range of Motion Finger alll Comments unable to make a full fist or touch fingers to thumb due to swelling left hand. Finger ROM Limitations Finger ROM Limitations Swelling PT-OP-M Strength Start: 12/28/21 16:41 Freq: Status: Active Protocol: Document 12/29/21 08:57 [facility] (Rec: 12/30/21 16:51 [facility] [id number]) Shoulder Strength Shoulder Manual Muscle Testing Left Comments not assessed due to recent surgery Right Flexion 5 Normal Extension 5 Normal External Rotation 5 Normal Internal Rotation 5 Normal Horizontal Abduction 5 Normal Horizontal Adduction 5 Normal Elbow/Forearm Strength Elbow and Forearm Manual Muscle Testing Left Comments not assessed due to recent surgery Right Flexion (C6) 5 Normal Extension (C7) 5 Normal Pronation 5 Normal Supination 5 Normal PT-OP-Q Treatments Start: 12/28/21 16:41 Freq: Status: Active Protocol: Document 02/18/22 08:12 [facility] (Rec: 02/18/22 09:01 [facility] [id number]) Cardio Equipment Recumbent Elliptical (Biodex) Other not done due to inc shoulder pain after Therapeutic Exercises Supine Exercises shoulder blade squeeze Supine Exercise Name scapular retraction Reps/Minutes 1 x 10 elbow AROM Supine Exercise Name AROM: flex, ext, pron, supination Side left Equipment Used elbow flexed and extended as tolerated Reps/Minutes x10 Comments good feedback response Sitting Exercises forearm sup Reps/Minutes 3 min Comments manual stretch Pron/sup Sitting Exercise Name AROM Resistance 2# Reps/Minutes 10x 2with terminal stretch x 5 Wrist Sitting Exercise Name Flexion/Extension//RD Side left Resistance 1# Reps/Minutes 1 x 10 each motion Comments elbow stabilized on mat table Scapular retraction Sitting Exercise Name Shoulder Blade Squeeze Reps/Minutes 1 x 10 rep w/ 5SH Comments Verbal/tactile cues for slower pace, hold full 5, no UT Standing Exercises tricep press Resistance L1 TB Reps/Minutes 10x2 bicep curl Resistance 1# Reps/Minutes 10x2 Manual Therapy Treatment Soft Tissue Mobilization surgical scar Mobilization Type Myofascial Release Intensity/Depth mod Body Position Sitting Comments good tolerance Taping left hand/forearm Body Location left hand/forearm, bicep Type of Tape Kinesio Tape Comments fan strip extending into dorsal 2-4th digit to nail bed from base at cubital fossa . Y strip with base distal biceps with 50% stretch to ant GH Self-Care/Home Management Treatment Education Patient Education Home Exercise Program,Pain Management Other Education added bicep curl and tricep press with resistance with good tolerance, issued L1 and L2 TB, ok to progress resistance at home if ramon well 2-3 times bicep curl 1# and tricep press L1 Instruction for increased self stretching of fingers manually as well as use of hand to continue to decrease edema. PT-OP-R Modalities Start: 12/28/21 16:41 Freq: Status: Active Protocol: Document 02/18/22 08:12 [facility] (Rec: 02/18/22 09:01 [facility] [id number]) Hot Pack/Cold Pack Treatment Cold Pack Comments patient to do on own. PT-OP-T Assessment and Plan Start: 12/28/21 16:41 Freq: Status: Active Protocol: Document 02/18/22 08:12 [facility] (Rec: 02/18/22 09:01 [facility] [id number]) Physical Therapy Assessment Goals Four Impairment activity tolerance Impairment Quickdash disability index score 60% Short Term Goal (STG) decrease quickdash score to no greater than 40% as measure of improved left UE activity tolerance STG Duration 01/28/22 Alf Goal (LTG) decrease quickdash score to no greater than 10% as measure of improved left UE activity tolerance and return to usual activities. LTG Duration 03/31/22 Three Impairment Limited ROM and strength left UE Short Term Goal (STG) Patient able to tolerate a progressive HEP following post -op protocol left UE for purposes of ROM and strengthening STG Duration 01/28/22 Website Developer Goal (LTG) Patient will demonstrate left UE ROM and strength of at least 4+/5 all muscle groups to allow a return to prior level of function LTG Duration 03/31/22 Two Impairment edema left UE contributing to pain and limited motion Alf Goal (LTG) Decrease edema left UE to within 1 cm measurements on right to allow normal motion all left UE joints and return to activity LTG Duration 03/31/22 One Impairment pain left UE Impairment as high as 7/10 Short Term Goal (STG) Decrease pain to no greater than 4/10 STG Duration 01/28/22 Alf Goal (LTG) Decrease pain to no greater than 2/10 with all usual activities LTG Duration 03/31/22 Assessment Summary Assessment Patient elbow rehab progressing well, but not able to do shoulder elevation UE motion or ex without excess pain, may have RC tear per physician. Long head of biceps participates in shoulder elevation, but patient signs and symptoms are consistent with further shoulder pathology. Since PT began patient has been most limited by shoulder pain, as well as left hand swelling; swelling gradually improving especially with use of kinesiotape, but again shoulder pain persists and is highly limiting. Awaiting further imaging. Physical Therapy Plan Frequency and Duration Frequency of Treatment 2x/Week Duration of Treatment 12 weeks Plan of Care Start Date 12/29/21 Plan of Care End Date 03/31/22 Next Visit Focus/Plan Next Note Type Treatment Note
--- NOTE | 2022-02-22 09:00 | PT.OTN ---
Current Diagnoses Pain in left arm (02/24/22) Weakness (02/24/22) Strain of muscle, fascia and tendon of other parts of biceps, left arm, initial encounter (02/24/22) Encounter for other specified surgical aftercare (02/24/22) Physical Therapy Treatment Note PT-OP-A Visit Information Start: 12/28/21 16:41 Freq: Status: Active Protocol: Document 02/25/22 08:12 NBM (Rec: 02/22/22 10:23 NBM [id number]) Out-Patient Physical Therapy Visit Information Visit Information Visit Type Treatment Note Visit Start Time 08:15 Visit Stop Time 08:56 Total Visit Minutes 41 Visit Number 11 Number of SR SOLUTIONS CONSULTANT Visits [address] Arellano note standard biceps tendon repair protocol PT-OP-B Current Condition Start: 12/28/21 16:41 Freq: Status: Active Protocol: Document 12/29/21 08:57 SAK (Rec: 12/29/21 09:48 SAK [id number]) Current Condition History of Current Condition Onset Date 11/23/21 Current Complaints left elbow pain, shoulder pain swelling left UE especially hand. History of Current Condition was picking up heavy flat screen TV, heard pop and felt like bicep broke and retracted into his arm. [facility] lot of scar tissue had to be cut out, was worried about tearing free so didn't want him to do PT initially. Follow-up appointment 2 weeks ago; states doctor wanted him to do recovery without PT. advised bending and straightening his arm and rotating his arm. Swelling not going down, pain is incredible so asked for PT . Has been doing ROM at elbow as advised and some hand and finger ROM, occasionally trying to reach up overhead. Was told not to lift over a pound, no pushing or pulling. No icing recently because doesn't seem to be helping. 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 I went to the shooting range yesterday and didn't shoot, but the air assault was so painful on my shoulder I had my friends stop. Pain -01/24. Pt states pain wakes him and he is no longer prescribed pain medication so has been using alcohol to sleep. PT-OP-H Neuro Start: 12/28/21 16:41 Freq: Status: Active Protocol: Document 12/29/21 08:57 SAK (Rec: 12/30/21 16:51 [facility] [id number]) Sensation Evaluation Gross Sensation Gross Sensation Left UE Impaired Sensation Description Paresthesia PT-OP-J Posture/Palpation/Skin Start: 12/28/21 16:41 Freq: Status: Active Protocol: Document 12/29/21 08:57 SAK (Rec: 12/30/21 16:51 [facility] [id number]) Posture Evaluation Position Sitting Shoulder Posture (L) Rounded Arm Posture (L) Internally Rotated Palpation Assessment Location One Palpation Location left UE Palpation Findings Edema,Muscle Guarding, Tenderness Palpation Details Patient very tender to touch throughout left UE with moderate swelling left forearm and hand. Incisions healing well; anterior elbow mostly closed with immature scar, posterior elbow scar still with steri strips but no signs or symptoms of infection. Skin Assessment Edema Assessment Left Arm Edema Appearance Discolored,Puffy,Taut Incisional Assessment Incision Appearance/Comments as above PT-OP-K Range of Motion Start: 12/28/21 16:41 Freq: Status: Active Protocol: Document 12/29/21 08:57 SAK (Rec: 12/30/21 16:51 [facility] [id number]) Cervical Spine Range of Motion Cervical Spine Active Testing Position Sitting Comments WNL Shoulder Goniometric Range of Motion Shoulder Left Active Shoulder ROM WFL No Flexion 15 External Rotation at 0 degrees Abduction 10 Right Active Shoulder ROM WFL Yes Shoulder ROM Limitations Shoulder ROM Limitations Pain Elbow/Forearm Range of Motion Elbow/Forearm Left Active Elbow Flexion (degrees) 115 Elbow Extension (degrees) 8 Pronation (degrees) 90 Supination (degrees) 22 Right Active Elbow/Forearm ROM WFL Yes Elbow/Forearm ROM Limitations Elbow/Forearm ROM Limitations Soft Tissue Tightness,Pain, Swelling Wrist Goniometric Range of Motion Wrist Left Wrist ROM WFL No Flexion Active (degrees) 15 Flexion Passive (degrees) 10 Right Wrist ROM WFL Yes ROM Limitations Wrist Limitations of Range of Motion Swelling Finger Goniometric Range of Motion Finger alll Comments unable to make a full fist or touch fingers to thumb due to swelling left hand. Finger ROM Limitations Finger ROM Limitations Swelling PT-OP-M Strength Start: 12/28/21 16:41 Freq: Status: Active Protocol: Document 12/29/21 08:57 SAK (Rec: 12/30/21 16:51 [facility] [id number]) Shoulder Strength Shoulder Manual Muscle Testing Left Comments not assessed due to recent surgery Right Flexion 5 Normal Extension 5 Normal External Rotation 5 Normal Internal Rotation 5 Normal Horizontal Abduction 5 Normal Horizontal Adduction 5 Normal Elbow/Forearm Strength Elbow and Forearm Manual Muscle Testing Left Comments not assessed due to recent surgery Right Flexion (C6) 5 Normal Extension (C7) 5 Normal Pronation 5 Normal Supination 5 Normal PT-OP-Q Treatments Start: 12/28/21 16:41 Freq: Status: Active Protocol: Document 02/25/22 08:12 RACQUEL (Rec: 02/22/22 10:23 [facility] [id number]) Cardio Equipment Upper Body Ergometer (UBE) Other dc/d d/t c/o L shoulder pain Therapeutic Exercises Supine Exercises diaphragmatic breathing Supine Exercise Name added to HEP for pain management/sleeping Reps/Minutes 3' Comments hand on chest and belly, cue for breathing into belly 4SH elbow AROM Supine Exercise Name AROM: flex, ext, pron, supination Side left Equipment Used elbow flexed and extended as tolerated Reps/Minutes x10 Comments good feedback response Sitting Exercises pully Sitting Exercise Name AAROM Comments dc'd d/t c/o of L shoulder pain ebow flex Sitting Exercise Name AROM Reps/Minutes 10x elbow extension Sitting Exercise Name active with terminal stretch Reps/Minutes 10x5 Pron/sup Sitting Exercise Name AROM Resistance 2#>3#>2# Reps/Minutes 10x 2 with terminal stretch x 5 Comments 2# easy - trialed 3# pt able to tolerate 5 reps only, continue 2# Hand Sitting Exercise Name Finger Abduction to Closed Fist Side left Reps/Minutes 1 x 10 rep Wrist Sitting Exercise Name Flexion/Extension//RD Side left Resistance 1# Reps/Minutes 1 x 10 each motion Comments elbow stabilized on mat table Scapular retraction Sitting Exercise Name Shoulder Blade Squeeze Reps/Minutes 1 x 10 rep w/ 5SH Comments Verbal/tactile cues for slower pace, hold full 5, no UT Manual Therapy Treatment Soft Tissue Mobilization surgical scar Mobilization Type Myofascial Release Intensity/Depth mod Body Position Hooklying Comments good tolerance Retrograde STM Body Location L hand Mobilization Type Other Intensity/Depth Superficial Body Position Sitting Comments UE supported Shoulder Body Location L Long head Biceps, pec, UT, scar Mobilization Type Cross-Friction,Myofascial Release,Rolling Intensity/Depth gentle Body Position Hooklying Comments pillow supporting left UE Joint Mobilizations L GH jt Direction post, inf Grade II Body Position Hooklying Reps/Duration 5 min Comments no inc pain; distraction to L GH jt w/ gentle oscillations Taping left hand/forearm Body Location left hand/forearm, bicep Type of Tape Kinesio Tape Comments fan strip extending into dorsal 2-4th digit to nail bed from base at cubital fossa . Y strip with base distal biceps with 50% stretch to ant GH Self-Care/Home Management Treatment Education Patient Education Home Exercise Program,Pain Management Other Education Discussed in regards to pain management for sleeping: alcohol as dehydrating; better pain management options: hydration, ice and diaphragmatic breathing for parasympathetic nervous system activation. Pt practiced self -monitoring diaphragmatic breathing. Added to HEP: diaphragmatic breathing - HO given. PT-OP-R Modalities Start: 12/28/21 16:41 Freq: Status: Active Protocol: Document 02/25/22 08:12 [facility] (Rec: 02/22/22 10:23 [facility] [id number]) Hot Pack/Cold Pack Treatment Cold Pack Location left shoulder, elbow Patient Position Hooklying Treatment Duration (minutes) 10 Patient Tolerance Good Comments IFES declined PT-OP-T Assessment and Plan Start: 12/28/21 16:41 Freq: Status: Active Protocol: Document 02/25/22 08:12 NB (Rec: 02/22/22 10:23 [facility] [id number]) Physical Therapy Assessment Impairments Impairments Activity Tolerance,Edema,ROM, Strength Goals Four Impairment activity tolerance Impairment Quickdash disability index score 60% Short Term Goal (STG) decrease quickdash score to no greater than 40% as measure of improved left UE activity tolerance STG Duration 01/28/22 Safety And Security Manager Goal (LTG) decrease quickdash score to no greater than 10% as measure of improved left UE activity tolerance and return to usual activities. LTG Duration 03/31/22 Three Impairment Limited ROM and strength left UE Short Term Goal (STG) Patient able to tolerate a progressive HEP following post -op protocol left UE for purposes of ROM and strengthening STG Duration 01/28/22 Safety And Security Manager Goal (LTG) Patient will demonstrate left UE ROM and strength of at least 4+/5 all muscle groups to allow a return to prior level of function LTG Duration 03/31/22 Two Impairment edema left UE contributing to pain and limited motion Safety And Security Manager Goal (LTG) Decrease edema left UE to within 1 cm measurements on right to allow normal motion all left UE joints and return to activity LTG Duration 03/31/22 One Impairment pain left UE Impairment as high as 7/10 Short Term Goal (STG) Decrease pain to no greater than 4/10 STG Duration 01/28/22 Detention Goal (LTG) Decrease pain to no greater than 2/10 with all usual activities LTG Duration 03/31/22 Assessment Summary Assessment Treatment focus today on ROM and manual therapy and education regarding pain management due to increased L shoulder pain. Pt's L elbow continues to improve but treatment session is pain- limited by L shoulder. Discussed pain management tools: hydration, ice, and diaphragmatic breathing. Pt demonstrates diaphgragmatic breathing - added to HEP and HO given. Pain improved from 6 -7/10 to 2-3/10 after manual therapy. Pt will contact surgeon's office for status of L&I approval for imaging of L shoulder. Physical Therapy Plan Frequency and Duration Frequency of Treatment 2x/Week Duration of Treatment 12 weeks Plan of Care Start Date 12/29/21 Plan of Care End Date 03/31/22 Next Visit Focus/Plan Next Note Type Treatment Note Next Visit Plan Review HEP, updated written handout as needed. Continue with Biodex as tolerated, add PNF multiplanar movements, GH mobs as indicated, manual treatment to surgical scar and biceps tendon. Continue kinesiotape. End with ice/ IFES.
--- NOTE | 2022-02-24 08:17 | PT.OTN ---
Current Diagnoses Pain in left arm (02/24/22) Weakness (02/24/22) Strain of muscle, fascia and tendon of other parts of biceps, left arm, initial encounter (02/24/22) Encounter for other specified surgical aftercare (02/24/22) Physical Therapy Treatment Note PT-OP-A Visit Information Start: 12/28/21 16:41 Freq: Status: Active Protocol: Document 02/24/22 07:31 SP (Rec: 02/24/22 08:21 SP [id number]) Out-Patient Physical Therapy Visit Information Visit Information Visit Type Treatment Note Visit Note Surgery 11/23/21; patient 12 weeks post-op Visit Start Time 07:31 Visit Stop Time 08:17 Total Visit Minutes 46 Visit Number 12 Number of MANAGER FOOD Visits 2 Evaluation Information Evaluation Date 12/29/21 Precautions Precautions Surgery 11/23/21: per Dr. Arellano note standard biceps tendon repair protocol PT-OP-B Current Condition Start: 12/28/21 16:41 Freq: Status: Active Protocol: Document 12/29/21 08:57 SAK (Rec: 12/29/21 09:48 SAK [id number]) Current Condition History of Current Condition Onset Date 11/23/21 Current Complaints left elbow pain, shoulder pain swelling left UE especially hand. History of Current Condition was picking up heavy flat screen TV, heard pop and felt like bicep broke and retracted into his arm. Had surgical repair 11/23/21; [facility] doctor told him a lot of scar tissue had to be cut out, was worried about tearing free so didn't want him to do PT initially. Follow-up appointment 2 weeks ago; [facility] doctor wanted him to do recovery without PT. advised bending and straightening his arm and rotating his arm. Swelling not going down, pain is incredible so asked for PT . Has been doing ROM at elbow as advised and some hand and finger ROM, occasionally trying to reach up overhead. Was told not to lift over a pound, no pushing or pulling. No icing recently because doesn't seem to be helping. 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 The pulleys and UBE in past few tx distroyed my shld withpain so not wanting to perform. PT-OP-H Neuro Start: 12/28/21 16:41 Freq: Status: Active Protocol: Document 12/29/21 08:57 SAK (Rec: 12/30/21 16:51 [facility] [id number]) Sensation Evaluation Gross Sensation Gross Sensation Left UE Impaired Sensation Description Paresthesia PT-OP-J Posture/Palpation/Skin Start: 12/28/21 16:41 Freq: Status: Active Protocol: Document 12/29/21 08:57 SAK (Rec: 12/30/21 16:51 [facility] [id number]) Posture Evaluation Position Sitting Shoulder Posture (L) Rounded Arm Posture (L) Internally Rotated Palpation Assessment Location One Palpation Location left UE Palpation Findings Edema,Muscle Guarding, Tenderness Palpation Details Patient very tender to touch throughout left UE with moderate swelling left forearm and hand. Incisions healing well; anterior elbow mostly closed with immature scar, posterior elbow scar still with steri strips but no signs or symptoms of infection. Skin Assessment Edema Assessment Left Arm Edema Appearance Discolored,Puffy,Taut Incisional Assessment Incision Appearance/Comments as above PT-OP-K Range of Motion Start: 12/28/21 16:41 Freq: Status: Active Protocol: Document 12/29/21 08:57 SAK (Rec: 12/30/21 16:51 [facility] [id number]) Cervical Spine Range of Motion Cervical Spine Active Testing Position Sitting Comments WNL Shoulder Goniometric Range of Motion Shoulder Left Active Shoulder ROM WFL No Flexion 15 External Rotation at 0 degrees Abduction 10 Right Active Shoulder ROM WFL Yes Shoulder ROM Limitations Shoulder ROM Limitations Pain Elbow/Forearm Range of Motion Elbow/Forearm Left Active Elbow Flexion (degrees) 115 Elbow Extension (degrees) 8 Pronation (degrees) 90 Supination (degrees) 22 Right Active Elbow/Forearm ROM WFL Yes Elbow/Forearm ROM Limitations Elbow/Forearm ROM Limitations Soft Tissue Tightness,Pain, Swelling Wrist Goniometric Range of Motion Wrist Left Wrist ROM WFL No Flexion Active (degrees) 15 Flexion Passive (degrees) 10 Right Wrist ROM WFL Yes ROM Limitations Wrist Limitations of Range of Motion Swelling Finger Goniometric Range of Motion Finger alll Comments unable to make a full fist or touch fingers to thumb due to swelling left hand. Finger ROM Limitations Finger ROM Limitations Swelling PT-OP-M Strength Start: 12/28/21 16:41 Freq: Status: Active Protocol: Document 12/29/21 08:57 SAK (Rec: 12/30/21 16:51 SAK [id number]) Shoulder Strength Shoulder Manual Muscle Testing Left Comments not assessed due to recent surgery Right Flexion 5 Normal Extension 5 Normal External Rotation 5 Normal Internal Rotation 5 Normal Horizontal Abduction 5 Normal Horizontal Adduction 5 Normal Elbow/Forearm Strength Elbow and Forearm Manual Muscle Testing Left Comments not assessed due to recent surgery Right Flexion (C6) 5 Normal Extension (C7) 5 Normal Pronation 5 Normal Supination 5 Normal PT-OP-Q Treatments Start: 12/28/21 16:41 Freq: Status: Active Protocol: Document 02/24/22 07:31 SP (Rec: 02/24/22 08:21 SP [id number]) Cardio Equipment Recumbent Elliptical (Oonair) Seat Position 02/24 Other DC due to pain L shld reported last time trialed Therapeutic Exercises Sitting Exercises pully Sitting Exercise Name DC 02/24 Comments pt reported performed last tx and caused shld pain so not doing until ortho Pron/sup Sitting Exercise Name AROM Resistance 2# Reps/Minutes 10x 2 with terminal stretch x 5 Table slide Sitting Exercise Name DIscussed still doing 02/24, pt reported no until see ortho for L shld Comments told have torn RTC not want make worse Standing Exercises tricep press Standing Exercise Name HEP reviewed: neutral wrist and pronated Side bilateral Resistance TB L1>2 Reps/Minutes 10x3 Comments good tricep muscle effort, no pain bicep curl Standing Exercise Name HEP reviewed: Side left Resistance 1# DB Reps/Minutes 5x2 each position Comments updated 02/24: neutral wrist/ sup/pronated Pendulum Standing Exercise Name Fwd/Back, STS, CW, CCW Side left Reps/Minutes 10x ea Comments cues to relax shoulder and elbow Manual Therapy Treatment Soft Tissue Mobilization surgical scar Mobilization Type Myofascial Release Intensity/Depth mod Body Position Hooklying Comments good tolerance Shoulder Body Location L Long head Biceps, pec, UT, scar Mobilization Type Cross-Friction,Myofascial Release,Rolling Intensity/Depth gentle Body Position Hooklying Comments pillow supporting left UE Joint Mobilizations scapulothoracic Joint L PNF L GH jt Direction post, inf Grade II Body Position Hooklying Reps/Duration 5 min Comments no inc pain; distraction to L GH jt w/ gentle oscillations PT-OP-R Modalities Start: 12/28/21 16:41 Freq: Status: Active Protocol: Document 02/22/22 08:12 NBM (Rec: 02/22/22 10:23 NBM [id number]) Hot Pack/Cold Pack Treatment Cold Pack Location left shoulder, elbow Patient Position Hooklying Treatment Duration (minutes) 10 Patient Tolerance Good Comments w/ IFES PT-OP-T Assessment and Plan Start: 12/28/21 16:41 Freq: Status: Active Protocol: Document 02/24/22 07:31 SP (Rec: 02/24/22 08:21 SP [id number]) Physical Therapy Assessment Goals Four Impairment activity tolerance Impairment Quickdash disability index score 60% Short Term Goal (STG) decrease quickdash score to no greater than 40% as measure of improved left UE activity tolerance STG Duration 01/28/22 Custodial Goal (LTG) decrease quickdash score to no greater than 10% as measure of improved left UE activity tolerance and return to usual activities. LTG Duration 03/31/22 Three Impairment Limited ROM and strength left UE Short Term Goal (STG) Patient able to tolerate a progressive HEP following post -op protocol left UE for purposes of ROM and strengthening STG Duration 01/28/22 Custodial Goal (LTG) Patient will demonstrate left UE ROM and strength of at least 4+/5 all muscle groups to allow a return to prior level of function LTG Duration 03/31/22 Two Impairment edema left UE contributing to pain and limited motion Custodial Goal (LTG) Decrease edema left UE to within 1 cm measurements on right to allow normal motion all left UE joints and return to activity LTG Duration 03/31/22 One Impairment pain left UE Impairment as high as 7/10 Short Term Goal (STG) Decrease pain to no greater than 4/10 STG Duration 01/28/22 Home Decorator Goal (LTG) Decrease pain to no greater than 2/10 with all usual activities LTG Duration 03/31/22 Assessment Summary Assessment Pt had red raised skin rash over distal bicep above anterior elbow. Ed pt that is skin irritation and keep K taping off for now until clears can reapply himself shown/ed for support with verbalized understanding. Retaped posterior hand/forearm for edema mgt and provide 2 disposable CPs before left for self assist. Tx focused on HEP review and good tolerance to shld and hand close chain, just muscle tiring. Responded well to scapulothoracic PNF and states performs scap retraction all the time for comfort. Pt stated 6 day gap in PT appts hoping to hear back from ortho and L& I for forward plan. Physical Therapy Plan Frequency and Duration Frequency of Treatment 2x/Week Duration of Treatment 12 weeks Plan of Care Start Date 12/29/21 Plan of Care End Date 03/31/22 Therapeutic Interventions Therapeutic Interventions Aquatic Therapy,Home Exercise Program,Manual Therapy,Patient /Caregiver Education,Self-Care /Home Management,Soft Tissue Mobilization,Taping, Therapeutic Activities, Therapeutic Exercises Modalities Cold Pack/Ice Massage,Electric Stimulation,Hot Packs, Infrared Therapy,Iontophoresis ,Ultrasound Next Visit Focus/Plan Next Note Type Treatment Note Next Visit Plan Review HEP L shld ROM as tolerated. Next tx: add PNF multiplanar movements (supine? ), GH mobs as indicated, manual treatment to surgical scar and biceps tendon. Continue kinesiotape. End with ice/IFES.
--- NOTE | 2022-03-02 19:43 | PT.OTN ---
Current Diagnoses Pain in left arm (03/02/22) Weakness (03/02/22) Strain of muscle, fascia and tendon of other parts of biceps, left arm, initial encounter (03/02/22) Encounter for other specified surgical aftercare (03/02/22) Physical Therapy Treatment Note PT-OP-A Visit Information Start: 12/28/21 16:41 Freq: Status: Active Protocol: Document 03/02/22 08:15 NBM (Rec: 03/02/22 19:43 NBM [id number]) Out-Patient Physical Therapy Visit Information Visit Information Visit Type Treatment Note Visit Note Surgery 11/23/21 Visit Start Time 08:15 Visit Stop Time 09:00 Total Visit Minutes 45 Visit Number 13 Number of GENERAL OPHTHALMOLOGIST Visits 3 PT-OP-B Current Condition Start: 12/28/21 16:41 Freq: Status: Active Protocol: Document 12/29/21 08:57 SAK (Rec: 12/29/21 09:48 SAK [id number]) Current Condition History of Current Condition Onset Date 11/23/21 Current Complaints left elbow pain, shoulder pain swelling left UE especially hand. History of Current Condition was picking up heavy flat screen TV, heard pop and felt like bicep broke and retracted into his arm. Had surgical repair 11/23/21; [facility] told him a lot of scar tissue had to be cut out, was worried about tearing free so didn't want him to do PT initially. Follow-up appointment 2 weeks ago; [facility] doctor wanted him to do recovery without PT. advised bending and straightening his arm and rotating his arm. Swelling not going down, pain is incredible so asked for PT . Has been doing ROM at elbow as advised and some hand and finger ROM, occasionally trying to reach up overhead. Was told not to lift over a pound, no pushing or pulling. No icing recently because doesn't seem to be helping. 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 He did not apply it at home - he wanted to make sure the skin was okay with PT first. He states he can barely move his neck and has not been able to do his exercises but has been icing. He has an MRI for L em tomorrow and a f/u w/ surgeon to figure out what next steps are. PT-OP-H Neuro Start: 12/28/21 16:41 Freq: Status: Active Protocol: Document 12/29/21 08:57 SAK (Rec: 12/30/21 16:51 [facility] [id number]) Sensation Evaluation Gross Sensation Gross Sensation Left UE Impaired Sensation Description Paresthesia PT-OP-J Posture/Palpation/Skin Start: 12/28/21 16:41 Freq: Status: Active Protocol: Document 12/29/21 08:57 SAK (Rec: 12/30/21 16:51 [facility] [id number]) Posture Evaluation Position Sitting Shoulder Posture (L) Rounded Arm Posture (L) Internally Rotated Palpation Assessment Location One Palpation Location left UE Palpation Findings Edema,Muscle Guarding, Tenderness Palpation Details Patient very tender to touch throughout left UE with moderate swelling left forearm and hand. Incisions healing well; anterior elbow mostly closed with immature scar, posterior elbow scar still with steri strips but no signs or symptoms of infection. Skin Assessment Edema Assessment Left Arm Edema Appearance Discolored,Puffy,Taut Incisional Assessment Incision Appearance/Comments as above PT-OP-K Range of Motion Start: 12/28/21 16:41 Freq: Status: Active Protocol: Document 12/29/21 08:57 SAK (Rec: 12/30/21 16:51 [facility] [id number]) Cervical Spine Range of Motion Cervical Spine Active Testing Position Sitting Comments WNL Shoulder Goniometric Range of Motion Shoulder Left Active Shoulder ROM WFL No Flexion 15 External Rotation at 0 degrees Abduction 10 Right Active Shoulder ROM WFL Yes Shoulder ROM Limitations Shoulder ROM Limitations Pain Elbow/Forearm Range of Motion Elbow/Forearm Left Active Elbow Flexion (degrees) 115 Elbow Extension (degrees) 8 Pronation (degrees) 90 Supination (degrees) 22 Right Active Elbow/Forearm ROM WFL Yes Elbow/Forearm ROM Limitations Elbow/Forearm ROM Limitations Soft Tissue Tightness,Pain, Swelling Wrist Goniometric Range of Motion Wrist Left Wrist ROM WFL No Flexion Active (degrees) 15 Flexion Passive (degrees) 10 Right Wrist ROM WFL Yes ROM Limitations Wrist Limitations of Range of Motion Swelling Finger Goniometric Range of Motion Finger alll Comments unable to make a full fist or touch fingers to thumb due to swelling left hand. Finger ROM Limitations Finger ROM Limitations Swelling PT-OP-M Strength Start: 12/28/21 16:41 Freq: Status: Active Protocol: Document 12/29/21 08:57 SAK (Rec: 12/30/21 16:51 SAK [id number]) Shoulder Strength Shoulder Manual Muscle Testing Left Comments not assessed due to recent surgery Right Flexion 5 Normal Extension 5 Normal External Rotation 5 Normal Internal Rotation 5 Normal Horizontal Abduction 5 Normal Horizontal Adduction 5 Normal Elbow/Forearm Strength Elbow and Forearm Manual Muscle Testing Left Comments not assessed due to recent surgery Right Flexion (C6) 5 Normal Extension (C7) 5 Normal Pronation 5 Normal Supination 5 Normal PT-OP-Q Treatments Start: 12/28/21 16:41 Freq: Status: Active Protocol: Document 03/02/22 08:15 NBM (Rec: 03/02/22 19:43 NBM [id number]) Manual Therapy Treatment Soft Tissue Mobilization Retrograde STM Body Location L hand Mobilization Type Other Intensity/Depth Superficial Body Position Hooklying Comments UE supported Shoulder Body Location L Long head Biceps, pec, UT, scar Mobilization Type Cross-Friction,Myofascial Release,Rolling,Strumming, Sustained Pressure Intensity/Depth Moderate Body Position Hooklying Comments pillow supporting left UE Joint Mobilizations L GH jt Direction post, inf Grade II Body Position Hooklying Comments dc'd d/t increased pain w/ very gentle distraction to L GH jt Taping left hand/forearm Body Location left hand/forearm, bicep Type of Tape Kinesio Tape Skin Inspection Intact, no raised bumps. Comments Cleaned w/ adhesive remover and alcohol before applying KT tape today d/t previous skin reaction. fan strip extending into dorsal 2-4th digit to nail bed from base at cubital fossa . Y strip with base distal biceps with 50% stretch to ant GH Self-Care/Home Management Treatment Education Patient Education Pain Management Other Education Pt forgot about diaphragmatic breathing. Reviewed in regards to pain management: alcohol as dehydrating and need for hydration; better pain management options: hydration, ice and diaphragmatic breathing for parasympathetic nervous system activation. PT-OP-R Modalities Start: 12/28/21 16:41 Freq: Status: Active Protocol: Document 03/02/22 08:15 NBM (Rec: 03/02/22 19:43 NB [id number]) Hot Pack/Cold Pack Treatment Cold Pack Location left shoulder, elbow Patient Position Hooklying Treatment Duration (minutes) 10 Patient Tolerance Good Comments IFES declined PT-OP-T Assessment and Plan Start: 12/28/21 16:41 Freq: Status: Active Protocol: Document 03/02/22 08:15 NBM (Rec: 03/02/22 19:43 [facility] [id number]) Physical Therapy Assessment Goals Four Impairment activity tolerance Impairment Quickdash disability index score 60% Short Term Goal (STG) decrease quickdash score to no greater than 40% as measure of improved left UE activity tolerance STG Duration 01/28/22 Detention Goal (LTG) decrease quickdash score to no greater than 10% as measure of improved left UE activity tolerance and return to usual activities. LTG Duration 03/31/22 Three Impairment Limited ROM and strength left UE Short Term Goal (STG) Patient able to tolerate a progressive HEP following post -op protocol left UE for purposes of ROM and strengthening STG Duration 01/28/22 Detention Goal (LTG) Patient will demonstrate left UE ROM and strength of at least 4+/5 all muscle groups to allow a return to prior level of function LTG Duration 03/31/22 Two Impairment edema left UE contributing to pain and limited motion Detention Goal (LTG) Decrease edema left UE to within 1 cm measurements on right to allow normal motion all left UE joints and return to activity LTG Duration 03/31/22 One Impairment pain left UE Impairment as high as 7/10 Short Term Goal (STG) Decrease pain to no greater than 4/10 STG Duration 01/28/22 Detention Goal (LTG) Decrease pain to no greater than 2/10 with all usual activities LTG Duration 03/31/22 Assessment Summary Assessment Pt presents today w/ guarding and increased pain in left upper extremity limiting treatment session, and increased L Upper trapezius muscle overactivation. Pt unable to tolerate gentle L GH joint distraction today. Treatment focus on manual therapy and pain management education. Pt relays understanding of need for adequate hydration for tissue healing, and diaphgragmatic breathing option for pain management. Pt reports decreased pain after manual therapy. 2 disposable CPs provided to pt for self assist during long car ride to work. Physical Therapy Plan Next Visit Focus/Plan Next Note Type Treatment Note Next Visit Plan Check results of MRI and surgeon f/u. Review HEP L shld ROM as tolerated. Next tx: add PNF multiplanar movements (supine? ), GH mobs as indicated, manual treatment to surgical scar and biceps tendon. Continue kinesiotape. End with ice/IFES.
--- NOTE | 2022-03-08 09:15 | PT.OTN ---
Current Diagnoses Pain in left arm (03/10/22) Weakness (03/10/22) Strain of muscle, fascia and tendon of other parts of biceps, left arm, initial encounter (03/10/22) Encounter for other specified surgical aftercare (03/10/22) Physical Therapy Treatment Note PT-OP-A Visit Information Start: 12/28/21 16:41 Freq: Status: Active Protocol: Document 03/08/22 09:00 NB (Rec: 03/10/22 07:29 [facility] [id number]-) Out-Patient Physical Therapy Visit Information Visit Information Visit Type Treatment Note Visit Note Surgery 11/23/21 Visit Start Time 08:15 Visit Stop Time 09:00 Total Visit Minutes 45 Visit Number 15 Number of MATHEMATICS PROFESSOR Visits 1 Evaluation Information Evaluation Date 12/29/21 Precautions Precautions 03/08/22: per Dr. Arellano note dx Adhesive capsulitis - stretch left shoulder in all planes and rotations. He had an injection at our visit on . 03/03/22 MRI impression: 1. Low-grade articular and bursal surface partial thickness tear involving distal supraspinatus extending to musculotendinous junction. Distal infraspinatus tendinosis. No full-thickness rotator cuff tendon rupture. Very mild supraspinatus muscle atrophy. 2. Moderate acromioclavicular joint osteoarthritis. No fracture or dislocation. Small amount of joint effusion and subacromial subdeltoid bursal fluid. 3. Suggestion of subtle superior anterior labral tear at 12 to 1 o'clock position. 4. Moderate grade intrasubstance partial- thickness tear involving proximal intra-articular portion of long head of biceps. PT-OP-B Current Condition Start: 12/28/21 16:41 Freq: Status: Active Protocol: Document 12/29/21 08:57 SAK (Rec: 12/29/21 09:48 SAK [id number]) Current Condition History of Current Condition Onset Date 11/23/21 Current Complaints left elbow pain, shoulder pain swelling left UE especially hand. History of Current Condition was picking up heavy flat screen TV, heard pop and felt like bicep broke and retracted into his arm. Had surgical repair 11/23/21; states doctor told him a lot of scar tissue had to be cut out, was worried about tearing free so didn't want him to do PT initially. Follow-up appointment 2 weeks ago; states doctor wanted him to do recovery without PT. advised bending and straightening his arm and rotating his arm. Swelling not going down, pain is incredible so asked for PT . Has been doing ROM at elbow as advised and some hand and finger ROM, occasionally trying to reach up overhead. Was told not to lift over a pound, no pushing or pulling. No icing recently because doesn't seem to be helping. 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 He states he had MRI 03/[address] Arellano 03/04 and received a steroid injection to his L shoulder and was told not to do anything for a few days. Pt states the injection helped the pain so much. He is finally sleeping better. He states he started happy pills and thinks they're making a difference - he felt really angry before. Pt states the surgeon told him he has adhesive capsulitis also called frozen shoulder and he had three options including being put to sleep and having surgeon move it for him. He chose to pursue PT for frozen shoulder. He was told the shoulder capsule is constricted. Pt reports nothing was said to him about a tear on the MRI. PT-OP-H Neuro Start: 12/28/21 16:41 Freq: Status: Active Protocol: Document 12/29/21 08:57 [facility] (Rec: 12/30/21 16:51 [facility] [id number]) Sensation Evaluation Gross Sensation Gross Sensation Left UE Impaired Sensation Description Paresthesia PT-OP-J Posture/Palpation/Skin Start: 12/28/21 16:41 Freq: Status: Active Protocol: Document 12/29/21 08:57 [facility] (Rec: 12/30/21 16:51 [facility] [id number]) Posture Evaluation Position Sitting Shoulder Posture (L) Rounded Arm Posture (L) Internally Rotated Palpation Assessment Location One Palpation Location left UE Palpation Findings Edema,Muscle Guarding, Tenderness Palpation Details Patient very tender to touch throughout left UE with moderate swelling left forearm and hand. Incisions healing well; anterior elbow mostly closed with immature scar, posterior elbow scar still with steri strips but no signs or symptoms of infection. Skin Assessment Edema Assessment Left Arm Edema Appearance Discolored,Puffy,Taut Incisional Assessment Incision Appearance/Comments as above PT-OP-K Range of Motion Start: 12/28/21 16:41 Freq: Status: Active Protocol: Document 12/29/21 08:57 [facility] (Rec: 12/30/21 16:51 [facility] [id number]) Cervical Spine Range of Motion Cervical Spine Active Testing Position Sitting Comments WNL Shoulder Goniometric Range of Motion Shoulder Left Active Shoulder ROM WFL No Flexion 15 External Rotation at 0 degrees Abduction 10 Right Active Shoulder ROM WFL Yes Shoulder ROM Limitations Shoulder ROM Limitations Pain Elbow/Forearm Range of Motion Elbow/Forearm Left Active Elbow Flexion (degrees) 115 Elbow Extension (degrees) 8 Pronation (degrees) 90 Supination (degrees) 22 Right Active Elbow/Forearm ROM WFL Yes Elbow/Forearm ROM Limitations Elbow/Forearm ROM Limitations Soft Tissue Tightness,Pain, Swelling Wrist Goniometric Range of Motion Wrist Left Wrist ROM WFL No Flexion Active (degrees) 15 Flexion Passive (degrees) 10 Right Wrist ROM WFL Yes ROM Limitations Wrist Limitations of Range of Motion Swelling Finger Goniometric Range of Motion Finger alll Comments unable to make a full fist or touch fingers to thumb due to swelling left hand. Finger ROM Limitations Finger ROM Limitations Swelling PT-OP-M Strength Start: 12/28/21 16:41 Freq: Status: Active Protocol: Document 12/29/21 08:57 [facility] (Rec: 12/30/21 16:51 [facility] [id number]) Shoulder Strength Shoulder Manual Muscle Testing Left Comments not assessed due to recent surgery Right Flexion 5 Normal Extension 5 Normal External Rotation 5 Normal Internal Rotation 5 Normal Horizontal Abduction 5 Normal Horizontal Adduction 5 Normal Elbow/Forearm Strength Elbow and Forearm Manual Muscle Testing Left Comments not assessed due to recent surgery Right Flexion (C6) 5 Normal Extension (C7) 5 Normal Pronation 5 Normal Supination 5 Normal PT-OP-Q Treatments Start: 12/28/21 16:41 Freq: Status: Active Protocol: Document 03/08/22 09:00 [facility] (Rec: 03/10/22 07:29 [facility] [id number]-) Therapeutic Exercises Supine Exercises elbow AROM Supine Exercise Name AROM: flex, ext, pron, supination Side left Equipment Used elbow flexed and extended as tolerated Reps/Minutes x10 Comments good feedback response shoulder PROM Supine Exercise Name Therapist-performed PROM: flexion/scaption/abduction/ER in pain-free range Side left Reps/Minutes ~15 min Comments empty end-feelsvd/t distal pain at supraspinatus, ER very painful Manual Therapy Treatment Soft Tissue Mobilization Shoulder Body Location L Long head Biceps, pec, UT, supraspinatus, subscapularis Mobilization Type Cross-Friction,Myofascial Release,Rolling,Strumming, Sustained Pressure Intensity/Depth Moderate Body Position Hooklying Comments towel roll under distal elbow and pillow supporting left UE Joint Mobilizations L GH jt Direction post Grade II Body Position Hooklying Taping left hand/forearm Body Location left hand/forearm, bicep, RC - not done today d/t skin breakdown Type of Tape Kinesio Tape Skin Inspection indications of skin breakdown throughout taped area, bleeding w/ adhesive Comments indications of skin breakdown throughout taped area, bleeding w/ adhesive removal below L clavicle. fan strip extending into dorsal 2-4th digit to nail bed from base at cubital fossa . Y strip with base distal biceps with 50% stretch to ant GH RC for shoulder support: 3 Y strips Self-Care/Home Management Treatment Education Other Education Educated pt about adhesive capsulitis and discussed MRI results as pt was not aware of tears of L shoulder to supraspinatus, long head biceps tendon, or labrum. Explained shoulder anatomy w/ focus on labrum, supraspinatus , biceps, pec, and coracoid process. MATHEMATICS PROFESSOR to obtain clarification from Dr. Arellano office re: MRI results and adhesive capsulitis diagnosis and contact pt to advise. PT-OP-R Modalities Start: 12/28/21 16:41 Freq: Status: Active Protocol: Document 03/08/22 09:00 NB (Rec: 03/10/22 07:29 [facility] [phone]-) Hot Pack/Cold Pack Treatment Cold Pack Location left shoulder Patient Position Hooklying Treatment Duration (minutes) 10 Patient Tolerance Good PT-OP-T Assessment and Plan Start: 12/28/21 16:41 Freq: Status: Active Protocol: Document 03/08/22 09:00 [facility] (Rec: 03/10/22 07:29 [facility] [phone]-) Physical Therapy Assessment Goals Four Impairment activity tolerance Impairment Quickdash disability index score 60% Short Term Goal (STG) decrease quickdash score to no greater than 40% as measure of improved left UE activity tolerance STG Duration 01/28/22 Longterm Goal (LTG) decrease quickdash score to no greater than 10% as measure of improved left UE activity tolerance and return to usual activities. LTG Duration 03/31/22 Three Impairment Limited ROM and strength left UE Short Term Goal (STG) Patient able to tolerate a progressive HEP following post -op protocol left UE for purposes of ROM and strengthening STG Duration 01/28/22 [place] Goal (LTG) Patient will demonstrate left UE ROM and strength of at least 4+/5 all muscle groups to allow a return to prior level of function LTG Duration 03/31/22 Two Impairment edema left UE contributing to pain and limited motion Longterm Goal (LTG) Decrease edema left UE to within 1 cm measurements on right to allow normal motion all left UE joints and return to activity LTG Duration 03/31/22 One Impairment pain left UE Impairment as high as 7/10 Short Term Goal (STG) Decrease pain to no greater than 4/10 STG Duration 01/28/22 [place] Goal (LTG) Decrease pain to no greater than 2/10 with all usual activities LTG Duration 03/31/22 Assessment Summary Assessment Pt presents w/ greatly improved pain post-injection to L shoulder and new diagnosis of Adhesive capsulitis w/ protocol from Dr Woo Arellano to stretch left shoulder in all planes and rotations. Treatment focus on PROM, manual therapy, and education of frozen shoulder and need for clarification w/ Dr. Arellano office of MRI impression - MATHEMATICS PROFESSOR to obtain clarification from Dr. Arellano office and contact pt to advise. Repetitions of L shoulder PROM is limited by pain to distal supraspinatus, particularly external rotation . Removal of KT tape reveals skin breakdown and one area of bleeding below clavicle - pt states skin breakdown possibly d/t medication. No KT tape applied. Physical Therapy Plan Next Visit Focus/Plan Next Note Type Treatment Note Next Visit Plan Assess skin recovery from KT tape reaction. POC: discuss MRI results and doctor recommendations including any new order. Continue rehab per orders from Dr. Arellano.
--- NOTE | 2022-03-09 13:40 | PT-OP ANOTE ---
Called [facility] Dr. Arellano' office [phone]. Spoke w/ Megan advising need for clarification of adhesive capsulitis dx and MRI findings (L partial thickness tears in supraspinatus, long head of biceps, and labral tear). Megan advised will get clarification and fax back to [facility] [phone].
--- NOTE | 2022-03-10 08:20 | PT.OTN ---
Current Diagnoses Pain in left arm (03/10/22) Weakness (03/10/22) Strain of muscle, fascia and tendon of other parts of biceps, left arm, initial encounter (03/10/22) Encounter for other specified surgical aftercare (03/10/22) Physical Therapy Treatment Note PT-OP-A Visit Information Start: 12/28/21 16:41 Freq: Status: Active Protocol: Document 03/10/22 07:35 SP (Rec: 03/10/22 08:22 SP [id number]) Out-Patient Physical Therapy Visit Information Visit Information Visit Type Treatment Note Visit Note Surgery 11/23/21 Visit Start Time 07:35 Visit Stop Time 08:20 Total Visit Minutes 45 Visit Number 16 Number of STULL HEWER Visits 2 Evaluation Information Evaluation Date 12/29/21 Precautions Precautions 03/08/22: per Dr. Arellano note dx Adhesive capsulitis - stretch left shoulder in all planes and rotations. He had an injection at our visit on . 03/03/22 MRI impression: 1. Low-grade articular and bursal surface partial thickness tear involving distal supraspinatus extending to musculotendinous junction. Distal infraspinatus tendinosis. No full-thickness rotator cuff tendon rupture. Very mild supraspinatus muscle atrophy. 2. Moderate acromioclavicular joint osteoarthritis. No fracture or dislocation. Small amount of joint effusion and subacromial subdeltoid bursal fluid. 3. Suggestion of subtle superior anterior labral tear at 12 to 1 o'clock position. 4. Moderate grade intrasubstance partial- thickness tear involving proximal intra-articular portion of long head of biceps. PT-OP-B Current Condition Start: 12/28/21 16:41 Freq: Status: Active Protocol: Document 12/29/21 08:57 SAK (Rec: 12/29/21 09:48 SAK [id number]) Current Condition History of Current Condition Onset Date 11/23/21 Current Complaints left elbow pain, shoulder pain swelling left UE especially hand. History of Current Condition was picking up heavy flat screen TV, heard pop and felt like bicep broke and retracted into his arm. Had surgical repair 11/23/21; states doctor told him a lot of scar tissue had to be cut out, was worried about tearing free so didn't want him to do PT initially. Follow-up appointment 2 weeks ago; states doctor wanted him to do recovery without PT. advised bending and straightening his arm and rotating his arm. Swelling not going down, pain is incredible so asked for PT . Has been doing ROM at elbow as advised and some hand and finger ROM, occasionally trying to reach up overhead. Was told not to lift over a pound, no pushing or pulling. No icing recently because doesn't seem to be helping. 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 He woke up in alot pain locked up this am lateral L shld so sat up and did pendulum swings . Not doing K taping anymore due to skin reactions, irritation, states disappointed because gave him proximal stability that needs at times during day and not using RUE to support L when needed so doesnt' feel like pull out of body. PT-OP-H Neuro Start: 12/28/21 16:41 Freq: Status: Active Protocol: Document 12/29/21 08:57 SAK (Rec: 12/30/21 16:51 SAK [id number]) Sensation Evaluation Gross Sensation Gross Sensation Left UE Impaired Sensation Description Paresthesia PT-OP-J Posture/Palpation/Skin Start: 12/28/21 16:41 Freq: Status: Active Protocol: Document 12/29/21 08:57 SAK (Rec: 12/30/21 16:51 SAK [id number]) Posture Evaluation Position Sitting Shoulder Posture (L) Rounded Arm Posture (L) Internally Rotated Palpation Assessment Location One Palpation Location left UE Palpation Findings Edema,Muscle Guarding, Tenderness Palpation Details Patient very tender to touch throughout left UE with moderate swelling left forearm and hand. Incisions healing well; anterior elbow mostly closed with immature scar, posterior elbow scar still with steri strips but no signs or symptoms of infection. Skin Assessment Edema Assessment Left Arm Edema Appearance Discolored,Puffy,Taut Incisional Assessment Incision Appearance/Comments as above PT-OP-K Range of Motion Start: 12/28/21 16:41 Freq: Status: Active Protocol: Document 12/29/21 08:57 [facility] (Rec: 12/30/21 16:51 [facility] [id number]) Cervical Spine Range of Motion Cervical Spine Active Testing Position Sitting Comments WNL Shoulder Goniometric Range of Motion Shoulder Left Active Shoulder ROM WFL No Flexion 15 External Rotation at 0 degrees Abduction 10 Right Active Shoulder ROM WFL Yes Shoulder ROM Limitations Shoulder ROM Limitations Pain Elbow/Forearm Range of Motion Elbow/Forearm Left Active Elbow Flexion (degrees) 115 Elbow Extension (degrees) 8 Pronation (degrees) 90 Supination (degrees) 22 Right Active Elbow/Forearm ROM WFL Yes Elbow/Forearm ROM Limitations Elbow/Forearm ROM Limitations Soft Tissue Tightness,Pain, Swelling Wrist Goniometric Range of Motion Wrist Left Wrist ROM WFL No Flexion Active (degrees) 15 Flexion Passive (degrees) 10 Right Wrist ROM WFL Yes ROM Limitations Wrist Limitations of Range of Motion Swelling Finger Goniometric Range of Motion Finger alll Comments unable to make a full fist or touch fingers to thumb due to swelling left hand. Finger ROM Limitations Finger ROM Limitations Swelling PT-OP-M Strength Start: 12/28/21 16:41 Freq: Status: Active Protocol: Document 12/29/21 08:57 [facility] (Rec: 12/30/21 16:51 [facility] [id number]) Shoulder Strength Shoulder Manual Muscle Testing Left Comments not assessed due to recent surgery Right Flexion 5 Normal Extension 5 Normal External Rotation 5 Normal Internal Rotation 5 Normal Horizontal Abduction 5 Normal Horizontal Adduction 5 Normal Elbow/Forearm Strength Elbow and Forearm Manual Muscle Testing Left Comments not assessed due to recent surgery Right Flexion (C6) 5 Normal Extension (C7) 5 Normal Pronation 5 Normal Supination 5 Normal PT-OP-Q Treatments Start: 12/28/21 16:41 Freq: Status: Active Protocol: Document 03/10/22 07:35 SP (Rec: 03/10/22 08:22 SP [id number]) Therapeutic Exercises Sitting Exercises Table slide Sitting Exercise Name FF, scaption, ER Side left Resistance PROM using RUE Reps/Minutes 2 min total Comments range low/painfree tolerance Scapular retraction Sitting Exercise Name Shoulder Blade Squeeze Reps/Minutes 1 x 10 rep w/ 5SH Comments Verbal/tactile cues for slower pace, hold full 5, no UT Standing Exercises UT, LS stretching Standing Exercise Name DIscussed and is doing at home /work Side left Reps/Minutes 30 x2 Comments good feedback response self STMs Standing Exercise Name balll discussed doing and theracane neck/scap good ramon Side left Equipment Used racquetball in sock at wall Reps/Minutes 1 min Comments good feedback response Pendulum Standing Exercise Name HEP Side left Comments good performance stand and sit Manual Therapy Treatment Soft Tissue Mobilization Shoulder Body Location L Long head Biceps, pec, UT, supraspinatus, subscapularis Mobilization Type Cross-Friction,Myofascial Release,Rolling,Strumming, Sustained Pressure Intensity/Depth Moderate Body Position Sidelying Comments towel under arm for support/ alignment, gente pressure with requested feedback tolerance. Joint Mobilizations scapulothoracic Joint L PNF Direction PA w/ superior glide, AP w/ inferior glide Grade II Body Position Sidelying Comments manual and instruction on self scapuar retractions as HEP PT-OP-R Modalities Start: 12/28/21 16:41 Freq: Status: Active Protocol: Document 03/08/22 09:00 [facility] (Rec: 03/10/22 07:29 [facility] [phone]-) Hot Pack/Cold Pack Treatment Cold Pack Location left shoulder Patient Position Hooklying Treatment Duration (minutes) 10 Patient Tolerance Good PT-OP-T Assessment and Plan Start: 12/28/21 16:41 Freq: Status: Active Protocol: Document 03/10/22 07:35 SP (Rec: 03/10/22 08:22 SP [id number]) Physical Therapy Assessment Goals Four Impairment activity tolerance Impairment Quickdash disability index score 60% Short Term Goal (STG) decrease quickdash score to no greater than 40% as measure of improved left UE activity tolerance STG Duration 01/28/22 Fdc Goal (LTG) decrease quickdash score to no greater than 10% as measure of improved left UE activity tolerance and return to usual activities. LTG Duration 03/31/22 Three Impairment Limited ROM and strength left UE Short Term Goal (STG) Patient able to tolerate a progressive HEP following post -op protocol left UE for purposes of ROM and strengthening STG Duration 01/28/22 Fdc Goal (LTG) Patient will demonstrate left UE ROM and strength of at least 4+/5 all muscle groups to allow a return to prior level of function LTG Duration 03/31/22 Two Impairment edema left UE contributing to pain and limited motion Collar Starcher Goal (LTG) Decrease edema left UE to within 1 cm measurements on right to allow normal motion all left UE joints and return to activity LTG Duration 03/31/22 One Impairment pain left UE Impairment as high as 7/10 Short Term Goal (STG) Decrease pain to no greater than 4/10 STG Duration 01/28/22 Collar Starcher Goal (LTG) Decrease pain to no greater than 2/10 with all usual activities LTG Duration 03/31/22 Assessment Summary Assessment Pt sensitive to manual gentle STM pressure and PROM, good response to feedback and lessened pressure/tolerant range, found R sidelying better than supine w/ pillow under L shld. Ed given ok to work on gentle PROM/AAROM self table slides with support and assist of opp UE with good feedback and pendulums helped with decreased approximating pain. Pt reported ordered L shld CP for wear at work and home for comfort pain control, states thinks the ice is to much at times. Physical Therapy Plan Frequency and Duration Frequency of Treatment 2x/Week Duration of Treatment 12 weeks Plan of Care Start Date 12/29/21 Plan of Care End Date 03/31/22 Therapeutic Interventions Therapeutic Interventions Aquatic Therapy,Home Exercise Program,Manual Therapy,Patient /Caregiver Education,Self-Care /Home Management,Soft Tissue Mobilization,Taping, Therapeutic Activities, Therapeutic Exercises Modalities Cold Pack/Ice Massage,Electric Stimulation,Hot Packs, Infrared Therapy,Iontophoresis ,Ultrasound Next Visit Focus/Plan Next Note Type Treatment Note Next Visit Plan DC K taping due to skin reactions to glue/tape last tx . 03/08/22. WIll continue more aggressive ROM/stretching per Dr Arellano updated protocol 03/04 appt and scanned into EMR L adhesive capsulitis. POC: discuss MRI results and doctor recommendations including any new order. Continue rehab per orders from Dr. Arellano..
--- NOTE | 2022-03-16 08:17 | PT.OTN ---
Current Diagnoses Pain in left arm (03/16/22) Weakness (03/16/22) Strain of muscle, fascia and tendon of other parts of biceps, left arm, initial encounter (03/16/22) Encounter for other specified surgical aftercare (03/16/22) Physical Therapy Treatment Note PT-OP-A Visit Information Start: 12/28/21 16:41 Freq: Status: Active Protocol: Document 03/16/22 07:32 SP (Rec: 03/16/22 08:18 SP [id number]) Out-Patient Physical Therapy Visit Information Visit Information Visit Type Treatment Note Visit Note Surgery 11/23/21 Visit Start Time 07:32 Visit Stop Time 08:17 Total Visit Minutes 45 Visit Number 17 Number of DOCUMENT CONTROL SUPERVISOR Visits 3 Evaluation Information Evaluation Date 12/29/21 Precautions Precautions 03/08/22: *Sensitivity reaction to Ktaping, discontinue. 03/08/22: per Dr. Arellano note dx Adhesive capsulitis - stretch left shoulder in all planes and rotations. He had an injection at our visit on . 03/03/22 MRI impression: 1. Low-grade articular and bursal surface partial thickness tear involving distal supraspinatus extending to musculotendinous junction. Distal infraspinatus tendinosis. No full-thickness rotator cuff tendon rupture. Very mild supraspinatus muscle atrophy. 2. Moderate acromioclavicular joint osteoarthritis. No fracture or dislocation. Small amount of joint effusion and subacromial subdeltoid bursal fluid. 3. Suggestion of subtle superior anterior labral tear at 12 to 1 o'clock position. 4. Moderate grade intrasubstance partial- thickness tear involving proximal intra-articular portion of long head of biceps. PT-OP-B Current Condition Start: 12/28/21 16:41 Freq: Status: Active Protocol: Document 12/29/21 08:57 SAK (Rec: 12/29/21 09:48 SAK [id number]) Current Condition History of Current Condition Onset Date 11/23/21 Current Complaints left elbow pain, shoulder pain swelling left UE especially hand. History of Current Condition was picking up heavy flat screen TV, heard pop and felt like bicep broke and retracted into his arm. Had surgical repair 11/23/21; states doctor told him a lot of scar tissue had to be cut out, was worried about tearing free so didn't want him to do PT initially. Follow-up appointment 2 weeks ago; states doctor wanted him to do recovery without PT. advised bending and straightening his arm and rotating his arm. Swelling not going down, pain is incredible so asked for PT . Has been doing ROM at elbow as advised and some hand and finger ROM, occasionally trying to reach up overhead. Was told not to lift over a pound, no pushing or pulling. No icing recently because doesn't seem to be helping. 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 Is compliant with HEP. Trying to keep L elbow moving, gets achy if straight to long. Pt demonstrates holding L elbow into flexion uponarrival and during transfers. Pt reports is taking a baby asprin now and thinks bleeding takes little longer to stop/clot. PT-OP-H Neuro Start: 12/28/21 16:41 Freq: Status: Active Protocol: Document 12/29/21 08:57 [facility] (Rec: 12/30/21 16:51 [facility] [id number]) Sensation Evaluation Gross Sensation Gross Sensation Left UE Impaired Sensation Description Paresthesia PT-OP-J Posture/Palpation/Skin Start: 12/28/21 16:41 Freq: Status: Active Protocol: Document 12/29/21 08:57 SAK (Rec: 12/30/21 16:51 [facility] [id number]) Posture Evaluation Position Sitting Shoulder Posture (L) Rounded Arm Posture (L) Internally Rotated Palpation Assessment Location One Palpation Location left UE Palpation Findings Edema,Muscle Guarding, Tenderness Palpation Details Patient very tender to touch throughout left UE with moderate swelling left forearm and hand. Incisions healing well; anterior elbow mostly closed with immature scar, posterior elbow scar still with steri strips but no signs or symptoms of infection. Skin Assessment Edema Assessment Left Arm Edema Appearance Discolored,Puffy,Taut Incisional Assessment Incision Appearance/Comments as above PT-OP-K Range of Motion Start: 12/28/21 16:41 Freq: Status: Active Protocol: Document 12/29/21 08:57 [facility] (Rec: 12/30/21 16:51 [facility] [id number]) Cervical Spine Range of Motion Cervical Spine Active Testing Position Sitting Comments WNL Shoulder Goniometric Range of Motion Shoulder Left Active Shoulder ROM WFL No Flexion 15 External Rotation at 0 degrees Abduction 10 Right Active Shoulder ROM WFL Yes Shoulder ROM Limitations Shoulder ROM Limitations Pain Elbow/Forearm Range of Motion Elbow/Forearm Left Active Elbow Flexion (degrees) 115 Elbow Extension (degrees) 8 Pronation (degrees) 90 Supination (degrees) 22 Right Active Elbow/Forearm ROM WFL Yes Elbow/Forearm ROM Limitations Elbow/Forearm ROM Limitations Soft Tissue Tightness,Pain, Swelling Wrist Goniometric Range of Motion Wrist Left Wrist ROM WFL No Flexion Active (degrees) 15 Flexion Passive (degrees) 10 Right Wrist ROM WFL Yes ROM Limitations Wrist Limitations of Range of Motion Swelling Finger Goniometric Range of Motion Finger alll Comments unable to make a full fist or touch fingers to thumb due to swelling left hand. Finger ROM Limitations Finger ROM Limitations Swelling PT-OP-M Strength Start: 12/28/21 16:41 Freq: Status: Active Protocol: Document 12/29/21 08:57 [facility] (Rec: 12/30/21 16:51 [facility] [id number]) Shoulder Strength Shoulder Manual Muscle Testing Left Comments not assessed due to recent surgery Right Flexion 5 Normal Extension 5 Normal External Rotation 5 Normal Internal Rotation 5 Normal Horizontal Abduction 5 Normal Horizontal Adduction 5 Normal Elbow/Forearm Strength Elbow and Forearm Manual Muscle Testing Left Comments not assessed due to recent surgery Right Flexion (C6) 5 Normal Extension (C7) 5 Normal Pronation 5 Normal Supination 5 Normal PT-OP-Q Treatments Start: 12/28/21 16:41 Freq: Status: Active Protocol: Document 03/16/22 07:32 SP (Rec: 03/16/22 08:18 SP [id number]) Therapeutic Exercises Supine Exercises chest press Supine Exercise Name HEP reviewed Equipment Used wand Reps/Minutes 10x Comments denied increase in pain shoulder flex Supine Exercise Name HEP review Side bilateral Equipment Used wand Reps/Minutes 10x Comments 115* to flex as tolerated, thumbs up Sitting Exercises ebow flex Sitting Exercise Name AROM flex ext Reps/Minutes 10x Table slide Sitting Exercise Name FF, scaption, ER Side left Resistance AAROM using RUE, ER using wand Reps/Minutes x10 each Comments range low/painfree tolerance Hand Sitting Exercise Name opposition 1-5 Side left Reps/Minutes 1 x 10 rep Comments overpressure for flex and ext, 2-3 limited, others base opp digit. Standing Exercises Pendulum Standing Exercise Name HEP Side left Comments good performance stand and sit Manual Therapy Treatment Soft Tissue Mobilization surgical scar Mobilization Type Myofascial Release Intensity/Depth mod Body Position Hooklying Comments good tolerance and discussed self application. Shoulder Body Location L Long head Biceps, pec, UT, supraspinatus, subscapularis Mobilization Type Cross-Friction,Myofascial Release,Rolling,Strumming, Sustained Pressure Intensity/Depth Moderate Body Position Sidelying Comments towel under arm for support/ alignment, gente pressure with requested feedback tolerance. Joint Mobilizations scapulothoracic Joint L PNF Direction PA w/ superior glide, AP w/ inferior glide Grade II Body Position Sidelying Comments manual and instruction on self scapuar retractions as HEP L GH jt Direction post Grade II Body Position Hooklying PT-OP-R Modalities Start: 12/28/21 16:41 Freq: Status: Active Protocol: Document 03/08/22 09:00 [facility] (Rec: 03/10/22 07:29 [facility] [phone]-) Hot Pack/Cold Pack Treatment Cold Pack Location left shoulder Patient Position Hooklying Treatment Duration (minutes) 10 Patient Tolerance Good PT-OP-T Assessment and Plan Start: 12/28/21 16:41 Freq: Status: Active Protocol: Document 03/16/22 07:32 SP (Rec: 03/16/22 08:18 SP [id number]) Physical Therapy Assessment Goals Four Impairment activity tolerance Impairment Quickdash disability index score 60% Short Term Goal (STG) decrease quickdash score to no greater than 40% as measure of improved left UE activity tolerance STG Duration 01/28/22 Email Designer Goal (LTG) decrease quickdash score to no greater than 10% as measure of improved left UE activity tolerance and return to usual activities. LTG Duration 03/31/22 Three Impairment Limited ROM and strength left UE Short Term Goal (STG) Patient able to tolerate a progressive HEP following post -op protocol left UE for purposes of ROM and strengthening STG Duration 01/28/22 Email Designer Goal (LTG) Patient will demonstrate left UE ROM and strength of at least 4+/5 all muscle groups to allow a return to prior level of function LTG Duration 03/31/22 Two Impairment edema left UE contributing to pain and limited motion Mcfp Goal (LTG) Decrease edema left UE to within 1 cm measurements on right to allow normal motion all left UE joints and return to activity LTG Duration 03/31/22 One Impairment pain left UE Impairment as high as 7/10 Short Term Goal (STG) Decrease pain to no greater than 4/10 STG Duration 01/28/22 Mcfp Goal (LTG) Decrease pain to no greater than 2/10 with all usual activities LTG Duration 03/31/22 Assessment Summary Assessment Pt's L shld measurements PROM: FF 124*, ABD 90 *, ER at approx 30 deg ABD 35*. AROM FF 115*. Improvement in FF 105 deg AAROM wand today supine but states painful 7/10 90 deg to end feel tolerated. Pt good response to HEP and encouraged to progress ROM per ortho note. Pt's L hand swelling going down reviewed increase range opposition AROM 2-5 MCP to base 1st MCP to allow gripping opening jars and carrying items. Instructed to allow L arm hang at side and arm swing when walking to allow passive decrease bicep tightness and guarding. He understands and will incorporate self scar STMs hasn't initiated at home yet. Demonstrates full elbow extension rested on table in supine. Discussed be sure physician aware of clotting taking little longer on newly added baby aspirin and not concerned. Physical Therapy Plan Frequency and Duration Frequency of Treatment 2x/Week Duration of Treatment 12 weeks Plan of Care Start Date 12/29/21 Plan of Care End Date 03/31/22 Therapeutic Interventions Therapeutic Interventions Aquatic Therapy,Home Exercise Program,Manual Therapy,Patient /Caregiver Education,Self-Care /Home Management,Soft Tissue Mobilization,Taping, Therapeutic Activities, Therapeutic Exercises Modalities Cold Pack/Ice Massage,Electric Stimulation,Hot Packs, Infrared Therapy,Iontophoresis ,Ultrasound Next Visit Focus/Plan Next Note Type Treatment Note Next Visit Plan WIll continue more proactive ROM/stretching per Dr Arellano updated protocol 03/04 appt and scanned into EMR 03/09/22 L adhesive capsulitis.
--- NOTE | 2022-03-19 08:15 | PT.OTN ---
Addendum entered and electronically signed by Mayra Baker PTA 03/23/22 08:01: Pt is L&I pt and will need approval for more appts if continuing tx after POC exp 03/31. Original Note: Current Diagnoses Pain in left arm (03/19/22) Weakness (03/19/22) Strain of muscle, fascia and tendon of other parts of biceps, left arm, initial encounter (03/19/22) Encounter for other specified surgical aftercare (03/19/22) Physical Therapy Treatment Note PT-OP-A Visit Information Start: 12/28/21 16:41 Freq: Status: Active Protocol: Document 03/19/22 07:31 SP (Rec: 03/19/22 08:18 SP [id number]) Out-Patient Physical Therapy Visit Information Visit Information Visit Type Treatment Note Visit Note PN/ POC due by 03/31/22 Visit Start Time 07:31 Visit Stop Time 08:15 Total Visit Minutes 44 Visit Number 18 Number of BUSINESS AND MARKETING TEACHER Visits 4 Evaluation Information Evaluation Date 12/29/21 Precautions Precautions 03/08/22: *Sensitivity reaction to Ktaping, discontinue. 03/04/22: per Dr. Arellano note dx Adhesive capsulitis scanned in (03/10/22)- stretch left shoulder in all planes and rotations. He had an injection at our visit on 03/04/22. 03/03/22 MRI impression: 1. Low-grade articular and bursal surface partial thickness tear involving distal supraspinatus extending to musculotendinous junction. Distal infraspinatus tendinosis. No full-thickness rotator cuff tendon rupture. Very mild supraspinatus muscle atrophy. 2. Moderate acromioclavicular joint osteoarthritis. No fracture or dislocation. Small amount of joint effusion and subacromial subdeltoid bursal fluid. 3. Suggestion of subtle superior anterior labral tear at 12 to 1 o'clock position. 4. Moderate grade intrasubstance partial- thickness tear involving proximal intra-articular portion of long head of biceps. 11/23/21 bicep repair. PT-OP-B Current Condition Start: 12/28/21 16:41 Freq: Status: Active Protocol: Document 12/29/21 08:57 SAK (Rec: 12/29/21 09:48 SAK [id number]) Current Condition History of Current Condition Onset Date 11/23/21 Current Complaints left elbow pain, shoulder pain swelling left UE especially hand. History of Current Condition was picking up heavy flat screen TV, heard pop and felt like bicep broke and retracted into his arm. Had surgical repair 11/23/21; [facility] doctor told him a lot of scar tissue had to be cut out, was worried about tearing free so didn't want him to do PT initially. Follow-up appointment 2 weeks ago; [facility] doctor wanted him to do recovery without PT. advised bending and straightening his arm and rotating his arm. Swelling not going down, pain is incredible so asked for PT . Has been doing ROM at elbow as advised and some hand and finger ROM, occasionally trying to reach up overhead. Was told not to lift over a pound, no pushing or pulling. No icing recently because doesn't seem to be helping. 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 PT-OP-H Neuro Start: 12/28/21 16:41 Freq: Status: Active Protocol: Document 12/29/21 08:57 SAK (Rec: 12/30/21 16:51 SAK [id number]) Sensation Evaluation Gross Sensation Gross Sensation Left UE Impaired Sensation Description Paresthesia PT-OP-J Posture/Palpation/Skin Start: 12/28/21 16:41 Freq: Status: Active Protocol: Document 12/29/21 08:57 SAK (Rec: 12/30/21 16:51 SAK [id number]) Posture Evaluation Position Sitting Shoulder Posture (L) Rounded Arm Posture (L) Internally Rotated Palpation Assessment Location One Palpation Location left UE Palpation Findings Edema,Muscle Guarding, Tenderness Palpation Details Patient very tender to touch throughout left UE with moderate swelling left forearm and hand. Incisions healing well; anterior elbow mostly closed with immature scar, posterior elbow scar still with steri strips but no signs or symptoms of infection. Skin Assessment Edema Assessment Left Arm Edema Appearance Discolored,Puffy,Taut Incisional Assessment Incision Appearance/Comments as above PT-OP-K Range of Motion Start: 12/28/21 16:41 Freq: Status: Active Protocol: Document 12/29/21 08:57 [facility] (Rec: 12/30/21 16:51 SAK [id number]) Cervical Spine Range of Motion Cervical Spine Active Testing Position Sitting Comments WNL Shoulder Goniometric Range of Motion Shoulder Left Active Shoulder ROM WFL No Flexion 15 External Rotation at 0 degrees Abduction 10 Right Active Shoulder ROM WFL Yes Shoulder ROM Limitations Shoulder ROM Limitations Pain Elbow/Forearm Range of Motion Elbow/Forearm Left Active Elbow Flexion (degrees) 115 Elbow Extension (degrees) 8 Pronation (degrees) 90 Supination (degrees) 22 Right Active Elbow/Forearm ROM WFL Yes Elbow/Forearm ROM Limitations Elbow/Forearm ROM Limitations Soft Tissue Tightness,Pain, Swelling Wrist Goniometric Range of Motion Wrist Left Wrist ROM WFL No Flexion Active (degrees) 15 Flexion Passive (degrees) 10 Right Wrist ROM WFL Yes ROM Limitations Wrist Limitations of Range of Motion Swelling Finger Goniometric Range of Motion Finger alll Comments unable to make a full fist or touch fingers to thumb due to swelling left hand. Finger ROM Limitations Finger ROM Limitations Swelling PT-OP-M Strength Start: 12/28/21 16:41 Freq: Status: Active Protocol: Document 12/29/21 08:57 [facility] (Rec: 12/30/21 16:51 [facility] [id number]) Shoulder Strength Shoulder Manual Muscle Testing Left Comments not assessed due to recent surgery Right Flexion 5 Normal Extension 5 Normal External Rotation 5 Normal Internal Rotation 5 Normal Horizontal Abduction 5 Normal Horizontal Adduction 5 Normal Elbow/Forearm Strength Elbow and Forearm Manual Muscle Testing Left Comments not assessed due to recent surgery Right Flexion (C6) 5 Normal Extension (C7) 5 Normal Pronation 5 Normal Supination 5 Normal PT-OP-Q Treatments Start: 12/28/21 16:41 Freq: Status: Active Protocol: Document 03/19/22 07:31 SP (Rec: 03/19/22 08:18 SP [id number]) Therapeutic Exercises Supine Exercises serratus punch Equipment Used wand Reps/Minutes 10x Comments denied increase in pain shoulder flex Supine Exercise Name HEP review Side bilateral Equipment Used wand Reps/Minutes 3x6 reps Comments 131* to flex as tolerated, thumbs up shoulder PROM Supine Exercise Name Therapist-performed PROM: flexion/scaption/abduction/ER in pain-free range Side left Reps/Minutes ~15 min Comments empty end-feelsvd/t distal pain at supraspinatus, ER very painful Sidelying Exercises open book Sidelying Exercise Name L Sitting Exercises pully Sitting Exercise Name FF 102 deg, scaption Comments reported pain end range 7/10 and goes away when lowers it. Standing Exercises shld ext, rows Standing Exercise Name added to HEP Side left Resistance TB #1 Reps/Minutes x8 each Comments cued scap retraction fac to inhibit pec/anterior shld discomfort- improved tricep press Standing Exercise Name HEP reviewed: neutral wrist and pronated Side bilateral Resistance TB L2 Reps/Minutes 2x10 Comments good tricep muscle effort, no pain Manual Therapy Treatment Soft Tissue Mobilization surgical scar Mobilization Type Myofascial Release Intensity/Depth mod Body Position Hooklying Comments good tolerance and discussed self application. Shoulder Body Location L Long head Biceps, pec, UT, supraspinatus, subscapularis, distal mid lat Mobilization Type Cross-Friction,Myofascial Release,Rolling,Strumming, Sustained Pressure Intensity/Depth Moderate Body Position Sidelying Comments sensitive SA, Lat, Subscapfeedback tolerance. Joint Mobilizations partridge protocol Joint L shld modified scapulothoracic Joint L PNF Direction PA w/ superior glide, AP w/ inferior glide Grade II Body Position Sidelying Comments manual and instruction on self scapuar retractions as HEP L GH jt Direction post Grade II Body Position Hooklying Self-Care/Home Management Treatment Education Patient Education Body Mechanics,Home Exercise Program,Posture Other Education initiated: MIRELLA anton hand on head, resisted rows, tricep ext. PT-OP-R Modalities Start: 12/28/21 16:41 Freq: Status: Active Protocol: Document 03/08/22 09:00 NBM (Rec: 03/10/22 07:29 NB [id number]-) Hot Pack/Cold Pack Treatment Cold Pack Location left shoulder Patient Position Hooklying Treatment Duration (minutes) 10 Patient Tolerance Good PT-OP-T Assessment and Plan Start: 12/28/21 16:41 Freq: Status: Active Protocol: Document 03/19/22 07:31 SP (Rec: 03/19/22 08:18 SP [id number]) Physical Therapy Assessment Goals Four Impairment activity tolerance Impairment Quickdash disability index score 60% Short Term Goal (STG) decrease quickdash score to no greater than 40% as measure of improved left UE activity tolerance STG Duration 01/28/22 Pedal Assembler Goal (LTG) decrease quickdash score to no greater than 10% as measure of improved left UE activity tolerance and return to usual activities. LTG Duration 03/31/22 Three Impairment Limited ROM and strength left UE Short Term Goal (STG) Patient able to tolerate a progressive HEP following post -op protocol left UE for purposes of ROM and strengthening STG Duration 01/28/22 Pedal Assembler Goal (LTG) Patient will demonstrate left UE ROM and strength of at least 4+/5 all muscle groups to allow a return to prior level of function LTG Duration 03/31/22 Two Impairment edema left UE contributing to pain and limited motion Mcfp Goal (LTG) Decrease edema left UE to within 1 cm measurements on right to allow normal motion all left UE joints and return to activity LTG Duration 03/31/22 One Impairment pain left UE Impairment as high as 7/10 Short Term Goal (STG) Decrease pain to no greater than 4/10 STG Duration 01/28/22 Pedal Assembler Goal (LTG) Decrease pain to no greater than 2/10 with all usual activities LTG Duration 03/31/22 Progress Towards Goals Progress Towards Goals Progressing Toward Goals Progress Comments Gained 6 deg FF AAROM w/ wand today. Assessment Summary Assessment Pt better segmental scapulohumeral dissociation mobility this tx post manual. Pt is making gains in FF ROM by 6 deg supine but still limited in ER and ABD with pain and guarding but improved decrease guarding with open book and gentle resisted rows and tricep ext. Declined modalities, states has CP in car puts on on ride to work. Physical Therapy Plan Frequency and Duration Frequency of Treatment 2x/Week Duration of Treatment 12 weeks Plan of Care Start Date 12/29/21 Plan of Care End Date 03/31/22 Therapeutic Interventions Therapeutic Interventions Aquatic Therapy,Home Exercise Program,Manual Therapy,Patient /Caregiver Education,Self-Care /Home Management,Soft Tissue Mobilization,Taping, Therapeutic Activities, Therapeutic Exercises Modalities Cold Pack/Ice Massage,Electric Stimulation,Hot Packs, Infrared Therapy,Iontophoresis ,Ultrasound Next Visit Focus/Plan Next Note Type Treatment Note Next Visit Plan REcheck ROM, open book and progression HEP at home. POC: WIll continue more aggressive ROM/stretching per Dr Arellano updated protocol 03/04 appt and scanned into EMR L shld adhesive capsulitis.
--- NOTE | 2022-03-23 12:23 | PT.OTN ---
Current Diagnoses Pain in left arm (03/23/22) Weakness (03/23/22) Strain of muscle, fascia and tendon of other parts of biceps, left arm, initial encounter (03/23/22) Encounter for other specified surgical aftercare (03/23/22) Physical Therapy Treatment Note PT-OP-A Visit Information Start: 12/28/21 16:41 Freq: Status: Active Protocol: Document 03/23/22 11:20 LRN (Rec: 03/23/22 12:22 LRN [id number]) Out-Patient Physical Therapy Visit Information Visit Information Visit Type Treatment Note Visit Start Time 11:20 Visit Stop Time 12:00 Total Visit Minutes 40 Visit Number 19 Evaluation Information Evaluation Date 12/29/21 Precautions Precautions 03/08/22: *Sensitivity reaction to Ktaping, discontinue. 03/04/22: per Dr. Arellano note dx Adhesive capsulitis scanned in (03/10/22)- stretch left shoulder in all planes and rotations. He had an injection at our visit on 03/04/22. 03/03/22 MRI impression: 1. Low-grade articular and bursal surface partial thickness tear involving distal supraspinatus extending to musculotendinous junction. Distal infraspinatus tendinosis. No full-thickness rotator cuff tendon rupture. Very mild supraspinatus muscle atrophy. 2. Moderate acromioclavicular joint osteoarthritis. No fracture or dislocation. Small amount of joint effusion and subacromial subdeltoid bursal fluid. 3. Suggestion of subtle superior anterior labral tear at 12 to 1 o'clock position. 4. Moderate grade intrasubstance partial- thickness tear involving proximal intra-articular portion of long head of biceps. 11/23/21 bicep repair. PT-OP-B Current Condition Start: 12/28/21 16:41 Freq: Status: Active Protocol: Document 12/29/21 08:57 SAK (Rec: 12/29/21 09:48 SAK [id number]) Current Condition History of Current Condition Onset Date 11/23/21 Current Complaints left elbow pain, shoulder pain swelling left UE especially hand. History of Current Condition was picking up heavy flat screen TV, heard pop and felt like bicep broke and retracted into his arm. Had surgical repair 11/23/21; states doctor told him a lot of scar tissue had to be cut out, was worried about tearing free so didn't want him to do PT initially. Follow-up appointment 2 weeks ago; states doctor wanted him to do recovery without PT. advised bending and straightening his arm and rotating his arm. Swelling not going down, pain is incredible so asked for PT . Has been doing ROM at elbow as advised and some hand and finger ROM, occasionally trying to reach up overhead. Was told not to lift over a pound, no pushing or pulling. No icing recently because doesn't seem to be helping. 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 States his ms tore off the L elbow and had it repaired 11/23/21. Now he has dx of frozen shoulder and he reports referring physician thinks his tear in minor and will heal, but he has locked shoulder. Cortisone injection 03/04/22. Was doing yardwork and used cutters to cut weeds. PT-OP-H Neuro Start: 12/28/21 16:41 Freq: Status: Active Protocol: Document 12/29/21 08:57 [facility] (Rec: 12/30/21 16:51 [facility] [id number]) Sensation Evaluation Gross Sensation Gross Sensation Left UE Impaired Sensation Description Paresthesia PT-OP-J Posture/Palpation/Skin Start: 12/28/21 16:41 Freq: Status: Active Protocol: Document 12/29/21 08:57 SAK (Rec: 12/30/21 16:51 SAK [id number]) Posture Evaluation Position Sitting Shoulder Posture (L) Rounded Arm Posture (L) Internally Rotated Palpation Assessment Location One Palpation Location left UE Palpation Findings Edema,Muscle Guarding, Tenderness Palpation Details Patient very tender to touch throughout left UE with moderate swelling left forearm and hand. Incisions healing well; anterior elbow mostly closed with immature scar, posterior elbow scar still with steri strips but no signs or symptoms of infection. Skin Assessment Edema Assessment Left Arm Edema Appearance Discolored,Puffy,Taut Incisional Assessment Incision Appearance/Comments as above PT-OP-K Range of Motion Start: 12/28/21 16:41 Freq: Status: Active Protocol: Document 03/23/22 11:20 LRN (Rec: 03/23/22 12:22 LRN [id number]) Shoulder Goniometric Range of Motion Shoulder Left Active Shoulder ROM WFL No Testing Position Supine Flexion 125 Abduction 57 External Rotation at 45 degrees 12 Abduction Internal Rotation Behind Back (text) Posterolateral L hip Comments Sitting L shoulder ~AROM: flex 70 deg's, AB 60 deg's, ER 40 deg's, IR - reaches to posterolateral L hip. PT-OP-M Strength Start: 12/28/21 16:41 Freq: Status: Active Protocol: Document 03/23/22 11:20 LRN (Rec: 03/23/22 12:22 LRN [id number]) Shoulder Strength Shoulder Manual Muscle Testing Left Comments Generally 2/5, limited by pain and weakness. PT-OP-Q Treatments Start: 12/28/21 16:41 Freq: Status: Active Protocol: Document 03/23/22 11:20 LRN (Rec: 03/23/22 12:22 LR [id number]) Therapeutic Exercises Supine Exercises Passive mvmts btn stretching Supine Exercise Name Shoulder rolls, shakes, circles, elbow flex/ext, painfree active ER/iR Side left Reps/Minutes 6' ER stretch Supine Exercise Name Pt Long hold Shdr ER/IR stretch Side left Reps/Minutes 14' Comments Arm in 57 deg AB. ER is 12 deg's. serratus punch Supine Exercise Name Serratus punch to ceiling Side bilateral Equipment Used wand Reps/Minutes 15x Comments No increase in pain elbow AROM Supine Exercise Name AROM: flex, ext, pron, supination Side left Equipment Used 2# Reps/Minutes 10x 2 Comments good feedback response shoulder flex Supine Exercise Name Shoulder Flex stretch (HEP) Side left Equipment Used wand Reps/Minutes 10SH x 10 Comments 125 to flex as tolerated, thumbs up shoulder PROM Supine Exercise Name PT gently assisting pt with ER /IR/AB Side left Reps/Minutes 10' Comments Elbow on towel roll, long resting periods between stretches Sitting Exercises Shoulder IR stretch Sitting Exercise Name Hand behind back stretch Side left Reps/Minutes 3' PT-OP-R Modalities Start: 12/28/21 16:41 Freq: Status: Active Protocol: Document 03/08/22 09:00 [facility] (Rec: 03/10/22 07:29 [facility] [id number]-) Hot Pack/Cold Pack Treatment Cold Pack Location left shoulder Patient Position Hooklying Treatment Duration (minutes) 10 Patient Tolerance Good PT-OP-T Assessment and Plan Start: 12/28/21 16:41 Freq: Status: Active Protocol: Document 03/23/22 11:20 LRN (Rec: 03/23/22 12:22 LRN [id number]) Physical Therapy Assessment Rehab Potential Rehabilitation Potential Good Evaluation Complexity Number of Personal Factors/Comorbidities 1-2 Number of Body Systems Impaired 3 Clinical Presentation at Evaluation Evolving Impairments Impairments Activity Tolerance,Edema,ROM, Strength Goals Four Impairment activity tolerance Impairment Quickdash disability index score 60% Short Term Goal (STG) decrease quickdash score to no greater than 40% as measure of improved left UE activity tolerance STG Duration 04/22/22 Alf Goal (LTG) decrease quickdash score to no greater than 10% as measure of improved left UE activity tolerance and return to usual activities. LTG Duration 05/22/22 Three Impairment Limited ROM and strength left UE Short Term Goal (STG) Patient able to tolerate a progressive HEP following post -op protocol left UE for purposes of ROM and strengthening STG Duration 04/22/22 Alf Goal (LTG) Patient will demonstrate left UE ROM and strength of at least 4+/5 all muscle groups to allow a return to prior level of function LTG Duration 05/22/22 Two Impairment edema left UE contributing to pain and limited motion Client Services Administrator Goal (LTG) Decrease edema left UE to within 1 cm measurements on right to allow normal motion all left UE joints and return to activity LTG Duration 05/22/22 One Impairment pain left UE Impairment as high as 7/10 Short Term Goal (STG) Decrease pain to no greater than 4/10 STG Duration 04/22/22 Alf Goal (LTG) Decrease pain to no greater than 2/10 with all usual activities LTG Duration 05/22/22 Assessment Summary Assessment Pt primary therapist not available for reassessment. Overall it appears the pt has made some improvement since the initial evaluation. He is not able to lift his L arm above shoulder height due to pain and weakness. Further therapy might help to improve his L shoulder mobility, but the pt will need to be consistent and diligent in stretching of his shoulder. We will continue his rehab unless otherwise recommended. Physical Therapy Plan Frequency and Duration Frequency of Treatment 2x/Week Duration of Treatment 12 weeks Plan of Care Start Date 03/23/22 Plan of Care End Date 05/22/22 Therapeutic Interventions Therapeutic Interventions Aquatic Therapy,Home Exercise Program,Manual Therapy,Patient /Caregiver Education,Self-Care /Home Management,Soft Tissue Mobilization,Therapeutic Activities,Therapeutic Exercises Modalities Cold Pack/Ice Massage,Electric Stimulation,Hot Packs, Infrared Therapy,Iontophoresis ,Ultrasound Next Visit Focus/Plan Next Note Type Treatment Note Next Visit Plan Primary therapist to recheck ROM. Focus on improving shldr ER/IR mobility with long duration/low intensity stretches. POC: WIll continue more aggressive ROM/stretching per Dr Arellano updated protocol 03/04 appt and scanned into EMR L shld adhesive capsulitis.
--- NOTE | 2022-03-23 12:23 | PT.OPPOC ---
Physical, Occupational & Speech Therapy At [facility] Current Diagnoses Pain in left arm (03/23/22) Weakness (03/23/22) Strain of muscle, fascia and tendon of other parts of biceps, left arm, initial encounter (03/23/22) Encounter for other specified surgical aftercare (03/23/22) Visit Care Team Role Provider Type Radha Brito MD Family Provider Physician Primary Care Provider Specialty: Family Practice Address: [address] [place] [address], [facility] [place], [address] Email: [email or web address] Alex Arellano MD Attending Provider Physician Referring Provider Specialty: Orthopedics Orthopedic Surgery Address: [address] [place] [address], [id number] Email: [email or web address] Plan Of Care PT-OP-T Assessment and Plan Start: 12/28/21 16:41 Freq: Status: Active Protocol: Document 03/23/22 11:20 LRN (Rec: 03/23/22 12:22 LRN [id number]) Physical Therapy Assessment Rehab Potential Rehabilitation Potential Good Evaluation Complexity Number of Personal Factors/Comorbidities 1-2 Number of Body Systems Impaired 3 Clinical Presentation at Evaluation Evolving Impairments Impairments Activity Tolerance,Edema,ROM, Strength Goals Four Impairment activity tolerance Impairment Quickdash disability index score 60% Short Term Goal (STG) decrease quickdash score to no greater than 40% as measure of improved left UE activity tolerance STG Duration 04/22/22 Penitentiary Goal (LTG) decrease quickdash score to no greater than 10% as measure of improved left UE activity tolerance and return to usual activities. LTG Duration 05/22/22 Three Impairment Limited ROM and strength left UE Short Term Goal (STG) Patient able to tolerate a progressive HEP following post -op protocol left UE for purposes of ROM and strengthening STG Duration 04/22/22 Antenna Specialist Goal (LTG) Patient will demonstrate left UE ROM and strength of at least 4+/5 all muscle groups to allow a return to prior level of function LTG Duration 05/22/22 Two Impairment edema left UE contributing to pain and limited motion Penitentiary Goal (LTG) Decrease edema left UE to within 1 cm measurements on right to allow normal motion all left UE joints and return to activity LTG Duration 05/22/22 One Impairment pain left UE Impairment as high as 7/10 Short Term Goal (STG) Decrease pain to no greater than 4/10 STG Duration 04/22/22 Antenna Specialist Goal (LTG) Decrease pain to no greater than 2/10 with all usual activities LTG Duration 05/22/22 Assessment Summary Assessment Pt primary therapist not available for reassessment. Overall it appears the pt has made some improvement since the initial evaluation. He is not able to lift his L arm above shoulder height due to pain and weakness. Further therapy might help to improve his L shoulder mobility, but the pt will need to be consistent and diligent in stretching of his shoulder. We will continue his rehab unless otherwise recommended. Physical Therapy Plan Frequency and Duration Frequency of Treatment 2x/Week Duration of Treatment 12 weeks Plan of Care Start Date 03/23/22 Plan of Care End Date 05/22/22 Therapeutic Interventions Therapeutic Interventions Aquatic Therapy,Home Exercise Program,Manual Therapy,Patient /Caregiver Education,Self-Care /Home Management,Soft Tissue Mobilization,Therapeutic Activities,Therapeutic Exercises Modalities Cold Pack/Ice Massage,Electric Stimulation,Hot Packs, Infrared Therapy,Iontophoresis ,Ultrasound Next Visit Focus/Plan Next Note Type Treatment Note Next Visit Plan Primary therapist to recheck ROM. Focus on improving shldr ER/IR mobility with long duration/low intensity stretches. POC: WIll continue more aggressive ROM/stretching per Dr Arellano updated protocol 03/04 appt and scanned into EMR L shld adhesive capsulitis. Plan of Care Dates Plan of Care Start Date 03/23/22 Plan of Care End Date 05/22/22 Electronically Signed by: Savita Oliva, PT 03/23/22 [id number] If you are in agreement with this Plan of Care, please return a signed and dated copy. I have reviewed this Plan of Care and certify that the skilled therapy services above are required to meet the patient?s needs. Physician Signature Date Printed Name and Credentials Clinical Instructor Signature Printed Name and Credentials
--- NOTE | 2022-03-25 11:37 | PT-OP ANOTE ---
Pt cancelled early this am for 0900 appt, tested + COVID and unable to attend appt today.
--- NOTE | 2022-04-01 08:08 | PT-OP ANOTE ---
cancelled via [employer]
--- NOTE | 2022-04-06 11:57 | PT.OTN ---
Current Diagnoses Pain in left arm (04/06/22) Weakness (04/06/22) Strain of muscle, fascia and tendon of other parts of biceps, left arm, initial encounter (04/06/22) Encounter for other specified surgical aftercare (04/06/22) Physical Therapy Treatment Note PT-OP-A Visit Information Start: 12/28/21 16:41 Freq: Status: Active Protocol: Document 04/06/22 09:05 RACQUEL (Rec: 04/06/22 09:47 NB [id number]) Out-Patient Physical Therapy Visit Information Visit Information Visit Type Treatment Note Visit Start Time 09:03 Visit Stop Time 09:45 Total Visit Minutes 42 Visit Number 20 Number of ENGINEER AND GEOLOGIST Visits 1 Precautions Precautions 03/08/22: *Sensitivity reaction to Ktaping, discontinue. 03/04/22: per Dr. Arellano note dx Adhesive capsulitis scanned in (03/10/22)- stretch left shoulder in all planes and rotations. He had an injection at our visit on 03/04/22. 03/03/22 MRI impression: 1. Low-grade articular and bursal surface partial thickness tear involving distal supraspinatus extending to musculotendinous junction. Distal infraspinatus tendinosis. No full-thickness rotator cuff tendon rupture. Very mild supraspinatus muscle atrophy. 2. Moderate acromioclavicular joint osteoarthritis. No fracture or dislocation. Small amount of joint effusion and subacromial subdeltoid bursal fluid. 3. Suggestion of subtle superior anterior labral tear at 12 to 1 o'clock position. 4. Moderate grade intrasubstance partial- thickness tear involving proximal intra-articular portion of long head of biceps. 11/23/21 bicep repair. PT-OP-B Current Condition Start: 12/28/21 16:41 Freq: Status: Active Protocol: Document 12/29/21 08:57 SAK (Rec: 12/29/21 09:48 SAK [id number]) Current Condition History of Current Condition Onset Date 11/23/21 Current Complaints left elbow pain, shoulder pain swelling left UE especially hand. History of Current Condition was picking up heavy flat screen TV, heard pop and felt like bicep broke and retracted into his arm. Had surgical repair 11/23/21; states doctor told him a lot of scar tissue had to be cut out, was worried about tearing free so didn't want him to do PT initially. Follow-up appointment 2 weeks ago; states doctor wanted him to do recovery without PT. advised bending and straightening his arm and rotating his arm. Swelling not going down, pain is incredible so asked for PT . Has been doing ROM at elbow as advised and some hand and finger ROM, occasionally trying to reach up overhead. Was told not to lift over a pound, no pushing or pulling. No icing recently because doesn't seem to be helping. 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 He had to cancel some appts because he caught covid but didn't have flu symptoms. He has not heard back from surgeon's office for clarification of MRI findings and plans to stop by today. He 's been sleeping much better and able to sleep on his L shoulder at times. He is using his arm more at work reaching for stuff up high. PT-OP-H Neuro Start: 12/28/21 16:41 Freq: Status: Active Protocol: Document 12/29/21 08:57 [facility] (Rec: 12/30/21 16:51 [facility] [id number]) Sensation Evaluation Gross Sensation Gross Sensation Left UE Impaired Sensation Description Paresthesia PT-OP-J Posture/Palpation/Skin Start: 12/28/21 16:41 Freq: Status: Active Protocol: Document 12/29/21 08:57 [facility] (Rec: 12/30/21 16:51 [facility] [id number]) Posture Evaluation Position Sitting Shoulder Posture (L) Rounded Arm Posture (L) Internally Rotated Palpation Assessment Location One Palpation Location left UE Palpation Findings Edema,Muscle Guarding, Tenderness Palpation Details Patient very tender to touch throughout left UE with moderate swelling left forearm and hand. Incisions healing well; anterior elbow mostly closed with immature scar, posterior elbow scar still with steri strips but no signs or symptoms of infection. Skin Assessment Edema Assessment Left Arm Edema Appearance Discolored,Puffy,Taut Incisional Assessment Incision Appearance/Comments as above PT-OP-K Range of Motion Start: 12/28/21 16:41 Freq: Status: Active Protocol: Document 03/23/22 11:20 LRN (Rec: 03/23/22 12:22 LRN [id number]) Shoulder Goniometric Range of Motion Shoulder Left Active Shoulder ROM WFL No Testing Position Supine Flexion 125 Abduction 57 External Rotation at 45 degrees 12 Abduction Internal Rotation Behind Back (text) Posterolateral L hip Comments Sitting L shoulder ~AROM: flex 70 deg's, AB 60 deg's, ER 40 deg's, IR - reaches to posterolateral L hip. PT-OP-M Strength Start: 12/28/21 16:41 Freq: Status: Active Protocol: Document 03/23/22 11:20 LRN (Rec: 03/23/22 12:22 LRN [id number]) Shoulder Strength Shoulder Manual Muscle Testing Left Comments Generally 2/5, limited by pain and weakness. PT-OP-Q Treatments Start: 12/28/21 16:41 Freq: Status: Active Protocol: Document 04/06/22 09:05 NBM (Rec: 04/06/22 09:47 NBM [id number]) Therapeutic Exercises Supine Exercises Passive mvmts btn stretching Supine Exercise Name Shoulder rolls, shakes, circles, elbow flex/ext, painfree active ER/iR Side left ER stretch Supine Exercise Name Pt Long hold Shdr ER/IR stretch Side left Reps/Minutes 14' serratus punch Supine Exercise Name Serratus punch to ceiling Side bilateral Equipment Used wand Reps/Minutes 15x Comments No increase in pain shoulder AROM Reps/Minutes 1 x 8 Comments R hand assisting L shoulder flexion at wrist Sitting Exercises Shoulder IR stretch Sitting Exercise Name Hand behind back stretch Side left Equipment Used long towel Reps/Minutes 3' Comments switched from sitting to standing Manual Therapy Treatment Soft Tissue Mobilization Shoulder Body Location L Long head Biceps, pec, supraspinatus Mobilization Type Cross-Friction,Myofascial Release,Rolling,Strumming, Sustained Pressure Intensity/Depth Moderate Body Position Hooklying Comments w/ towel roll under L elbow; post- continuous ultrasound Joint Mobilizations L GH jt Direction post Grade II Body Position Hooklying Reps/Duration 3 x 10 s Comments good feedback response PT-OP-R Modalities Start: 12/28/21 16:41 Freq: Status: Active Protocol: Document 04/06/22 09:05 [facility] (Rec: 04/06/22 09:47 [facility] [id number]) Ultrasound Therapy Treatment Left Shoulder Treatment Duration (minutes) 9 Patient Position Hooklying Coupling Medium Ultrasound Gel Applicator Size (cm2) 5 Mode Setting Continuous Duty Cycle 100% Intensity Setting (w/cm2) 1.5 Comments 8 min w/ L supraspinatus distal insertion and and Biceps long head focus, 1 min w/ L pec focus. Good feedback response PT-OP-T Assessment and Plan Start: 12/28/21 16:41 Freq: Status: Active Protocol: Document 04/06/22 09:05 [facility] (Rec: 04/06/22 09:47 [facility] [id number]) Physical Therapy Assessment Goals Four Impairment activity tolerance Impairment Quickdash disability index score 60% Short Term Goal (STG) decrease quickdash score to no greater than 40% as measure of improved left UE activity tolerance STG Duration 04/22/22 Longterm Goal (LTG) decrease quickdash score to no greater than 10% as measure of improved left UE activity tolerance and return to usual activities. LTG Duration 05/22/22 Three Impairment Limited ROM and strength left UE Short Term Goal (STG) Patient able to tolerate a progressive HEP following post -op protocol left UE for purposes of ROM and strengthening STG Duration 04/22/22 Longterm Goal (LTG) Patient will demonstrate left UE ROM and strength of at least 4+/5 all muscle groups to allow a return to prior level of function LTG Duration 05/22/22 Two Impairment edema left UE contributing to pain and limited motion Longterm Goal (LTG) Decrease edema left UE to within 1 cm measurements on right to allow normal motion all left UE joints and return to activity LTG Duration 05/22/22 One Impairment pain left UE Impairment as high as 7/10 Short Term Goal (STG) Decrease pain to no greater than 4/10 STG Duration 04/22/22 Engineering Model Maker Goal (LTG) Decrease pain to no greater than 2/10 with all usual activities LTG Duration 05/22/22 Assessment Summary Assessment Pt presents today after recovering from COVID and continues to demonstrate progress w/ left upper extremity range of motion, decreased left upper thoracic guarding and decreased pain. Pain continues to persist more locally around distal insertion of supraspinatus w/ left shoulder flexion and horizontal abduction. Treatment focus on stretching, manual therapy, and continuous ultrasound to promote tissue healing. Palpable tightness of L pectorals has decreased overall and further improves with manual therapy this session. Pt will report reponse to ultrasound at next visit. Physical Therapy Plan Next Visit Focus/Plan Next Note Type Treatment Note Next Visit Plan Check if surgeon provided MRI findings clarification to pt. Primary therapist to recheck ROM. Focus on improving shldr ER/IR mobility with long duration/low intensity stretches. POC: WIll continue more aggressive ROM/stretching per Dr Arellano updated protocol 03/04 appt and scanned into EMR L shld adhesive capsulitis.
--- NOTE | 2022-04-12 17:00 | PT.OTN ---
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 03/04/22: per Dr. Arellano note dx Adhesive capsulitis scanned in (03/10/22)- stretch left shoulder in all planes and rotations. He had an injection at our visit on 03/04/22. 03/03/22 MRI impression: 1. Low-grade articular and bursal surface partial thickness tear involving distal supraspinatus extending to musculotendinous junction. Distal infraspinatus tendinosis. No full-thickness rotator cuff tendon rupture. Very mild supraspinatus muscle atrophy. 2. Moderate acromioclavicular joint osteoarthritis. No fracture or dislocation. Small amount of joint effusion and subacromial subdeltoid bursal fluid. 3. Suggestion of subtle superior anterior labral tear at 12 to 1 o'clock position. 4. Moderate grade intrasubstance partial- thickness tear involving proximal intra-articular portion of long head of biceps. 11/23/21 bicep repair. PT-OP-B Current Condition Start: 12/28/21 16:41 Freq: Status: Active Protocol: Document 12/29/21 08:57 [facility] (Rec: 12/29/21 09:48 [facility] [id number]) Current Condition History of Current Condition Onset Date 11/23/21 Current Complaints left elbow pain, shoulder pain swelling left UE especially hand. History of Current Condition was picking up heavy flat screen TV, heard pop and felt like bicep broke and retracted into his arm. Had surgical repair 11/23/21; states doctor told him a lot of scar tissue had to be cut out, was worried about tearing free so didn't want him to do PT initially. Follow-up appointment 2 weeks ago; states doctor wanted him to do recovery without PT. advised bending and straightening his arm and rotating his arm. Swelling not going down, pain is incredible so asked for PT . Has been doing ROM at elbow as advised and some hand and finger ROM, occasionally trying to reach up overhead. Was told not to lift over a pound, no pushing or pulling. No icing recently because doesn't seem to be helping. 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 Arellano tomorrow. Reports he continues to see improvement in his left UE. There are still work related activities he is unable to do including reaching overhead, crawling into awkward spaces, and turning valves, all of which he normally performs as a part of his job. PT-OP-H Neuro Start: 12/28/21 16:41 Freq: Status: Active Protocol: Document 12/29/21 08:57 [facility] (Rec: 12/30/21 16:51 [facility] [id number]) Sensation Evaluation Gross Sensation Gross Sensation Left UE Impaired Sensation Description Paresthesia PT-OP-J Posture/Palpation/Skin Start: 12/28/21 16:41 Freq: Status: Active Protocol: Document 12/29/21 08:57 [facility] (Rec: 12/30/21 16:51 [facility] [id number]) Posture Evaluation Position Sitting Shoulder Posture (L) Rounded Arm Posture (L) Internally Rotated Palpation Assessment Location One Palpation Location left UE Palpation Findings Edema,Muscle Guarding, Tenderness Palpation Details Patient very tender to touch throughout left UE with moderate swelling left forearm and hand. Incisions healing well; anterior elbow mostly closed with immature scar, posterior elbow scar still with steri strips but no signs or symptoms of infection. Skin Assessment Edema Assessment Left Arm Edema Appearance Discolored,Puffy,Taut Incisional Assessment Incision Appearance/Comments as above PT-OP-K Range of Motion Start: 12/28/21 16:41 Freq: Status: Active Protocol: Document 03/23/22 11:20 [facility] (Rec: 03/23/22 12:22 [facility] [id number]) Shoulder Goniometric Range of Motion Shoulder Left Active Shoulder ROM WFL No Testing Position Supine Flexion 125 Abduction 57 External Rotation at 45 degrees 12 Abduction Internal Rotation Behind Back (text) Posterolateral L hip Comments Sitting L shoulder ~AROM: flex 70 deg's, AB 60 deg's, ER 40 deg's, IR - reaches to posterolateral L hip. PT-OP-M Strength Start: 12/28/21 16:41 Freq: Status: Active Protocol: Document 03/23/22 11:20 [facility] (Rec: 03/23/22 12:22 [facility] [id number]) Shoulder Strength Shoulder Manual Muscle Testing Left Comments Generally 2/5, limited by pain and weakness. PT-OP-Q Treatments Start: 12/28/21 16:41 Freq: Status: Active Protocol: Document 04/12/22 08:49 [facility] (Rec: 04/12/22 09:50 [facility] [id number]) Therapeutic Exercises Supine Exercises Passive mvmts btn stretching Supine Exercise Name Shoulder rolls, shakes, circles, elbow flex/ext, painfree active ER/iR Side left ER stretch Supine Exercise Name Pt Long hold Shdr ER/IR stretch Side left Reps/Minutes 14' serratus punch Supine Exercise Name Serratus punch to ceiling Side bilateral Equipment Used wand Reps/Minutes 15x Comments No increase in pain shoulder AROM Reps/Minutes 1 x 8 Comments R hand assisting L shoulder flexion at wrist Sitting Exercises Shoulder IR stretch Sitting Exercise Name Hand behind back stretch Side left Equipment Used long towel Reps/Minutes 3' Comments standing pully Sitting Exercise Name flexion, scaption Comments denied pain, stretch only Standing Exercises shld ext, rows Side left Resistance TB #2 Reps/Minutes 10x Comments cues for scapular activation Manual Therapy Treatment Soft Tissue Mobilization Shoulder Body Location L Long head Biceps, pec, supraspinatus Mobilization Type Cross-Friction,Myofascial Release,Rolling,Strumming, Sustained Pressure Intensity/Depth Moderate Body Position Hooklying Comments w/ towel roll under L elbow; post- continuous ultrasound Joint Mobilizations L GH jt Direction post Grade II Body Position Hooklying Reps/Duration 3 x 10 s Comments good feedback response PT-OP-R Modalities Start: 12/28/21 16:41 Freq: Status: Active Protocol: Document 04/12/22 08:49 [facility] (Rec: 04/12/22 09:50 [facility] [id number]) Ultrasound Therapy Treatment Left Shoulder Treatment Duration (minutes) 9 Patient Position Hooklying Coupling Medium Ultrasound Gel Applicator Size (cm2) 5 Mode Setting Continuous Duty Cycle 100% Intensity Setting (w/cm2) 1.5 Comments 8 min w/ L supraspinatus distal insertion and and Biceps long head focus, 1 min w/ L pec focus. Good feedback response PT-OP-T Assessment and Plan Start: 12/28/21 16:41 Freq: Status: Active Protocol: Document 04/12/22 08:49 [facility] (Rec: 04/12/22 09:50 [facility] [id number]) Physical Therapy Assessment Goals Four Impairment activity tolerance Impairment Quickdash disability index score 60% Short Term Goal (STG) decrease quickdash score to no greater than 40% as measure of improved left UE activity tolerance 04/12/22: goal met. Score 30% STG Duration goal met [employer] Goal (LTG) decrease quickdash score to no greater than 10% as measure of improved left UE activity tolerance and return to usual activities. LTG Duration 05/22/22 Three Impairment Limited ROM and strength left UE Short Term Goal (STG) Patient able to tolerate a progressive HEP following post -op protocol left UE for purposes of ROM and strengthening 04/12/22: goal met, ongoing progression STG Duration goal met [employer] Goal (LTG) Patient will demonstrate left UE ROM and strength of at least 4+/5 all muscle groups to allow a return to prior level of function 04/12/22: left shoulder strength 3-/5, elbow 4/5. LTG Duration 05/22/22 Two Impairment edema left UE contributing to pain and limited motion [employer] Goal (LTG) Decrease edema left UE to within 1 cm measurements on right to allow normal motion all left UE joints and return to activity 04/12/22: mostly met, excellent progress LTG Duration 05/22/22 One Impairment pain left UE Impairment as high as 7/10 Short Term Goal (STG) Decrease pain to no greater than 4/10 04/12/22: goal met, today reports pain 4/10 STG Duration goal met [employer] Goal (LTG) Decrease pain to no greater than 2/10 with all usual activities LTG Duration 05/22/22 Assessment Summary Assessment Improved left shoulder function as noted by QuickDash score improved to 30%. AROM/PROM: flexion 126/144, abduction 109/114,ER 35/52, IR 58/64 reaches to SI joint, hor ab 80, hor ad WNL forearm sup 64. Patient continues to progress with improving left elbow ROM and strength. Left elbow and forearm ROM WNL except for supination. See ROM measurements for shoulder above. Functional strength and ROM left shoulder not yet sufficient to allow patient to reach behind his back and fully overhead for ADL's, and limits his ability to do all aspects of his job including turning valves, crawling into awkward spaces, and reaching overhead. Physical Therapy Plan Frequency and Duration Frequency of Treatment 2x/Week Duration of treatment (weeks) 8 Plan of Care Start Date 03/23/22 Plan of Care End Date 06/27/22 Therapeutic Interventions Therapeutic Interventions Aquatic Therapy,Home Exercise Program,Manual Therapy,Patient /Caregiver Education,Self-Care /Home Management,Soft Tissue Mobilization,Therapeutic Activities,Therapeutic Exercises Modalities Cold Pack/Ice Massage,Electric Stimulation,Hot Packs, Infrared Therapy,Iontophoresis ,Ultrasound Next Visit Focus/Plan Next Note Type Treatment Note Next Visit Plan Continue progression of left elbow and shoulder ROM and strengthening pending any new recommendations/orders from Dr Woo Arellano. Functional strengthening for job related duties as tolerated.
--- NOTE | 2022-04-14 09:00 | PT.OTN ---
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 History of Current Condition was picking up heavy flat screen TV, heard pop and felt like bicep broke and retracted into his arm. Had surgical [facility]23/21[facility] him a lot of scar tissue had to be cut out, was worried about tearing free so didn't want him to do PT initially. Follow-up appointment 2 weeks ago; [facility] wanted him to do recovery without PT. advised bending and straightening his arm and rotating his arm. Swelling not going down, pain is incredible so asked for PT . Has been doing ROM at elbow as advised and some hand and finger ROM, occasionally trying to reach up overhead. Was told not to lift over a pound, no pushing or pulling. No icing recently because doesn't seem to be helping. 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 Has follow up again with Dr Butler 17. Pt feels week by week getting better range. Patient Reported Progress Improving PT-OP-H Neuro Start: 12/28/21 16:41 Freq: Status: Active Protocol: Document 12/29/21 08:57 [facility] (Rec: 12/30/21 16:51 [facility] [id number]) Sensation Evaluation Gross Sensation Gross Sensation Left UE Impaired Sensation Description Paresthesia PT-OP-J Posture/Palpation/Skin Start: 12/28/21 16:41 Freq: Status: Active Protocol: Document 12/29/21 08:57 [facility] (Rec: 12/30/21 16:51 [facility] [id number]) Posture Evaluation Position Sitting Shoulder Posture (L) Rounded Arm Posture (L) Internally Rotated Palpation Assessment Location One Palpation Location left UE Palpation Findings Edema,Muscle Guarding, Tenderness Palpation Details Patient very tender to touch throughout left UE with moderate swelling left forearm and hand. Incisions healing well; anterior elbow mostly closed with immature scar, posterior elbow scar still with steri strips but no signs or symptoms of infection. Skin Assessment Edema Assessment Left Arm Edema Appearance Discolored,Puffy,Taut Incisional Assessment Incision Appearance/Comments as above PT-OP-K Range of Motion Start: 12/28/21 16:41 Freq: Status: Active Protocol: Document 03/23/22 11:20 [facility] (Rec: 03/23/22 12:22 [facility] [id number]) Shoulder Goniometric Range of Motion Shoulder Left Active Shoulder ROM WFL No Testing Position Supine Flexion 125 Abduction 57 External Rotation at 45 degrees 12 Abduction Internal Rotation Behind Back (text) Posterolateral L hip Comments Sitting L shoulder ~AROM: flex 70 deg's, AB 60 deg's, ER 40 deg's, IR - reaches to posterolateral L hip. PT-OP-M Strength Start: 12/28/21 16:41 Freq: Status: Active Protocol: Document 03/23/22 11:20 [facility] (Rec: 03/23/22 12:22 [facility] [id number]) Shoulder Strength Shoulder Manual Muscle Testing Left Comments Generally 2/5, limited by pain and weakness. PT-OP-Q Treatments Start: 12/28/21 16:41 Freq: Status: Active Protocol: Document 04/14/22 08:21 [facility] (Rec: 04/14/22 09:04 SP [id number]) Therapeutic Exercises Supine Exercises ER stretch Supine Exercise Name Pt Long hold Shdr ER/IR stretch Side left Resistance PROM Equipment Used towel under arm Reps/Minutes 5 reps 20 sec hold Comments manual 42 deg elbow AROM Supine Exercise Name PROM Side left Reps/Minutes 10x 2 Comments good feedback response Sidelying Exercises open book Sidelying Exercise Name HEP review Side left Resistance AROM Reps/Minutes x10 reps Comments cued x1 head turn with arm, good feedback stretch end feel range Sitting Exercises Shoulder IR stretch Sitting Exercise Name (standing) Side left Resistance AAROM (lat pelvis>mid L buttocks progress) Equipment Used long towel behind back, mirror for self corrections shld level Reps/Minutes 15 sec hold w/ breathes+ tolerated x5 Comments cued across pelvis before can assist up back! pully Sitting Exercise Name (04/14/22) flexion 139 deg, scaption 110 deg Side left Reps/Minutes x10 each direction Comments denied pain, stretch only Standing Exercises wall slide Standing Exercise Name wall walking doorway Side left Equipment Used slider sheet Reps/Minutes 10x 5s hold Manual Therapy Treatment Soft Tissue Mobilization surgical scar Mobilization Type Myofascial Release Intensity/Depth mod Body Position Hooklying Comments good pliability Shoulder Body Location L Long head Biceps, pec, supraspinatus Mobilization Type Cross-Friction,Myofascial Release,Rolling,Strumming, Sustained Pressure Intensity/Depth Moderate Body Position Hooklying Comments w/ towel roll under L elbow; post- continuous ultrasound Joint Mobilizations L GH jt Direction post Grade II Body Position Hooklying Reps/Duration 3 x 10 s Comments good feedback response PT-OP-R Modalities Start: 12/28/21 16:41 Freq: Status: Active Protocol: Document 04/14/22 08:21 [facility] (Rec: 04/14/22 09:04 SP [id number]) Ultrasound Therapy Treatment Left Shoulder Treatment Duration (minutes) 8 Patient Position Hooklying Coupling Medium Ultrasound Gel Applicator Size (cm2) 5 Mode Setting Continuous Duty Cycle 100% Intensity Setting (w/cm2) 1.5 Comments 6 min w/ L supraspinatus distal insertion and and Biceps long head focus, 2 min w/ L pec focus. Good feedback response PT-OP-T Assessment and Plan Start: 12/28/21 16:41 Freq: Status: Active Protocol: Document 04/14/22 08:21 [facility] (Rec: 04/14/22 09:04 SP [id number]) Physical Therapy Assessment Goals Four Impairment activity tolerance Impairment Quickdash disability index score 60% Short Term Goal (STG) decrease quickdash score to no greater than 40% as measure of improved left UE activity tolerance 04/12/22: goal met. Score 30% STG Duration goal met Sc[employer] Woman Goal (LTG) decrease quickdash score to no greater than 10% as measure of improved left UE activity tolerance and return to usual activities. LTG Duration 05/22/22 Three Impairment Limited ROM and strength left UE Short Term Goal (STG) Patient able to tolerate a progressive HEP following post -op protocol left UE for purposes of ROM and strengthening 04/12/22: goal met, ongoing progression STG Duration goal met Sc[employer] Woman Goal (LTG) Patient will demonstrate left UE ROM and strength of at least 4+/5 all muscle groups to allow a return to prior level of function 04/12/22: left shoulder strength 3-/5, elbow 4/5. LTG Duration 05/22/22 Two Impairment edema left UE contributing to pain and limited motion Mcfp Goal (LTG) Decrease edema left UE to within 1 cm measurements on right to allow normal motion all left UE joints and return to activity 04/12/22: mostly met, excellent progress LTG Duration 05/22/22 One Impairment pain left UE Impairment as high as 7/10 Short Term Goal (STG) Decrease pain to no greater than 4/10 04/12/22: goal met, today reports pain 4/10 STG Duration goal met Sc[employer] Woman Goal (LTG) Decrease pain to no greater than 2/10 with all usual activities LTG Duration 05/22/22 Assessment Summary Assessment Pt good feedback response to ther ex and stretching progression, cues for ER/ IR for progression in proper form /alignment. Physical Therapy Plan Frequency and Duration Frequency of Treatment 2x/Week Duration of treatment (weeks) 8 Plan of Care Start Date 03/23/22 Plan of Care End Date 07/01/22 Therapeutic Interventions Therapeutic Interventions Aquatic Therapy,Home Exercise Program,Manual Therapy,Patient /Caregiver Education,Self-Care /Home Management,Soft Tissue Mobilization,Therapeutic Activities,Therapeutic Exercises Modalities Cold Pack/Ice Massage,Electric Stimulation,Hot Packs, Infrared Therapy,Iontophoresis ,Ultrasound Next Visit Focus/Plan Next Note Type Treatment Note Next Visit Plan Continue progression of left elbow and shoulder ROM and strengthening pending any new recommendations/orders from Dr Woo Arellano. Functional strengthening for job related duties as tolerated.
--- NOTE | 2022-04-20 09:01 | PT.OTN ---
Current Diagnoses Pain in left arm (04/20/22) Weakness (04/20/22) Strain of muscle, fascia and tendon of other parts of biceps, left arm, initial encounter (04/20/22) Encounter for other specified surgical aftercare (04/20/22) Physical Therapy Treatment Note PT-OP-A Visit Information Start: 12/28/21 16:41 Freq: Status: Active Protocol: Document 04/20/22 08:07 SAK (Rec: 04/20/22 09:01 SAK [id number]) Out-Patient Physical Therapy Visit Information Visit Information Visit Type Treatment Note Visit Start Time 08:15 Visit Stop Time 09:00 Total Visit Minutes 45 Visit Number 23 Number of ACID TESTER Visits 0 Evaluation Information Evaluation Date 12/29/21 Precautions Precautions 03/08/22: *Sensitivity reaction to Ktaping, discontinue. 03/04/22: per Dr. Arellano note dx Adhesive capsulitis scanned in (03/10/22)- stretch left shoulder in all planes and rotations. He had an injection at our visit on 03/04/22. 03/03/22 MRI impression: 1. Low-grade articular and bursal surface partial thickness tear involving distal supraspinatus extending to musculotendinous junction. Distal infraspinatus tendinosis. No full-thickness rotator cuff tendon rupture. Very mild supraspinatus muscle atrophy. 2. Moderate acromioclavicular joint osteoarthritis. No fracture or dislocation. Small amount of joint effusion and subacromial subdeltoid bursal fluid. 3. Suggestion of subtle superior anterior labral tear at 12 to 1 o'clock position. 4. Moderate grade intrasubstance partial- thickness tear involving proximal intra-articular portion of long head of biceps. 11/23/21 bicep repair. PT-OP-B Current Condition Start: 12/28/21 16:41 Freq: Status: Active Protocol: Document 12/29/21 08:57 SAK (Rec: 12/29/21 09:48 SAK [id number]) Current Condition History of Current Condition Onset Date 11/23/21 Current Complaints left elbow pain, shoulder pain swelling left UE especially hand. History of Current Condition was picking up heavy flat screen TV, heard pop and felt like bicep broke and retracted into his arm. Had surgical repair 11/23/21; states doctor told him a lot of scar tissue had to be cut out, was worried about tearing free so didn't want him to do PT initially. Follow-up appointment 2 weeks ago; states doctor wanted him to do recovery without PT. advised bending and straightening his arm and rotating his arm. Swelling not going down, pain is incredible so asked for PT . Has been doing ROM at elbow as advised and some hand and finger ROM, occasionally trying to reach up overhead. Was told not to lift over a pound, no pushing or pulling. No icing recently because doesn't seem to be helping. 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 Sees doctor . Catches himself reaching up into a cupbord to get something without thinking about it, can sleep on left side. PT-OP-H Neuro Start: 12/28/21 16:41 Freq: Status: Active Protocol: Document 12/29/21 08:57 [facility] (Rec: 12/30/21 16:51 [facility] [id number]) Sensation Evaluation Gross Sensation Gross Sensation Left UE Impaired Sensation Description Paresthesia PT-OP-J Posture/Palpation/Skin Start: 12/28/21 16:41 Freq: Status: Active Protocol: Document 12/29/21 08:57 [facility] (Rec: 12/30/21 16:51 [facility] [id number]) Posture Evaluation Position Sitting Shoulder Posture (L) Rounded Arm Posture (L) Internally Rotated Palpation Assessment Location One Palpation Location left UE Palpation Findings Edema,Muscle Guarding, Tenderness Palpation Details Patient very tender to touch throughout left UE with moderate swelling left forearm and hand. Incisions healing well; anterior elbow mostly closed with immature scar, posterior elbow scar still with steri strips but no signs or symptoms of infection. Skin Assessment Edema Assessment Left Arm Edema Appearance Discolored,Puffy,Taut Incisional Assessment Incision Appearance/Comments as above PT-OP-K Range of Motion Start: 12/28/21 16:41 Freq: Status: Active Protocol: Document 03/23/22 11:20 LRN (Rec: 03/23/22 12:22 LRN [id number]) Shoulder Goniometric Range of Motion Shoulder Left Active Shoulder ROM WFL No Testing Position Supine Flexion 125 Abduction 57 External Rotation at 45 degrees 12 Abduction Internal Rotation Behind Back (text) Posterolateral L hip Comments Sitting L shoulder ~AROM: flex 70 deg's, AB 60 deg's, ER 40 deg's, IR - reaches to posterolateral L hip. PT-OP-M Strength Start: 12/28/21 16:41 Freq: Status: Active Protocol: Document 03/23/22 11:20 LRN (Rec: 03/23/22 12:22 LRN [id number]) Shoulder Strength Shoulder Manual Muscle Testing Left Comments Generally 2/5, limited by pain and weakness. PT-OP-Q Treatments Start: 12/28/21 16:41 Freq: Status: Active Protocol: Document 04/20/22 08:07 SAK (Rec: 04/20/22 09:01 SAK [id number]) Cardio Equipment Upper Body Ergometer (UBE) Duration (Minutes) 6 RPM 120 Seat Position 12 Height 2 Other cues for pain-free, stop if has pain, denied pain Therapeutic Exercises Supine Exercises ER stretch Supine Exercise Name Pt Long hold Shdr ER/IR stretch Side left Resistance PROM Equipment Used towel under arm Reps/Minutes 5 reps 20 sec hold Comments manual 51 deg shoulder flex Supine Exercise Name holding band between hands Side left Resistance L1 band shoulder PROM Side left Reps/Minutes 5 min Sidelying Exercises open book Sidelying Exercise Name HEP review Side bilateral Resistance AROM Reps/Minutes x10 reps Comments cued x1 head turn with arm, good feedback stretch end feel range Sitting Exercises valve turn Resistance manual light Equipment Used BAPS board on lap Reps/Minutes 10x 5 each direction holding at side hand walk on rail Resistance yellow band Reps/Minutes 10 ft each direction Comments cues for scap activation, pain -free shld ext Sitting Exercise Name seated facing away Equipment Used L2 TB Reps/Minutes 10x blue flexbar Sitting Exercise Name twist Reps/Minutes 10x flexbar Sitting Exercise Name elbow at side, scapula engaged , fwd/bck, side to side Equipment Used red flexbar Reps/Minutes 30 sec x 2 ea Shoulder IR stretch Sitting Exercise Name (standing) Side left Resistance AAROM (lat pelvis>mid L buttocks progress) Equipment Used long towel behind back, mirror for self corrections shld level Reps/Minutes 15 sec hold w/ breathes+ tolerated x5 Comments cued across pelvis before can assist up back! pully Sitting Exercise Name 04/20/22 flexion 144 deg, scaption 140 deg Side left Reps/Minutes x10 each direction Comments denied pain, stretch only Standing Exercises wall slide Standing Exercise Name wall walking doorway Side left Equipment Used slider sheet Reps/Minutes 10x 5s hold Manual Therapy Treatment Soft Tissue Mobilization Shoulder Body Location L Long head Biceps, pec, supraspinatus Mobilization Type Cross-Friction,Myofascial Release,Rolling,Strumming, Sustained Pressure Intensity/Depth Moderate Body Position Hooklying Comments w/ towel roll under L elbow; post- continuous ultrasound Joint Mobilizations L GH jt Direction post Grade II Body Position Hooklying Reps/Duration 3 x 10 s Comments good feedback response PT-OP-R Modalities Start: 12/28/21 16:41 Freq: Status: Active Protocol: Document 04/20/22 08:07 [facility] (Rec: 04/20/22 09:01 [facility] [id number]) Hot Pack/Cold Pack Treatment Cold Pack Comments didn't feel need Ultrasound Therapy Treatment Left Shoulder Treatment Duration (minutes) 8 Patient Position Hooklying Coupling Medium Ultrasound Gel Applicator Size (cm2) 5 Mode Setting Continuous Duty Cycle 100% Intensity Setting (w/cm2) 1.5 Comments 6 min w/ L supraspinatus distal insertion and and Biceps long head focus, 2 min w/ L pec focus. Good feedback response PT-OP-T Assessment and Plan Start: 12/28/21 16:41 Freq: Status: Active Protocol: Document 04/20/22 08:07 [facility] (Rec: 04/20/22 09:01 [facility] [id number]) Physical Therapy Assessment Impairments Impairments Activity Tolerance,Edema,ROM, Strength Goals Four Impairment activity tolerance Impairment Quickdash disability index score 60% Short Term Goal (STG) decrease quickdash score to no greater than 40% as measure of improved left UE activity tolerance 04/12/22: goal met. Score 30% STG Duration goal met [facility] Goal (LTG) decrease quickdash score to no greater than 10% as measure of improved left UE activity tolerance and return to usual activities. LTG Duration 05/22/22 Three Impairment Limited ROM and strength left UE Short Term Goal (STG) Patient able to tolerate a progressive HEP following post -op protocol left UE for purposes of ROM and strengthening 04/12/22: goal met, ongoing progression STG Duration goal met [facility] Goal (LTG) Patient will demonstrate left UE ROM and strength of at least 4+/5 all muscle groups to allow a return to prior level of function 04/12/22: left shoulder strength 3-/5, elbow 4/5. LTG Duration 05/22/22 Two Impairment edema left UE contributing to pain and limited motion [facility] Goal (LTG) Decrease edema left UE to within 1 cm measurements on right to allow normal motion all left UE joints and return to activity 04/12/22: mostly met, excellent progress LTG Duration 05/22/22 One Impairment pain left UE Impairment as high as 7/10 Short Term Goal (STG) Decrease pain to no greater than 4/10 04/12/22: goal met, today reports pain 4/10 STG Duration goal met [facility] Goal (LTG) Decrease pain to no greater than 2/10 with all usual activities LTG Duration 05/22/22 Progress Towards Goals Progress Towards Goals Progressing Toward Goals Assessment Summary Assessment ROM continue to improve, and functional use left UE improving. States he can now reach back to help put his belt on. Progressed ther ex today with good tolerance. Physical Therapy Plan Frequency and Duration Frequency of Treatment 2x/Week Duration of treatment (weeks) 8 Plan of Care Start Date 03/23/22 Plan of Care End Date 07/01/22 Therapeutic Interventions Therapeutic Interventions Aquatic Therapy,Home Exercise Program,Manual Therapy,Patient /Caregiver Education,Self-Care /Home Management,Soft Tissue Mobilization,Therapeutic Activities,Therapeutic Exercises Modalities Cold Pack/Ice Massage,Electric Stimulation,Hot Packs, Infrared Therapy,Iontophoresis ,Ultrasound Next Visit Focus/Plan Next Note Type Treatment Note Next Visit Plan Assess response to today's session, progress as indicated . with functional tasks, continued ROM and strengthening
--- NOTE | 2022-04-22 09:00 | PT.OTN ---
Current Diagnoses Pain in left arm (04/22/22) Weakness (04/22/22) Strain of muscle, fascia and tendon of other parts of biceps, left arm, initial encounter (04/22/22) Encounter for other specified surgical aftercare (04/22/22) Physical Therapy Treatment Note PT-OP-A Visit Information Start: 12/28/21 16:41 Freq: Status: Active Protocol: Document 04/22/22 08:18 SP (Rec: 04/22/22 09:04 SP [id number]) Out-Patient Physical Therapy Visit Information Visit Information Visit Type Treatment Note Visit Note Sentmessage for more appts, include PT for possible reassessment for L&I if needed to continue Visit Start Time 08:18 Visit Stop Time 09:00 Total Visit Minutes 42 Visit Number 24 Number of EXHIBITOR SALES Visits 1 Evaluation Information Evaluation Date 12/29/21 Precautions Precautions 03/08/22: *Sensitivity reaction to Ktaping, discontinue. 03/04/22: per Dr. Arellano note dx Adhesive capsulitis scanned in (03/10/22)- stretch left shoulder in all planes and rotations. He had an injection at our visit on 03/04/22. 03/03/22 MRI impression: 1. Low-grade articular and bursal surface partial thickness tear involving distal supraspinatus extending to musculotendinous junction. Distal infraspinatus tendinosis. No full-thickness rotator cuff tendon rupture. Very mild supraspinatus muscle atrophy. 2. Moderate acromioclavicular joint osteoarthritis. No fracture or dislocation. Small amount of joint effusion and subacromial subdeltoid bursal fluid. 3. Suggestion of subtle superior anterior labral tear at 12 to 1 o'clock position. 4. Moderate grade intrasubstance partial- thickness tear involving proximal intra-articular portion of long head of biceps. 11/23/21 bicep repair. PT-OP-B Current Condition Start: 12/28/21 16:41 Freq: Status: Active Protocol: Document 12/29/21 08:57 SAK (Rec: 12/29/21 09:48 SAK [id number]) Current Condition History of Current Condition Onset Date 11/23/21 Current Complaints left elbow pain, shoulder pain swelling left UE especially hand. History of Current Condition was picking up heavy flat screen TV, heard pop and felt like bicep broke and retracted into his arm. Had surgical repair 11/23/21; [facility] doctor told him a lot of scar tissue had to be cut out, was worried about tearing free so didn't want him to do PT initially. Follow-up appointment 2 weeks ago; [facility] doctor wanted him to do recovery without PT. advised bending and straightening his arm and rotating his arm. Swelling not going down, pain is incredible so asked for PT . Has been doing ROM at elbow as advised and some hand and finger ROM, occasionally trying to reach up overhead. Was told not to lift over a pound, no pushing or pulling. No icing recently because doesn't seem to be helping. 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 States he has Dr maurer on 05/03 and no more appts scheduled for PT. Wondering if need approval to make more. Patient Reported Progress Improving PT-OP-H Neuro Start: 12/28/21 16:41 Freq: Status: Active Protocol: Document 12/29/21 08:57 SAK (Rec: 12/30/21 16:51 SAK [id number]) Sensation Evaluation Gross Sensation Gross Sensation Left UE Impaired Sensation Description Paresthesia PT-OP-J Posture/Palpation/Skin Start: 12/28/21 16:41 Freq: Status: Active Protocol: Document 12/29/21 08:57 SAK (Rec: 12/30/21 16:51 SAK [id number]) Posture Evaluation Position Sitting Shoulder Posture (L) Rounded Arm Posture (L) Internally Rotated Palpation Assessment Location One Palpation Location left UE Palpation Findings Edema,Muscle Guarding, Tenderness Palpation Details Patient very tender to touch throughout left UE with moderate swelling left forearm and hand. Incisions healing well; anterior elbow mostly closed with immature scar, posterior elbow scar still with steri strips but no signs or symptoms of infection. Skin Assessment Edema Assessment Left Arm Edema Appearance Discolored,Puffy,Taut Incisional Assessment Incision Appearance/Comments as above PT-OP-K Range of Motion Start: 12/28/21 16:41 Freq: Status: Active Protocol: Document 03/23/22 11:20 LRN (Rec: 03/23/22 12:22 LRN [id number]) Shoulder Goniometric Range of Motion Shoulder Left Active Shoulder ROM WFL No Testing Position Supine Flexion 125 Abduction 57 External Rotation at 45 degrees 12 Abduction Internal Rotation Behind Back (text) Posterolateral L hip Comments Sitting L shoulder ~AROM: flex 70 deg's, AB 60 deg's, ER 40 deg's, IR - reaches to posterolateral L hip. PT-OP-M Strength Start: 12/28/21 16:41 Freq: Status: Active Protocol: Document 03/23/22 11:20 LRN (Rec: 03/23/22 12:22 LRN [id number]) Shoulder Strength Shoulder Manual Muscle Testing Left Comments Generally 2/5, limited by pain and weakness. PT-OP-Q Treatments Start: 12/28/21 16:41 Freq: Status: Active Protocol: Document 04/22/22 08:18 SP (Rec: 04/22/22 09:04 SP [id number]) Therapeutic Exercises Sitting Exercises valve turn Sitting Exercise Name STANDING floor various angles and heels on noodle Resistance manual and cable 20# w/ Heel on noodle (ladder assimulation ) Equipment Used BAPs supported on leg curl body solid and OH cable Reps/Minutes 20 min Comments good feeback response, game TB #3+#4 for self application - good feedback Standing Exercises shoulder press OH Standing Exercise Name assimulate put items on shelf Side bilateral Resistance 7# DBs BUE Reps/Minutes x10 reps Comments cued press wt over shoulder to decrease GH jt stressors- good response Therapeutic Activity Therapeutic Activity mechanics/box lift/transport Name transfer/carry/walk wt box floor to shelf Comments 14#> 24# DBs (good UE effort) in box lift from floor to waist height and pain free. He states can lift up to 80# required at work prior to injury. Good mechanics demonstrated. PT-OP-R Modalities Start: 12/28/21 16:41 Freq: Status: Active Protocol: Document 04/20/22 08:07 SAK (Rec: 04/20/22 09:01 SAK [id number]) Hot Pack/Cold Pack Treatment Cold Pack Comments didn't feel need Ultrasound Therapy Treatment Left Shoulder Treatment Duration (minutes) 8 Patient Position Hooklying Coupling Medium Ultrasound Gel Applicator Size (cm2) 5 Mode Setting Continuous Duty Cycle 100% Intensity Setting (w/cm2) 1.5 Comments 6 min w/ L supraspinatus distal insertion and and Biceps long head focus, 2 min w/ L pec focus. Good feedback response PT-OP-T Assessment and Plan Start: 12/28/21 16:41 Freq: Status: Active Protocol: Document 04/22/22 08:18 SP (Rec: 04/22/22 09:04 SP [id number]) Physical Therapy Assessment Goals Four Impairment activity tolerance Impairment Quickdash disability index score 60% Short Term Goal (STG) decrease quickdash score to no greater than 40% as measure of improved left UE activity tolerance 04/12/22: goal met. Score 30% STG Duration goal met [facility] Goal (LTG) decrease quickdash score to no greater than 10% as measure of improved left UE activity tolerance and return to usual activities. LTG Duration 05/22/22 Three Impairment Limited ROM and strength left UE Short Term Goal (STG) Patient able to tolerate a progressive HEP following post -op protocol left UE for purposes of ROM and strengthening 04/12/22: goal met, ongoing progression STG Duration goal met [facility] Goal (LTG) Patient will demonstrate left UE ROM and strength of at least 4+/5 all muscle groups to allow a return to prior level of function 04/12/22: left shoulder strength 3-/5, elbow 4/5. LTG Duration 05/22/22 Two Impairment edema left UE contributing to pain and limited motion [facility] Goal (LTG) Decrease edema left UE to within 1 cm measurements on right to allow normal motion all left UE joints and return to activity 04/12/22: mostly met, excellent progress LTG Duration 05/22/22 One Impairment pain left UE Impairment as high as 7/10 Short Term Goal (STG) Decrease pain to no greater than 4/10 04/12/22: goal met, today reports pain 4/10 STG Duration goal met [facility] Goal (LTG) Decrease pain to no greater than 2/10 with all usual activities LTG Duration 05/22/22 Assessment Summary Assessment Pt good feedback response to resisted ther ex against manual and use pulleys/ therabands for 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 Good effort and painfree throughout tx. Physical Therapy Plan Frequency and Duration Frequency of Treatment 2x/Week Duration of treatment (weeks) 8 Plan of Care Start Date 03/23/22 Plan of Care End Date 07/01/22 Therapeutic Interventions Therapeutic Interventions Aquatic Therapy,Home Exercise Program,Manual Therapy,Patient /Caregiver Education,Self-Care /Home Management,Soft Tissue Mobilization,Therapeutic Activities,Therapeutic Exercises Modalities Cold Pack/Ice Massage,Electric Stimulation,Hot Packs, Infrared Therapy,Iontophoresis ,Ultrasound Next Visit Focus/Plan Next Note Type Treatment Note Next Visit Plan Assess response to today's session, progress as indicated . with functional tasks, continued ROM and strengthening
--- NOTE | 2022-04-27 17:31 | PT.OTN ---
Current Diagnoses Pain in left arm (04/27/22) Weakness (04/27/22) Strain of muscle, fascia and tendon of other parts of biceps, left arm, initial encounter (04/27/22) Encounter for other specified surgical aftercare (04/27/22) Physical Therapy Treatment Note PT-OP-A Visit Information Start: 12/28/21 16:41 Freq: Status: Active Protocol: Document 04/27/22 09:05 LRN (Rec: 04/27/22 09:48 LRN [id number]) Out-Patient Physical Therapy Visit Information Visit Information Visit Type Treatment Note Visit Note 4 since last PN Visit Start Time 09:05 Visit Stop Time 09:46 Total Visit Minutes 41 Visit Number 25 Evaluation Information Evaluation Date 12/29/21 Precautions Precautions 03/08/22: *Sensitivity reaction to Ktaping, discontinue. 03/04/22: per Dr. Arellano note dx Adhesive capsulitis scanned in (03/10/22)- stretch left shoulder in all planes and rotations. He had an injection at our visit on 03/04/22. 03/03/22 MRI impression: 1. Low-grade articular and bursal surface partial thickness tear involving distal supraspinatus extending to musculotendinous junction. Distal infraspinatus tendinosis. No full-thickness rotator cuff tendon rupture. Very mild supraspinatus muscle atrophy. 2. Moderate acromioclavicular joint osteoarthritis. No fracture or dislocation. Small amount of joint effusion and subacromial subdeltoid bursal fluid. 3. Suggestion of subtle superior anterior labral tear at 12 to 1 o'clock position. 4. Moderate grade intrasubstance partial- thickness tear involving proximal intra-articular portion of long head of biceps. 11/23/21 bicep repair. PT-OP-B Current Condition Start: 12/28/21 16:41 Freq: Status: Active Protocol: Document 12/29/21 08:57 SAK (Rec: 12/29/21 09:48 SAK [id number]) Current Condition History of Current Condition Onset Date 11/23/21 Current Complaints left elbow pain, shoulder pain swelling left UE especially hand. History of Current Condition was picking up heavy flat screen TV, heard pop and felt like bicep broke and retracted into his arm. Had surgical repair 11/23/21; states doctor told him a lot of scar tissue had to be cut out, was worried about tearing free so didn't want him to do PT initially. Follow-up appointment 2 weeks ago; states doctor wanted him to do recovery without PT. advised bending and straightening his arm and rotating his arm. Swelling not going down, pain is incredible so asked for PT . Has been doing ROM at elbow as advised and some hand and finger ROM, occasionally trying to reach up overhead. Was told not to lift over a pound, no pushing or pulling. No icing recently because doesn't seem to be helping. 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 Feeling better, being able to do more. Every week gets better and better, things get easier and easier, like overhead reaching and picking things up. Doing more with L arm. One day last week wasn't as flexible as usual because worked it, but the next day was just fine. PT-OP-H Neuro Start: 12/28/21 16:41 Freq: Status: Active Protocol: Document 12/29/21 08:57 [facility] (Rec: 12/30/21 16:51 [facility] [id number]) Sensation Evaluation Gross Sensation Gross Sensation Left UE Impaired Sensation Description Paresthesia PT-OP-J Posture/Palpation/Skin Start: 12/28/21 16:41 Freq: Status: Active Protocol: Document 12/29/21 08:57 [facility] (Rec: 12/30/21 16:51 [facility] [id number]) Posture Evaluation Position Sitting Shoulder Posture (L) Rounded Arm Posture (L) Internally Rotated Palpation Assessment Location One Palpation Location left UE Palpation Findings Edema,Muscle Guarding, Tenderness Palpation Details Patient very tender to touch throughout left UE with moderate swelling left forearm and hand. Incisions healing well; anterior elbow mostly closed with immature scar, posterior elbow scar still with steri strips but no signs or symptoms of infection. Skin Assessment Edema Assessment Left Arm Edema Appearance Discolored,Puffy,Taut Incisional Assessment Incision Appearance/Comments as above PT-OP-K Range of Motion Start: 12/28/21 16:41 Freq: Status: Active Protocol: Document 03/23/22 11:20 LRN (Rec: 03/23/22 12:22 LRN [id number]) Shoulder Goniometric Range of Motion Shoulder Left Active Shoulder ROM WFL No Testing Position Supine Flexion 125 Abduction 57 External Rotation at 45 degrees 12 Abduction Internal Rotation Behind Back (text) Posterolateral L hip Comments Sitting L shoulder ~AROM: flex 70 deg's, AB 60 deg's, ER 40 deg's, IR - reaches to posterolateral L hip. PT-OP-M Strength Start: 12/28/21 16:41 Freq: Status: Active Protocol: Document 03/23/22 11:20 LRN (Rec: 03/23/22 12:22 LRN [id number]) Shoulder Strength Shoulder Manual Muscle Testing Left Comments Generally 2/5, limited by pain and weakness. PT-OP-Q Treatments Start: 12/28/21 16:41 Freq: Status: Active Protocol: Document 04/27/22 09:05 LRN (Rec: 04/27/22 09:48 LRN [id number]) Cardio Equipment Upper Body Ergometer (UBE) Duration (Minutes) 8 RPM 120 Seat Position 12 Height 2 Other cuing for fwd/bkwd 1' each way Therapeutic Exercises Sitting Exercises valve turn Sitting Exercise Name STANDING floor various angles and heels on noodle Resistance manual and cable 20# w/ Heel on noodle (ladder assimulation ) Equipment Used BAPs supported on leg curl body solid and [place] cable Reps/Minutes 20 min Comments good feeback response, game TB #3+#4 for self application - good feedback pully Sitting Exercise Name AAROM: Flex 160 deg's, scaption 165 deg's Side left Equipment Used Green Back support Reps/Minutes 10 SH x 10 Comments Painfree range with francisco. Standing Exercises TB [place] Standing Exercise Name Circles, arms moving away from anchor spot Side bilateral Equipment Used 2 - Lev 4 TB Reps/Minutes 10' shoulder press [place] Standing Exercise Name assimulate put items on shelf Side bilateral Resistance 7# DBs BUE Reps/Minutes x10 reps Comments cued press wt over shoulder to decrease GH jt stressors- good response Therapeutic Activity Therapeutic Activity mechanics/box lift/transport Name transfer/carry/walk wt box floor to shelf Comments 14#> 23# DBs (good UE effort) in box lift from floor to waist height and pain free. He states can lift up to 80# required at work prior to injury. Good mechanics demonstrated. PT-OP-R Modalities Start: 12/28/21 16:41 Freq: Status: Active Protocol: Document 04/20/22 08:07 SAK (Rec: 04/20/22 09:01 SAK [id number]) Hot Pack/Cold Pack Treatment Cold Pack Comments didn't feel need Ultrasound Therapy Treatment Left Shoulder Treatment Duration (minutes) 8 Patient Position Hooklying Coupling Medium Ultrasound Gel Applicator Size (cm2) 5 Mode Setting Continuous Duty Cycle 100% Intensity Setting (w/cm2) 1.5 Comments 6 min w/ L supraspinatus distal insertion and and Biceps long head focus, 2 min w/ L pec focus. Good feedback response PT-OP-T Assessment and Plan Start: 12/28/21 16:41 Freq: Status: Active Protocol: Document 04/27/22 09:05 LRN (Rec: 04/27/22 09:48 LRN [id number]) Physical Therapy Assessment Goals Four Impairment activity tolerance Impairment Quickdash disability index score 60% Short Term Goal (STG) decrease quickdash score to no greater than 40% as measure of improved left UE activity tolerance 04/12/22: goal met. Score 30% STG Duration goal met Plate Cleaner Goal (LTG) decrease quickdash score to no greater than 10% as measure of improved left UE activity tolerance and return to usual activities. LTG Duration 05/22/22 Three Impairment Limited ROM and strength left UE Short Term Goal (STG) Patient able to tolerate a progressive HEP following post -op protocol left UE for purposes of ROM and strengthening 04/12/22: goal met, ongoing progression STG Duration goal met Jail Goal (LTG) Patient will demonstrate left UE ROM and strength of at least 4+/5 all muscle groups to allow a return to prior level of function 04/12/22: left shoulder strength 3-/5, elbow 4/5. LTG Duration 05/22/22 Two Impairment edema left UE contributing to pain and limited motion Jail Goal (LTG) Decrease edema left UE to within 1 cm measurements on right to allow normal motion all left UE joints and return to activity 04/12/22: mostly met, excellent progress LTG Duration 05/22/22 One Impairment pain left UE Impairment as high as 7/10 Short Term Goal (STG) Decrease pain to no greater than 4/10 04/12/22: goal met, today reports pain 4/10 STG Duration goal met Jail Goal (LTG) Decrease pain to no greater than 2/10 with all usual activities LTG Duration 05/22/22 Assessment Summary Assessment Pt doing very well, finds ex's last session helpful for strengthening for job. Good body mechanics wsith a little trinaing on lift and carry to keep closwe to COG. No pain L shoulder post therpay. Physical Therapy Plan Frequency and Duration Frequency of Treatment 2x/Week Duration of treatment (weeks) 8 Plan of Care Start Date 03/23/22 Plan of Care End Date 07/01/22 Next Visit Focus/Plan Next Note Type Treatment Note Next Visit Plan Assess progress to some of the goals, as needed, for pt's L& I recheck. Progress as indicated with functional tasks, continued ROM and strengthening.
--- NOTE | 2022-04-29 08:13 | PT.OTN ---
Current Diagnoses Pain in left arm (04/29/22) Weakness (04/29/22) Strain of muscle, fascia and tendon of other parts of biceps, left arm, initial encounter (04/29/22) Encounter for other specified surgical aftercare (04/29/22) Physical Therapy Treatment Note PT-OP-A Visit Information Start: 12/28/21 16:41 Freq: Status: Active Protocol: Document 04/29/22 07:27 [facility] (Rec: 04/29/22 08:06 [facility] [id number]) Out-Patient Physical Therapy Visit Information Visit Information Visit Type Treatment Note Visit Start Time 07:32 Visit Stop Time 08:12 Total Visit Minutes 40 Visit Number 26 Number of HI TEACHER Visits 0 PT-OP-B Current Condition Start: 12/28/21 16:41 Freq: Status: Active Protocol: Document 12/29/21 08:57 SAK (Rec: 12/29/21 09:48 SAK [id number]) Current Condition History of Current Condition Onset Date 11/23/21 Current Complaints left elbow pain, shoulder pain swelling left UE especially hand. History of Current Condition was picking up heavy flat screen TV, heard pop and felt like bicep broke and retracted into his arm. Had surgical repair 11/23/21; [facility] doctor told him a lot of scar tissue had to be cut out, was worried about tearing free so didn't want him to do PT initially. Follow-up appointment 2 weeks ago; [facility] doctor wanted him to do recovery without PT. advised bending and straightening his arm and rotating his arm. Swelling not going down, pain is incredible so asked for PT . Has been doing ROM at elbow as advised and some hand and finger ROM, occasionally trying to reach up overhead. Was told not to lift over a pound, no pushing or pulling. No icing recently because doesn't seem to be helping. 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 (Rec: 04/29/22 08:06 [facility] [id number]) OP-PT Subjective Patient Comments Patient Comments Pt reports shoulder was a little sore yesterday after exercises tues which is pretty typical. PT-OP-H Neuro Start: 12/28/21 16:41 Freq: Status: Active Protocol: Document 12/29/21 08:57 [facility] (Rec: 12/30/21 16:51 [facility] [id number]) Sensation Evaluation Gross Sensation Gross Sensation Left UE Impaired Sensation Description Paresthesia PT-OP-J Posture/Palpation/Skin Start: 12/28/21 16:41 Freq: Status: Active Protocol: Document 12/29/21 08:57 [facility] (Rec: 12/30/21 16:51 [facility] [id number]) Posture Evaluation Position Sitting Shoulder Posture (L) Rounded Arm Posture (L) Internally Rotated Palpation Assessment Location One Palpation Location left UE Palpation Findings Edema,Muscle Guarding, Tenderness Palpation Details Patient very tender to touch throughout left UE with moderate swelling left forearm and hand. Incisions healing well; anterior elbow mostly closed with immature scar, posterior elbow scar still with steri strips but no signs or symptoms of infection. Skin Assessment Edema Assessment Left Arm Edema Appearance Discolored,Puffy,Taut Incisional Assessment Incision Appearance/Comments as above PT-OP-K Range of Motion Start: 12/28/21 16:41 Freq: Status: Active Protocol: Document 04/29/22 07:27 [facility] (Rec: 04/29/22 08:10 [facility] [id number]) Shoulder Goniometric Range of Motion Shoulder Left Active Shoulder ROM WFL No Testing Position Supine Flexion 138 Extension 50 Abduction 148 External Rotation at 90 degrees 63 Abduction Internal Rotation Behind Back (text) L4 PT-OP-M Strength Start: 12/28/21 16:41 Freq: Status: Active Protocol: Document 04/29/22 07:27 [facility] (Rec: 04/29/22 08:10 [facility] [id number]) Shoulder Strength Shoulder Manual Muscle Testing Left Flexion 3+ Fair+ Extension 4+ Good+ Abduction (C5) 3+ Fair+ External Rotation 4+ Good+ Internal Rotation 4 Good Horizontal Abduction 4+ Good+ Horizontal Adduction 4+ Good+ Right Flexion 5 Normal Extension 5 Normal External Rotation 5 Normal Internal Rotation 5 Normal Horizontal Abduction 5 Normal Horizontal Adduction 5 Normal PT-OP-Q Treatments Start: 12/28/21 16:41 Freq: Status: Active Protocol: Document 04/29/22 07:27 [facility] (Rec: 04/29/22 08:06 [facility] [id number]) Cardio Equipment Upper Body Ergometer (UBE) Duration (Minutes) 7 RPM 120 Seat Position 12 Height 2 Other fwd/back Gym Equipment Cable Column (Body Solid) pull across Resistance 2 Reps/Time 15 B Therapeutic Exercises Sitting Exercises pully Sitting Exercise Name flex, scaption, abd, IR behind back Side left Reps/Minutes 10 SH x 3 ea Comments Painfree range with francisco. Standing Exercises overhead Standing Exercise Name pull down into add from overhead positioning uni Side bilateral Equipment Used L2 Reps/Minutes 10 ea Comments cues for scap flex Standing Exercise Name Habd w/flex Side bilateral Equipment Used L2 Reps/Minutes 10 Comments cues for scap TB [place] Standing Exercise Name Circles, arms moving away from anchor spot Side bilateral Equipment Used Lev 4 TB Reps/Minutes 15 ea direction shoulder press [place] Standing Exercise Name curl to pres Side bilateral Resistance 10# DBs BUE Reps/Minutes 2x10 reps Comments cued press wt over shoulder to decrease GH jt stressors- good response shld ext, rows Side left Resistance TB #3 Reps/Minutes 10x ea Comments cues for scapular activation shoulder IR and ER Standing Exercise Name IR Side left Equipment Used L3 Reps/Minutes 10 Therapeutic Activity Therapeutic Activity mechanics/box lift/transport Name transfer/carry/walk wt box floor to shelf Comments 14#> 24#>29# DBs (good UE effort) in box lift from floor to waist height and pain free . He states can lift up to 80# required at work prior to injury. Good mechanics demonstrated. PT-OP-R Modalities Start: 12/28/21 16:41 Freq: Status: Active Protocol: Document 04/20/22 08:07 [facility] (Rec: 04/20/22 09:01 SAK [id number]) Hot Pack/Cold Pack Treatment Cold Pack Comments didn't feel need Ultrasound Therapy Treatment Left Shoulder Treatment Duration (minutes) 8 Patient Position Hooklying Coupling Medium Ultrasound Gel Applicator Size (cm2) 5 Mode Setting Continuous Duty Cycle 100% Intensity Setting (w/cm2) 1.5 Comments 6 min w/ L supraspinatus distal insertion and and Biceps long head focus, 2 min w/ L pec focus. Good feedback response PT-OP-T Assessment and Plan Start: 12/28/21 16:41 Freq: Status: Active Protocol: Document 04/29/22 07:27 [facility] (Rec: 04/29/22 08:06 [facility] [id number]) Physical Therapy Assessment Goals Four Impairment activity tolerance Impairment Quickdash disability index score 60% Short Term Goal (STG) decrease quickdash score to no greater than 40% as measure of improved left UE activity tolerance 04/12/22: goal met. Score 30% STG Duration goal met Longterm Goal (LTG) decrease quickdash score to no greater than 10% as measure of improved left UE activity tolerance and return to usual activities. LTG Duration 05/22/22 Three Impairment Limited ROM and strength left UE Short Term Goal (STG) Patient able to tolerate a progressive HEP following post -op protocol left UE for purposes of ROM and strengthening 04/12/22: goal met, ongoing progression STG Duration goal met Water Softener Servicer Goal (LTG) Patient will demonstrate left UE ROM and strength of at least 4+/5 all muscle groups to allow a return to prior level of function 04/12/22: left shoulder strength 3-/5, elbow 4/5. LTG Duration 05/22/22 Two Impairment edema left UE contributing to pain and limited motion Longterm Goal (LTG) Decrease edema left UE to within 1 cm measurements on right to allow normal motion all left UE joints and return to activity 04/12/22: mostly met, excellent progress LTG Duration 05/22/22 One Impairment pain left UE Impairment as high as 7/10 Short Term Goal (STG) Decrease pain to no greater than 4/10 04/12/22: goal met, today reports pain 4/10 STG Duration goal met Longterm Goal (LTG) Decrease pain to no greater than 2/10 with all usual activities LTG Duration 05/22/22 Assessment Summary Assessment Pt tolerated strengthening well and tolearted inc in resistance and difficulty w/PT today w/good response w/o inc pain. Physical Therapy Plan Frequency and Duration Frequency of Treatment 2x/Week Duration of treatment (weeks) 8 Plan of Care Start Date 03/23/22 Plan of Care End Date 07/01/22 Next Visit Focus/Plan Next Note Type Treatment Note Next Visit Plan Progress as indicated with functional tasks, continued ROM and strengthening.
--- NOTE | 2022-05-06 16:01 | PT.OTN ---
Current Diagnoses Pain in left arm (05/06/22) Weakness (05/06/22) Strain of muscle, fascia and tendon of other parts of biceps, left arm, initial encounter (05/06/22) Encounter for other specified surgical aftercare (05/06/22) Physical Therapy Treatment Note PT-OP-A Visit Information Start: 12/28/21 16:41 Freq: Status: Active Protocol: Document 05/06/22 15:16 AW (Rec: 05/06/22 16:01 AW [id number]) Out-Patient Physical Therapy Visit Information Visit Information Visit Type Treatment Note Visit Start Time 15:20 Visit Stop Time 16:00 Total Visit Minutes 40 Visit Number 27 Number of [employer]POR[employer]N Visits 0 Evaluation Information Evaluation Date 12/29/21 Precautions Precautions 03/08/22: *Sensitivity reaction to Ktaping, discontinue. 03/04/22: per Dr. Arellano note dx Adhesive capsulitis scanned in (03/10/22)- stretch left shoulder in all planes and rotations. He had an injection at our visit on 03/04/22. 03/03/22 MRI impression: 1. Low-grade articular and bursal surface partial thickness tear involving distal supraspinatus extending to musculotendinous junction. Distal infraspinatus tendinosis. No full-thickness rotator cuff tendon rupture. Very mild supraspinatus muscle atrophy. 2. Moderate acromioclavicular joint osteoarthritis. No fracture or dislocation. Small amount of joint effusion and subacromial subdeltoid bursal fluid. 3. Suggestion of subtle superior anterior labral tear at 12 to 1 o'clock position. 4. Moderate grade intrasubstance partial- thickness tear involving proximal intra-articular portion of long head of biceps. 11/23/21 bicep repair. PT-OP-B Current Condition Start: 12/28/21 16:41 Freq: Status: Active Protocol: Document 12/29/21 08:57 SAK (Rec: 12/29/21 09:48 SAK [id number]) Current Condition History of Current Condition Onset Date 11/23/21 Current Complaints left elbow pain, shoulder pain swelling left UE especially hand. History of Current Condition was picking up heavy flat screen TV, heard pop and felt like bicep broke and retracted into his arm. Had surgical repair 11/23/21; states doctor told him a lot of scar tissue had to be cut out, was worried about tearing free so didn't want him to do PT initially. Follow-up appointment 2 weeks ago; states doctor wanted him to do recovery without PT. advised bending and straightening his arm and rotating his arm. Swelling not going down, pain is incredible so asked for PT . Has been doing ROM at elbow as advised and some hand and finger ROM, occasionally trying to reach up overhead. Was told not to lift over a pound, no pushing or pulling. No icing recently because doesn't seem to be helping. 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 Pt would like to return to full duty PT-OP-H Neuro Start: 12/28/21 16:41 Freq: Status: Active Protocol: Document 12/29/21 08:57 SAK (Rec: 12/30/21 16:51 SAK [id number]) Sensation Evaluation Gross Sensation Gross Sensation Left UE Impaired Sensation Description Paresthesia PT-OP-J Posture/Palpation/Skin Start: 12/28/21 16:41 Freq: Status: Active Protocol: Document 12/29/21 08:57 SAK (Rec: 12/30/21 16:51 SAK [id number]) Posture Evaluation Position Sitting Shoulder Posture (L) Rounded Arm Posture (L) Internally Rotated Palpation Assessment Location One Palpation Location left UE Palpation Findings Edema,Muscle Guarding, Tenderness Palpation Details Patient very tender to touch throughout left UE with moderate swelling left forearm and hand. Incisions healing well; anterior elbow mostly closed with immature scar, posterior elbow scar still with steri strips but no signs or symptoms of infection. Skin Assessment Edema Assessment Left Arm Edema Appearance Discolored,Puffy,Taut Incisional Assessment Incision Appearance/Comments as above PT-OP-K Range of Motion Start: 12/28/21 16:41 Freq: Status: Active Protocol: Document 04/29/22 07:27 [facility] (Rec: 04/29/22 08:10 [facility] [id number]) Shoulder Goniometric Range of Motion Shoulder Left Active Shoulder ROM WFL No Testing Position Supine Flexion 138 Extension 50 Abduction 148 External Rotation at 90 degrees 63 Abduction Internal Rotation Behind Back (text) L4 PT-OP-M Strength Start: 12/28/21 16:41 Freq: Status: Active Protocol: Document 04/29/22 07:27 [facility] (Rec: 04/29/22 08:10 [facility] [id number]) Shoulder Strength Shoulder Manual Muscle Testing Left Flexion 3+ Fair+ Extension 4+ Good+ Abduction (C5) 3+ Fair+ External Rotation 4+ Good+ Internal Rotation 4 Good Horizontal Abduction 4+ Good+ Horizontal Adduction 4+ Good+ Right Flexion 5 Normal Extension 5 Normal External Rotation 5 Normal Internal Rotation 5 Normal Horizontal Abduction 5 Normal Horizontal Adduction 5 Normal PT-OP-Q Treatments Start: 12/28/21 16:41 Freq: Status: Active Protocol: Document 05/06/22 15:16 AW (Rec: 05/06/22 16:01 AW [id number]) Therapeutic Exercises Sitting Exercises valve turn Sitting Exercise Name STANDING floor various angles; feet on blue airex pads Resistance manual and cable 20# w/ Heel on noodle (ladder assimulation ) Reps/Minutes 20 min Comments good feeback response, game TB #3+#4 for self application - good feedback flexbar Sitting Exercise Name elbow at side, scapula engaged , fwd/bck, side to side Equipment Used red and blue flexbar Reps/Minutes 30 sec x 2 ea Standing Exercises overhead Standing Exercise Name pull down into add from overhead positioning uni Side bilateral Equipment Used L3 Reps/Minutes 10 ea Comments cues for scap flex Standing Exercise Name Habd w/flex Side bilateral Equipment Used L3 Reps/Minutes 10 Comments added march in place for core engagement TB [place] Standing Exercise Name Circles, arms moving away from anchor spot Side bilateral Equipment Used Lev 4 TB Reps/Minutes 15 ea direction shoulder press [place] Standing Exercise Name curl to pres; squat to press Side bilateral Resistance 10# DBs BUE Reps/Minutes 2x10 reps Comments cued press wt over shoulder to decrease GH jt stressors- good response shld ext, rows Side left Resistance TB #3 Reps/Minutes 10x ea Comments cues for scapular activation shoulder IR and ER Standing Exercise Name IR Side left Equipment Used L3 Reps/Minutes 10 Therapeutic Activity Therapeutic Activity mechanics/box lift/transport Name transfer/carry/walk wt box floor to shelf Comments 29# DBs (good effort) in box lift from floor to waist height x 8 reps. Good mechanics demonstrated. PT-OP-R Modalities Start: 12/28/21 16:41 Freq: Status: Active Protocol: Document 04/20/22 08:07 SAK (Rec: 04/20/22 09:01 SAK [id number]) Hot Pack/Cold Pack Treatment Cold Pack Comments didn't feel need Ultrasound Therapy Treatment Left Shoulder Treatment Duration (minutes) 8 Patient Position Hooklying Coupling Medium Ultrasound Gel Applicator Size (cm2) 5 Mode Setting Continuous Duty Cycle 100% Intensity Setting (w/cm2) 1.5 Comments 6 min w/ L supraspinatus distal insertion and and Biceps long head focus, 2 min w/ L pec focus. Good feedback response PT-OP-T Assessment and Plan Start: 12/28/21 16:41 Freq: Status: Active Protocol: Document 05/06/22 15:16 AW (Rec: 05/06/22 16:01 AW [id number]) Physical Therapy Assessment Goals Four Impairment activity tolerance Impairment Quickdash disability index score 60% Short Term Goal (STG) decrease quickdash score to no greater than 40% as measure of improved left UE activity tolerance 04/12/22: goal met. Score 30% STG Duration goal met [employer] Goal (LTG) decrease quickdash score to no greater than 10% as measure of improved left UE activity tolerance and return to usual activities. LTG Duration 05/22/22 Three Impairment Limited ROM and strength left UE Short Term Goal (STG) Patient able to tolerate a progressive HEP following post -op protocol left UE for purposes of ROM and strengthening 04/12/22: goal met, ongoing progression STG Duration goal met [employer]ic Goal (LTG) Patient will demonstrate left UE ROM and strength of at least 4+/5 all muscle groups to allow a return to prior level of function 04/12/22: left shoulder strength 3-/5, elbow 4/5. LTG Duration 05/22/22 Two Impairment edema left UE contributing to pain and limited motion [employer] Alley Mechanic Goal (LTG) Decrease edema left UE to within 1 cm measurements on right to allow normal motion all left UE joints and return to activity 04/12/22: mostly met, excellent progress LTG Duration 05/22/22 One Impairment pain left UE Impairment as high as 7/10 Short Term Goal (STG) Decrease pain to no greater than 4/10 04/12/22: goal met, today reports pain 4/10 STG Duration goal met [employer] Alley Mechanic Goal (LTG) Decrease pain to no greater than 2/10 with all usual activities LTG Duration 05/22/22 Assessment Summary Assessment Pt did well with change in surface type for overhead valve simulation. He demonstrated good lifting form and was able to lift and carry ~30 pounds x 8 reps with no degradation in form. Physical Therapy Plan Frequency and Duration Frequency of Treatment 2x/Week Duration of treatment (weeks) 8 Plan of Care Start Date 03/23/22 Plan of Care End Date 05/18/22 Next Visit Focus/Plan Next Note Type Treatment Note Next Visit Plan Progress as indicated with functional tasks, continued ROM and strengthening.
--- NOTE | 2022-05-25 15:07 | PT.OPDS ---
Current Diagnoses Pain in left arm (05/06/22) Weakness (05/06/22) Strain of muscle, fascia and tendon of other parts of biceps, left arm, initial encounter (05/06/22) Encounter for other specified surgical aftercare (05/06/22) Visit Care Team Role Provider Type Radha Brito MD Family Provider Physician Primary Care Provider Specialty: Family Practice Address: [address] [place] [address], [address], [place], [address] Email: [email or web address] Alex Arellano MD Attending Provider Physician Referring Provider Specialty: Orthopedics Orthopedic Surgery Address: [address] [place] [address], [place], [address] Email: [email or web address] Visit Number Visit Number 27 Discharge Summary PT-OP-B Current Condition Start: 12/28/21 16:41 Freq: Status: Active Protocol: Document 12/29/21 08:57 [facility] (Rec: 12/29/21 09:48 [facility] [id number]) Current Condition History of Current Condition Onset Date 11/23/21 Current Complaints left elbow pain, shoulder pain swelling left UE especially hand. History of Current Condition was picking up heavy flat screen TV, heard pop and felt like bicep broke and retracted into his arm. Had surgical repair 11/23/21; [facility] doctor told him a lot of scar tissue had to be cut out, was worried about tearing free so didn't want him to do PT initially. Follow-up appointment 2 weeks ago; [facility] doctor wanted him to do recovery without PT. advised bending and straightening his arm and rotating his arm. Swelling not going down, pain is incredible so asked for PT . Has been doing ROM at elbow as advised and some hand and finger ROM, occasionally trying to reach up overhead. Was told not to lift over a pound, no pushing or pulling. No icing recently because doesn't seem to be helping. 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 Pt would like to return to full duty PT-OP-H Neuro Start: 12/28/21 16:41 Freq: Status: Active Protocol: Document 12/29/21 08:57 SAK (Rec: 12/30/21 16:51 SAK [id number]) Sensation Evaluation Gross Sensation Gross Sensation Left UE Impaired Sensation Description Paresthesia PT-OP-J Posture/Palpation/Skin Start: 12/28/21 16:41 Freq: Status: Active Protocol: Document 12/29/21 08:57 SAK (Rec: 12/30/21 16:51 SAK [id number]) Posture Evaluation Position Sitting Shoulder Posture (L) Rounded Arm Posture (L) Internally Rotated Palpation Assessment Location One Palpation Location left UE Palpation Findings Edema,Muscle Guarding, Tenderness Palpation Details Patient very tender to touch throughout left UE with moderate swelling left forearm and hand. Incisions healing well; anterior elbow mostly closed with immature scar, posterior elbow scar still with steri strips but no signs or symptoms of infection. Skin Assessment Edema Assessment Left Arm Edema Appearance Discolored,Puffy,Taut Incisional Assessment Incision Appearance/Comments as above PT-OP-K Range of Motion Start: 12/28/21 16:41 Freq: Status: Active Protocol: Document 04/29/22 07:27 [facility] (Rec: 04/29/22 08:10 [facility] [id number]) Shoulder Goniometric Range of Motion Shoulder Left Active Shoulder ROM WFL No Testing Position Supine Flexion 138 Extension 50 Abduction 148 External Rotation at 90 degrees 63 Abduction Internal Rotation Behind Back (text) L4 PT-OP-M Strength Start: 12/28/21 16:41 Freq: Status: Active Protocol: Document 04/29/22 07:27 [facility] (Rec: 04/29/22 08:10 [facility] [id number]) Shoulder Strength Shoulder Manual Muscle Testing Left Flexion 3+ Fair+ Extension 4+ Good+ Abduction (C5) 3+ Fair+ External Rotation 4+ Good+ Internal Rotation 4 Good Horizontal Abduction 4+ Good+ Horizontal Adduction 4+ Good+ Right Flexion 5 Normal Extension 5 Normal External Rotation 5 Normal Internal Rotation 5 Normal Horizontal Abduction 5 Normal Horizontal Adduction 5 Normal PT-OP-T Assessment and Plan Start: 12/28/21 16:41 Freq: Status: Active Protocol: Document 05/25/22 15:07 [facility] (Rec: 05/25/22 15:07 [facility] [id number]) Physical Therapy Plan Discharge Physical Therapy Discharge Reasons Goals Met Discharge Comments Patient released to full work duty
== END 2022-05-27 14:14 | disposition home or self-care (01) ==
LOC: PHYS 15:15
PROVIDERS: Family Provider Student in an Organized Health Care Education/Training Program; PCP Student in an Organized Health Care Education/Training Program; Referring Provider Orthopaedic Surgery; Visit Provider Orthopaedic Surgery
DX: S46.212A Strain of muscle, fascia and tendon of other parts of biceps, left arm, initial encounter (principal); Z48.89 Encounter for other specified surgical aftercare; M79.602 Pain in left arm; R53.1 Weakness
CPT/HCPCS: 97010; 97014; 97035; 97110; 97140; 97162; 97530; 97535; G0283

== ENCOUNTER → 2024-04-03 11:41 | Outpatient (CLI) | payer OTHER, SELFPAY ==
--- NOTE | 2024-04-03 11:45 | DI.RAD.S_ITS ---
PROCEDURE: XR KNEE RT 2V INDICATIONS: KNEE PAIN TECHNIQUE: 2 views of the knee were acquired. COMPARISON: None. FINDINGS: Nondisplaced right lateral tibial plateau fracture extends towards the lateral tibial tubercle and intercondylar notch. Minimal 2-3 mm depression suspected. Mild knee joint effusion. Mild degenerative changes in the mediolateral and patellofemoral compartments with small osteophytes. No radiographic evidence of dislocation or high attenuation soft tissue foreign body. IMPRESSION: Acute appearing right lateral tibial plateau fracture as discussed above. Findings were called to the office of Dr. Johnson Cheney and reported to [facility] 04/03/2024 at 3:17 p.m. Dictated by: Sebastián Hester M.D. on 04/03/2024 at 15:10 Approved by: Sebastián Hester M.D. on 04/03/2024 at 15:29
--- NOTE | 2024-04-03 11:45 | DI.RAD.S_ITS ---
PROCEDURE: XR SHOULDER RT 3 Views INDICATIONS: SHOULDER PAIN TECHNIQUE: 3 views of the shoulder were acquired. COMPARISON: No prior exams for the right shoulder. Comparison can be made to left shoulder x-ray, [facility], CR, XR SHOULDER LT MIN 2V, 04/03/2024, 10:52. FINDINGS: Approximately 1.5 cm well corticated calcific density just cephalad and lateral to the right acromioclavicular joint commonly related to degenerate changes, osteophyte, remote trauma or other heterotopic calcification. Severe degenerative changes right acromioclavicular joint with joint space narrowing and osteophytes. Mild degenerative changes right glenohumeral joint with small osteophytes. Degenerative changes of the lower cervical and thoracic spine partially imaged. No radiographic evidence of acute fracture, dislocation or high attenuation soft tissue foreign body. IMPRESSION: 1.5 cm calcific density just cephalad to the right acromioclavicular joint. Severe degenerative changes right acromioclavicular joint. Mild degenerative changes right glenohumeral joint. If symptoms persist or worsen, MRI could be performed. Dictated by: Sebastián Hester M.D. on 04/03/2024 at 16:52 Approved by: Sebastián Hester M.D. on 04/03/2024 at 16:56
--- NOTE | 2024-04-03 11:45 | DI.RAD.S_ITS ---
PROCEDURE: XR SHOULDER LT 2V INDICATIONS: SHOULDER PAIN TECHNIQUE: 2 views of the left shoulder were acquired. COMPARISON: None. FINDINGS: Mild degenerative changes of the left glenohumeral and moderate degenerate changes left acromioclavicular joint with joint space narrowing and small osteophytes. No radiographic evidence of displaced fracture, dislocation or high attenuation soft tissue foreign body. IMPRESSION: Degenerative changes of the left glenohumeral and acromioclavicular joints. If symptoms persist or worsen, or there is high clinical suspicion of acute abnormality, MR could be performed Dictated by: Sebastián Hester M.D. on 04/03/2024 at 16:48 Approved by: Sebastián Hester M.D. on 04/03/2024 at 16:51
--- NOTE | 2024-04-03 11:45 | DI.RAD.S_ITS ---
PROCEDURE: XR KNEE LT STANDING 2V INDICATIONS: KNEE PAIN TECHNIQUE: 2 views of the knee were acquired. COMPARISON: No prior left knee x-ray for comparison. Comparison can be made to prior x-ray of the right knee [facility], 2V, 04/03/2024, 10:58. FINDINGS: Bones: No fractures or dislocations. No suspicious bony lesions. Soft tissues: No joint effusion. No suspicious soft tissue calcifications. IMPRESSION: No radiographic evidence of left knee abnormality. If symptoms persist or worsen, MRI could be performed. Dictated by: Sebastián Hester M.D. on 04/03/2024 at 13:26 Approved by: Sebastián Hester M.D. on 04/03/2024 at 14:04
== END ==
LOC: RAD 11:44
PROVIDERS: Family Provider Student in an Organized Health Care Education/Training Program; PCP Family Medicine; Referring Provider Family Medicine; Visit Provider Family Medicine
DX: S82.141A Displaced bicondylar fracture of right tibia, initial encounter for closed fracture (principal); M25.512 Pain in left shoulder; M25.511 Pain in right shoulder; M25.561 Pain in right knee; M25.562 Pain in left knee; G89.29 Other chronic pain
CPT/HCPCS: 73030; 73560